=== PATIENT | female | born 1935 | race Caucasian/White ===

== ENCOUNTER 2018-12-26 23:33 | Emergency (ER) | payer OTHER, BC ==
[2018-12-27] MEDS ORDERED: HYDRALAZINE HCL 20 MG/ML VIAL ONE (00:16)
[2018-12-27] MEDS ORDERED: HYDROCODONE/APAP 10/325 TAB ONE (00:16)
[2018-12-27] MEDS ORDERED: HYDROCODONE/APAP 5/325 MG TAB ONE (00:19)
[2018-12-27 00:44] LABS: Absolute Lymphocytes (CBC) 2.4 K/uL (0.7-4.9); Absolute Monocytes 0.8 K/uL (0.1-1.3); Absolute Neutrophil 7.7 K/uL (1.8-8.0); Basophils % 0.6 % (0-1.3); Eosinophils % 0.1 % (0-4.4); Hematocrit 38.3 % (36.0-45.0); MPV 10.3 fL (7.6-11.3); Monocytes % 7.1 % (3.3-12.3); RBC Red Blood Cell Count 4.19 M/uL (3.86-4.86)
[2018-12-27 00:49] LABS: Potassium 4.2 mmol/L (3.5-5.1)
--- NOTE | 2018-12-27 00:52 | ER ---
Nurse's Notes [facility] Name: Julia Chappell Age: 83 yrs Sex: Female : 1935 Arrival Date: 12/26/2018 Time: 23:36 Bed 24 Private MD: Diagnosis: Hypertensive Urgency;Essential (primary) hypertension;Headache Presentation: 12/26 23:44 Presenting complaint: Patient states: neck pain and jaw pain x 6 weeks, BP was elevated tl2 tonight. Pt denies chest pain, dizziness or blurry vision. Transition of care: patient was not received from another setting of care. Onset of symptoms was December 26, 2018 at 22:00. Risk Assessment: Do you want to hurt yourself or someone else? Patient reports no desire to harm self or others. Initial Sepsis Screen: Does the patient meet any 2 criteria? No. Patient's initial sepsis screen is negative. Does the patient have a suspected source of infection? No. Patient's initial sepsis screen is negative. Care prior to arrival: None. 23:44 Method Of Arrival: Ambulatory tl2 23:44 Acuity: MAGI 3 tl2 Historical: - Allergies: 12/27 02:51 HYDRALAZINE; mg2 - Home Meds: 12/26 23:46 [place] Thyroid Oral [Active]; Zocor Oral [Active]; aspirin 81 mg Oral chew 1 tab once tl2 daily [Active]; timolol maleate 0.25 % Opht drop 1 drop once daily [Active]; - PMHx: 23:46 Hypertension; Hyperlipidemia; Hypothyroidism; tl2 - Immunization history:: Adult Immunizations up to date. - Social history:: Smoking status: Patient/guardian denies using tobacco. - Ebola Screening: : No symptoms or risks identified at this time. Screenin:47 Abuse screen: Denies threats or abuse. Nutritional screening: No deficits noted. tl2 Tuberculosis screening: No symptoms or risk factors identified. Fall Risk None identified. Assessment: 12/27 00:05 General: Appears in no apparent distress. comfortable, slender, well groomed, well tl3 developed, well nourished, Behavior is calm, cooperative, appropriate for age. Pain: Complains of pain in left temporal area. Neuro: Level of Consciousness is awake, alert, obeys commands, Oriented to person, place, time, situation, Appropriate for age. Cardiovascular: Patient's skin is warm and dry. Rhythm is sinus rhythm. Respiratory: Airway is patent Respiratory effort is even, unlabored, Respiratory pattern is regular, symmetrical. 01:03 Reassessment: patient for ct brain. pending discharge. mg2 02:18 Reassessment: ct brain done. waiting for official report. mg2 Vital Signs: 12/26 23:46 BP 200 / 99; Pulse 79; Resp 18; Pulse Ox 96% on R/A; Weight 66.22 kg; Height 5 ft. 3 tl2 in. (160.02 cm); Pain 4/10; 12/27 00:17 BP 186 / 68; Pulse 80; Resp 18; Pulse Ox 98% on R/A; tl3 00:51 BP 168 / 69; Pulse 77; Resp 17; Pulse Ox 100% on R/A; mg2 01:01 BP 112 / 91; Pulse 80; Resp 18; Pulse Ox 100% on R/A; mg2 02:16 BP 160 / 76; Pulse 80; Resp 18; Pulse Ox 100% on R/A; mg2 12/26 23:46 Body Mass Index 25.86 (66.22 kg, 160.02 cm) tl2 ED Course: 12/26 23:36 Patient arrived in ED. ds1 23:39 Osiris Ceron, ISABEL is Primary Nurse. tl3 23:45 Triage completed. tl2 23:46 Arm band placed on right wrist. tl2 23:49 Spenser Hurtado PA is PHCP. jr8 23:49 Ceasar Marques MD is Attending Physician. jr8 12/27 00:14 No provider procedures requiring assistance completed. Inserted saline lock: 20 gauge mg2 in right antecubital area, using aseptic technique. Blood collected. 00:17 Patient has correct armband on for positive identification. Bed in low position. Call tl3 light in reach. Side rails up X 1. Adult w/ patient. quality assurance monitor final on. Pulse ox on. NIBP on. 02:12 CT Head Brain wo Cont In Process Unspecified. EDMS 03:05 IV discontinued, intact, bleeding controlled, No redness/swelling at site. Pressure mg2 dressing applied. Administered Medications: 00:13 Drug: hydrALAZINE 10 mg Route: IV; Rate: calculated rate; Site: right antecubital; mg2 01:02 Follow up: Response: No adverse reaction; IV Status: Completed infusion mg2 00:13 Drug: [place] 5 mg-325 mg 1 tabs Route: PO; mg2 01:02 Follow up: Response: No adverse reaction; Marked relief of symptoms mg2 Outcome: 00:51 Discharge ordered by . jr8 02:07 Discharge ordered by . jr8 03:05 Discharged to home ambulatory, with family. mg2 03:05 Condition: stable 03:05 Discharge instructions given to patient, family, Instructed on discharge instructions, follow up and referral plans. Demonstrated understanding of instructions, follow-up care. 03:05 Patient left the ED. mg2 Signatures: Dispatcher [employer] EDRI Arcelia Quiñones ds1 Spenser Hurtado PA PA jr8 Dalila Anne RN RN tl2 Osiris Ceron RN RN tl3 Yash Peterson RN RN mg2 Corrections: (The following items were deleted from the chart) 00:17 00:05 Pain: Denies pain. tl3 tl3 02:18 01:03 Reassessment: patient for ct brain. pending discharge. mg2 mg2 02:51 02 23:46 Allergies: No Known Allergies; tl2 mg2
--- NOTE | 2018-12-27 00:52 | EDPHYS ---
Physician Documentation [facility] Name: Julia Chappell Age: 83 yrs Sex: Female : 1935 Arrival Date: 12/26/2018 Time: 23:36 Bed 24 Private MD: ED Physician Ceasar Marques HPI: 12/27 00:19 This 83 yrs old Female presents to ER via Ambulatory with complaints of Blood jr8 Pressure Problem. 00:19 Patient started to have temporal pain along with jaw pain approximately 6 weeks ago. jr8 Was worked up by PCP for temporal arteritis. Was negative for acute findings. Pain has been intermittent but became worse yesterday. Went to Urgent care and was given steroids yesterday. Today checked BP and noticed it to be abnormally high for her. Came to ED at that time for further evaluation . Severity of symptoms: At their worst the symptoms were mild in the emergency department the symptoms are unchanged. It is unknown whether or not the patient has had similar symptoms in the past. The patient has been recently seen by a physician:. Historical: - Allergies: 02:51 HYDRALAZINE; mg2 - Home Meds: 12/26 23:46 [place] Thyroid Oral [Active]; Zocor Oral [Active]; aspirin 81 mg Oral chew 1 tab once tl2 daily [Active]; timolol maleate 0.25 % Opht drop 1 drop once daily [Active]; - PMHx: 23:46 Hypertension; Hyperlipidemia; Hypothyroidism; tl2 - Immunization history:: Adult Immunizations up to date. - Social history:: Smoking status: Patient/guardian denies using tobacco. - Ebola Screening: : No symptoms or risks identified at this time. ROS: 12/27 00:19 Eyes: Negative for injury, pain, redness, and discharge, ENT: Negative for injury, jr8 pain, and discharge, Neck: Negative for injury, pain, and swelling, Cardiovascular: Negative for chest pain, palpitations, and edema, Respiratory: Negative for shortness of breath, cough, wheezing, and pleuritic chest pain, Abdomen/GI: Negative for abdominal pain, nausea, vomiting, diarrhea, and constipation, Back: Negative for injury and pain, MS/Extremity: Negative for injury and deformity, Skin: Negative for injury, rash, and discoloration. Neuro: Positive for headache, Negative for altered mental status, dizziness, gait disturbance, hearing loss, loss of consciousness, numbness, seizure activity, speech changes, syncope, near syncope, tingling, tinnitus, tremor, visual changes, weakness. Exam: 00:19 Eyes: Pupils equal round and reactive to light, extra-ocular motions intact. Lids and jr8 lashes normal. Conjunctiva and sclera are non-icteric and not injected. Cornea within normal limits. Periorbital areas with no swelling, redness, or edema. ENT: Nares patent. No nasal discharge, no septal abnormalities noted. Tympanic membranes are normal and external auditory canals are clear. Oropharynx with no redness, swelling, or masses, exudates, or evidence of obstruction, uvula midline. Mucous membranes moist. Neck: Trachea midline, no thyromegaly or masses palpated, and no cervical lymphadenopathy. Supple, full range of motion without nuchal rigidity, or vertebral point tenderness. No Meningismus. Cardiovascular: Regular rate and rhythm with a normal S1 and S2. No gallops, murmurs, or rubs. Normal PMI, no JVD. No pulse deficits. Respiratory: Lungs have equal breath sounds bilaterally, clear to auscultation and percussion. No rales, rhonchi or wheezes noted. No increased work of breathing, no retractions or nasal flaring. Abdomen/GI: Soft, non-tender, with normal bowel sounds. No distension or tympany. No guarding or rebound. No evidence of tenderness throughout. Back: No spinal tenderness. No costovertebral tenderness. Full range of motion. Skin: Warm, dry with normal turgor. Normal color with no rashes, no lesions, and no evidence of cellulitis. MS/ Extremity: Pulses equal, no cyanosis. Neurovascular intact. Full, normal range of motion. Neuro: Awake and alert, GCS 15, oriented to person, place, time, and situation. Cranial nerves II-XII grossly intact. Motor strength 5/5 in all extremities. Sensory grossly intact. Cerebellar exam normal. Normal gait. Vital Signs: 12/26 23:46 BP 200 / 99; Pulse 79; Resp 18; Pulse Ox 96% on R/A; Weight 66.22 kg; Height 5 ft. 3 tl2 in. (160.02 cm); Pain /10; 12/27 00:17 BP 186 / 68; Pulse 80; Resp 18; Pulse Ox 98% on R/A; tl3 00:51 BP 168 / 69; Pulse 77; Resp 17; Pulse Ox 100% on R/A; mg2 01:01 BP 112 / 91; Pulse 80; Resp 18; Pulse Ox 100% on R/A; mg2 02:16 BP 160 / 76; Pulse 80; Resp 18; Pulse Ox 100% on R/A; mg2 12/26 23:46 Body Mass Index 25.86 (66.22 kg, 160.02 cm) tl2 MDM: 12/26 23:49 Patient medically screened. jr8 12/27 00:50 Data reviewed: vital signs, nurses notes, lab test result(s), EKG, and as a result, I jr8 will discharge patient. Data interpreted: Pulse oximetry: on room air is 98 %. Interpretation: normal. Counseling: I had a detailed discussion with the patient and/or guardian regarding: the historical points, exam findings, and any diagnostic results supporting the discharge/admit diagnosis, lab results, the need for outpatient follow up, a family practitioner, to return to the emergency department if symptoms worsen or persist or if there are any questions or concerns that arise at home. ED course: Patients BP is coming down. Patient feeling better. No acute ECG or lab finding. Discussed with patient that she needs to f/u with PCP. Patient good with this plan . 12/26 23:53 Order name: CBC with Diff; Complete Time: 00:48 8 12/26 23:53 Order name: Basic Metabolic Panel; Complete Time: 00:50 8 12/26 23:53 Order name: EKG - Nurse/Tech; Complete Time: 00:14 8 12/27 01:02 Order name: CT Head Brain wo Cont mg2 12/26 23:53 Order name: IV; Complete Time: 00:14 8 Administered Medications: 00:13 Drug: hydrALAZINE 10 mg Route: IV; Rate: calculated rate; Site: right antecubital; mg2 01:02 Follow up: Response: No adverse reaction; IV Status: Completed infusion mg2 00:13 Drug: [place] 5 mg-325 mg 1 tabs Route: PO; mg2 01:02 Follow up: Response: No adverse reaction; Marked relief of symptoms mg2 Disposition: 03:29 Co-signature as Attending Physician, Ceasar Marques MD I agree with the assessment and kdr plan of care. Disposition: 12/27/18 02:07 Discharged to Home. Impression: Hypertensive Urgency, Essential (primary) hypertension, Headache. - Condition is Stable. - Discharge Instructions: Migraine Headache, Hypertension, Neuropathic Pain. - Medication Reconciliation Form, Thank You Letter, Antibiotic Education, Prescription Opioid Use form. - Follow up: Private Physician; When: 2 - 3 days; Reason: Recheck today's complaints, Continuance of care, Re-evaluation by your physician. - Problem is new. - Symptoms have improved. Signatures: Dispatcher [employer] EDMS Ceasar Marques MD MD kdr Roszak, Josh, PA PA jr8 Dalila Anne RN RN tl2 Yash Peterson RN RN mg2 Corrections: (The following items were deleted from the chart) 01:07 00:51 12/27/2018 00:51 Discharged to Home. Impression: Hypertensive Urgency; Essential jr8 (primary) hypertension. Condition is Stable. Forms are Medication Reconciliation Form, Thank You Letter, Antibiotic Education, Prescription Opioid Use. Follow up: Private Physician; When: 2 - 3 days; Reason: Recheck today's complaints, Continuance of care, Re-evaluation by your physician. Problem is new. Symptoms have improved. jr8 02:51 12/26 23:46 Allergies: No Known Allergies; tl2 mg2 12/27 03:05 02:07 12/27/2018 02:07 Discharged to Home. Impression: Hypertensive Urgency; Essential mg2 (primary) hypertension; Headache. Condition is Stable. Discharge Instructions: Migraine Headache, Hypertension, Neuropathic Pain. Forms are Medication Reconciliation Form, Thank You Letter, Antibiotic Education, Prescription Opioid Use. Follow up: Private Physician; When: 2 - 3 days; Reason: Recheck today's complaints, Continuance of care, Re-evaluation by your physician. Problem is new. Symptoms have improved. jr8
[2018-12-27 03:14] VITALS: O2SAT 100
[2018-12-27 03:16] VITALS: BP 160/76
--- NOTE | 2018-12-28 07:40 | EKG ---
Test Date: 2018-12-27 Test Time: 00:12:59 Reconstructive Dentist: TL MEASUREMENT RESULTS: Intervals: Rate: 72 WV: 166 QRSD: 96 QT: 388 QTc: 424 [place]: P: 56 WV: 166 QRS: -5 T: 50 INTERPRETIVE STATEMENTS: Normal sinus rhythm Left ventricular hypertrophy with repolarization abnormality Abnormal ECG Compared to ECG 08/26/2016 16:06:17 Left ventricular hypertrophy now present Early repolarization now present Electronically Signed On 12-28-18 07:37:49 CARDIAC REHABILITATION PROGRAM DIRECTOR by José Hazel
--- NOTE | 2018-12-28 20:34 | RAD REPORT ---
EXAM DESCRIPTION: CT - Head Brain Wo Cont - 12/27/2018 2:54 am CLINICAL HISTORY: The patient is 83 years old and is Female; HEADACHE TECHNIQUE: Axial computed tomography images of the head/brain without intravenous contrast. Sagittal and coronal reformatted images were created and reviewed. This CT exam was performed using one or more of the fo llowing dose reduction techniques: Automated exposure control, adjustment of the mA and/or kV accordi ng to patient size, and/or use of iterative reconstruction technique. COMPARISON: No relevant prior studies available. FINDINGS: Brain: Mild diffuse cerebral atrophy is present. The patricia-white matter differentiation is preserved. No hemorrhage. No significant white matter disease. No edema. No extra-axial fluid collect ions. Ventricles: Unremarkable. No ventriculomegaly. Bones/joints: No acute fracture. Sinuses: Unremarkable as visualized. No acute sinusitis. Mastoid air cells: Unremarkable as visualized. No mastoid effusion. IMPRESSION: No acute intracranial findings. Electronically signed by Negin Murray MD 12/27/2018 2:17 AM PLANT TECH Due to temporary technical issues with the PACS/Fluency reporting system, reports are being signed by the in house radiologist as a courtesy to ensure prompt reporting. The interpreting radiologist is f ully responsible for the content of the report.
== END 2018-12-27 03:05 | disposition home or self-care (01) ==
LOC: ER 23:33
DX: I16.0 Hypertensive urgency (principal); I10 Essential (primary) hypertension; E78.5 Hyperlipidemia, unspecified; E03.9 Hypothyroidism, unspecified; Z79.82 Long term (current) use of aspirin; Z88.8 Allergy status to other drugs, medicaments and biological substances
CPT/HCPCS: 36415; 70450; 80048; 85025; 93005; 96365; 99284; J0360

== ENCOUNTER 2023-06-07 14:07 | Emergency (ER) | payer OTHER, BC ==
--- OUTSIDE RECORDS SUMMARY | 2023-06-07 14:14 | XMS REPORT | Continuity of Care Document ---
:1935 Author Organization [facility] t Address [address] [place] [address] [address] [place] [address] Care Team Providers Name Role Phone Jaime Gerardo Attending Clinician Tobias Attending Clinician Unavailable Tim Gonsalez Attending Clinician Unavailable Phil Thompson Attending Clinician Tomas Bridges Attending Clinician Tobias Admitting Clinician Unavailable Tim Gonsalez Admitting Clinician Unavailable Tomas Bridges Admitting Clinician Payers Payer Name Policy Type Policy Number Effective Date Expiration Date Lana pike [place]: [id number] 2001 Sealed 00:00:00 [place] [id number] (MEDICARE 00:00:00 SUPPLEMENT) MEDICARE PART A \T\ [id number] 2001 B 00:00:00 BCBS TRADITIONAL [id number] 2001 00:00:00 Problems Condition Condition Condition Status Onset Resolution Last Treating Co mments Source Name Details Category Date Date Treatment Clinician Date Exostosis Exostosis Problem Active Aza nico of left of Left 9-27 Orthope foot Foot 00:00: dic 00 Sports Medicin e Metatarsal Metatarsal Problem Active A maria elena ye cassi 3-27 Orthope 00:00: dic 00 Sports Medicin e Acquired Acquired Problem Active Azale a deformity Deformity 3-27 Orth ope of toe of of Toe of 00:00: dic left foot Left Foot 00 Spor ts Medicin e Asthenia Asthenia Problem Active Azale a 1-03 Orthope 00:00: dic 00 Sports Medicin e Knee joint Knee Joint Problem Active 2015-11 A zalea effusion Effusion - Orthop e 00:00: dic 00 Sports Medicin e 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 1- Or thope knee joint Knee Joint 00:00: di c 00 Sports Medicin e Infected Infected Problem Active Azale a olecranon Olecranon 9- Orth ope bursa Bursa 00:00: dic 00 Sports Medicin e FALL FALL Diagnosis Active 2015-05-21 Mem oria Active 05-19 20:15:00 l 05/19/2015 16:30: Enrique warner [facility] [place] [facility] [employer] Problem Active Marli fracture Fracture 05-19 Orthop e 00:00: dic 00 Sports Medicin e Osteoarthr Osteoarthr Problem Active A zalea itis of itis of 05-11 Orthope knee Knee 00:00: dic 00 Sports Medicin e 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 05-11 Or thope t t 00:00: dic 00 Sports Medicin e Osteoarthr Osteoarthr Problem Active A zalea itis itis 2-05 Orthope 00:00: dic 00 Sports Medicin e OSTEOARTHR OSTEOARTH Diagnosis Active 2010-112011-10-16 Memoria ITIS RIGHT RITIS 0- 21:51:00 l KNEE CPT RIGHT KNEE 00:00: Yue ram [id number] CPT 03365 00 Active 09/04/2011 [facility] RIGHT KNEE RIGHT Diagnosis Active 2011-08-27 Memoria PAIN KNEE PAIN 11-10 14:29:00 l Active 00:00: Benedict 11/10/2000 00 [facility] 715.96 715.96 Diagnosis Active 2011-10-24 Me moria Active 11-10 13:39:00 l 11/10/2000 00:00: Enrique warner 00 [facility] RIGHT KNEE RIGHT Diagnosis Active 2000-2013-10-11 Memoria PAIN KNEE PAIN 11-10 10:16:00 l 715.96 715.96 00:00: [place] Active 00 11/10/2000 [facility] RIGHT KNEE RIGHT Diagnosis Active 2012-10-05 Memoria OSTEOARTHR KNEE 11-10 10:52:00 l ITIS OSTEOARTHR 00:00: Enrique n ITIS 00 Active 11/10/2000 [facility] RIGHT KNEE RIGHT Diagnosis Active 2014-10-10 Memoria 715.96 KNEE 11-10 10:51:00 l 715.96 00:00: [place] Active 00 11/10/2000 [facility] Gallstone Problem Active 2012-10-07 Me moria Gallstone 10:08:27 l Active [place] Problem 10/07/2012 [facility] Glaucoma Glaucoma Problem Active 2012-10-07 Memoria Active 10:08:27 l Problem [place] 10/07/2012 [facility] Hyperchole Hyperchol Problem Active 2012-10-07 Memoria sterolemia esterolemi 10:08:27 l a Active Benedict Problem 10/07/2012 [facility] Hypothyroi Hypothyro Problem Active 2012-10-07 Memoria dism idism 10:08:27 l Active Benedict Problem 10/07/2012 [facility] Gallbladde Gallbladd Problem Active 2015-05-22 Memoria r calculus er 03:56:57 l (disorder) calculus Herm leanna (disorder) Active Problem 05/22/2015 [facility] Glaucoma Glaucoma Problem Active 2015-05-22 Memoria (disorder) (disorder) 03:56:57 l Active Benedict Problem 05/22/2015 [facility] Hyperchole Problem Active 2015-05-22 M emoria sterolemia Hyperchole 03:56:57 l (disorder) sterolemia He rmann (disorder) Active Problem 05/22/2015 [facility] Arthralgia Arthralgi Problem Active 2015-05-22 Memoria of the a of the 03:56:57 l lower leg lower leg Herm leanna (finding) (finding) Active Problem 05/22/2015 [facility] ADMINISTRT ADMINISTR Diagnosis Active 2011-10-16 Memoria VE ENCOUNT TVE 21:51:00 l NOS ENCOUNT [place] NOS Active [facility] OSTEOARTHR OSTEOARTH Diagnosis Active 2014-10-10 Memoria OS ROS 10:51:00 l NOS-L/LEG NOS-L/LEG Herm leanna Active [facility] OSTEOARTHR Diagnosis Active 2012-10-05 Memoria O NOS-OTH OSTEOARTHR 10:52:00 l SITE O NOS-OTH Benedict SITE Active [facility] Carpal Carpal Problem Active 2023-03-02 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 Enrique n (disorder) (disorder) Active Problem 03/02/2023 [facility] Cough Cough Problem Active 2023-03-02 Memor ia (finding) (finding) 11:33:51 l Active [place] Problem 03/02/2023 [facility] Hand pain Hand pain Problem Active 2023-03-02 Memoria (finding) (finding) 11:33:51 l Active Benedict Problem 03/02/2023 [facility] Hyperlipid Hyperlipi Problem Active 2023-03-02 Memoria emia demia 11:33:51 l (disorder) (disorder) He rmann Active Problem 03/02/2023 [facility] Hypertensi Hypertens Problem Active 2023-03-02 Memoria ve alanis 11:33:51 l disorder, disorder, Herm leanna systemic systemic arterial arterial (disorder) (disorder) Active Problem 03/02/2023 [facility] Hypothyroi Hypothyro Problem Active 2023-03-02 Memoria dism idism 11:33:51 l (disorder) (disorder) He rmann Active Problem 03/02/2023 [facility], [facility] [place] Paresthesi Paresthes Problem Active 2023-03-02 Memoria a ia 11:33:51 l (finding) (finding) Herm leanna Active Problem 03/02/2023 [facility] Right knee Right Problem Active 2013-10-13 M emoria pain knee pain 22:22:26 l Active Benedict Problem 10/13/2013 [facility] History of Past Illness Condition Condition Condition Status Onset Resolution Last Treating Co mments Source Name Details Category Date Date Treatment Clinician Date Discharge Discharge Problem 2015-05-22 2015-05-22 Memoria Diagnosis: Diagnosis: 05-19 03:56:57 03:56:57 l Laceration Laceration 05:00: He rmann of nose of nose 00 05/19/2015 05/22/2015 [facility] Discharge Discharge Problem 2015-05-22 2015-05-22 Memoria Diagnosis: Diagnosis: 05-19 03:56:57 03:56:57 l Closed Closed 05:00: [place] fracture fracture 00 of left of left distal distal radius radius 05/19/2015 05/22/2015 [facility] Discharge Problem 2015-05-22 2015-05-22 Memoria Diagnosis: Discharge 05-19 03:56:57 03:56:57 l Laceration Diagnosis: 05:00: He rmann of lip Laceration 00 of lip 05/19/2015 05/22/2015 [facility] Discharge Discharge Problem 2015-05-22 2015-05-22 Memoria Diagnosis: Diagnosis: 05-19 03:56:57 03:56:57 l Blunt head Blunt head 05:00: He rmann trauma trauma 00 05/19/2015 05/22/2015 [facility] Allergies, Adverse Reactions, Alerts Allergy Allergy Status Severity Reaction(s) Onset Inactive Treating Comm ents Source Name Type Date Date Clinician No Known DA Active [facility] All[facility]ie 9- [place] s 00:00: [facility] 00 [facility] No Known DA Active [facility] Drug 3 [place] Allergie 00:00: Orthope s 00 dic Hospita l NKFA NKFA Active Memoria l Benedict NO KNOWN Drug Active [facility] ALLERGIE Class ity of [facility] Social History Social Habit Start Date Stop Date Quantity Comments Source Social History 2022-04-26 2022-04-26 Rand snow 19:24:57 19:24:57 Smoking Status Start Date Stop Date Source Tobacco smoking status [facility] Benedict Medications Ordered Filled Start Stop Current Ordering Indication Dosage Frequency Signature Comments Components Source Medication Medication Date Date Medication? Clinician (SIG) Name Name omeprazole No TAKE 1 Memor ia 20 mg oral 6-17 CAPSULE BY l delayed 19:54: MOUTH [place] release 00 EVERY DAY capsule omeprazole No TAKE 1 Memor ia 20 mg oral 6-17 CAPSULE BY l delayed 19:54: MOUTH Benedict release 00 EVERY DAY capsule levobunolol Yes INSTILL 1 M emoria ophthalmic 6-17 DROP IN l 0.5% 19:35: BOTH EYES [place] solution 00 EVERY 12 HOURS levobunolol Yes INSTILL 1 M emoria ophthalmic 6-17 DROP IN l 0.5% 19:35: BOTH EYES [place] solution 00 EVERY 12 HOURS latanoprost Yes 1 drp, Louis shannan ophthalmic 6-17 BOTH EYES, l 0.005% 19:33: QPM, 0 Benedict solution 00 Refill(s) latanoprost Yes 1 drp, Louis shannan ophthalmic 6-17 BOTH EYES, l 0.005% 19:33: QPM, 0 Benedict solution 00 Refill(s) Vitamin C Yes 250 mg = 1 Me moria 250 mg oral 6-17 tab, PO, l tablet 19:32: Daily, 0 [place] 00 Refill(s) Vitamin C Yes 250 mg = 1 Me moria 250 mg oral 6-17 tab, PO, l tablet 19:32: Daily, 0 Benedict 00 Refill(s) [place] Yes 60 mg = 1 Memori a Thyroid 60 6-17 tab, PO, l mg oral 19:31: Daily, 0 Enrique n tablet 00 Refill(s) [place] Yes 60 mg = 1 Memori a Thyroid 60 6-17 tab, PO, l mg oral 19:31: Daily, 0 Enrique n tablet 00 Refill(s) biotin Yes 2,000 mg, Memori a 6-17 PO, Daily, l 19:30: 0 [place] 00 Refill(s) biotin Yes 2,000 mg, Memori a 6-17 PO, Daily, l 19:30: 0 Benedict 00 Refill(s) Co Q-10 0 Yes 60 mg, PO, Louis shannan 6-17 Daily, 0 l 19:29: Refill(s) [place] 00 Co Q-10 0 Yes 60 mg, PO, Louis shannan 6-17 Daily, 0 l 19:29: Refill(s) [place] 00 Florajen Yes PO, Daily, Mem oria Women 6-17 0 l 19:28: Refill(s) Florajen Yes PO, Daily, Mem oria Women 6-17 0 l 19:28: Refill(s) rosuvastati Yes 0 Memori a n 20 mg 6-17 Refill(s) l oral tablet 19:27: Enrique rosuvastati Yes 0 Memori a n 20 mg 6-17 Refill(s) l oral tablet 19:27: Enrique amLODIPine Yes 0 Memoria 5 mg oral 6-17 Refill(s) l tablet 19:25: amLODIPine Yes 0 Memoria 5 mg oral 6-17 Refill(s) l tablet 19:25: amoxicillin Yes 875 mg = 1 Memoria 875 mg oral 7-11 tab, PO, l tablet 01:13: BID, X 14 Enrique n day, # 28 tab, 0 Refill(s) amoxicillin Yes 875 mg = 1 Memoria 875 mg oral 7-11 tab, PO, l tablet 01:13: BID, X 14 Enrique n 00 day, # 28 tab, 0 Refill(s) tramadol Yes 1 - 2 Memoria hydrochlori 7-11 tabs, PO, l de 50 MG 01:00: Q4-6H, PRN Her ingram Oral Tablet 00 Pain Score [Ultram] 4-6, X 4 day, # 30 tab, 0 Refill(s) tramadol Yes 1 - 2 Memoria hydrochlori 7-11 tabs, PO, l de 50 MG 01:00: Q4-6H, PRN Her ingram Oral Tablet 00 Pain Score [Ultram] 4-6, X 4 day, # 30 tab, 0 Refill(s) tramadol No 50 mg, Memoria hydrochlori 7-11 Route: PO, l de 50 MG 00:47: Drug form: Her ingram Oral Tablet 00 TAB, ONCE, [Ultram] Dosing Weight 65.455, kg, Priority: STAT, Start date: 05/19/15 19:47:00, Stop date: 05/19/15 19:47:00 tramadol 2014-0 No 50 mg, Memoria hydrochlori 7-11 Route: PO, l de 50 MG 00:47: Drug form: Her ingram Oral Tablet 00 TAB, ONCE, [Ultram] Dosing Weight 65.455, kg, Priority: STAT, Start date: 05/19/15 19:47:00, Stop date: 05/19/15 19:47:00 Fentanyl 2014-0 No 25 Memoria 7-11 microgram, l 00:02: Route: [place] 00 IVP, ONCE, Dosing Weight 65.455, kg, Priority: STAT, Start date: 05/19/15 19:02:00, Stop date: 05/19/15 19:02:00 Fentanyl 2014-0 No 25 Memoria 7-11 microgram, l 00:02: Route: Benedict 00 IVP, ONCE, Dosing Weight 65.455, kg, Priority: STAT, Start date: 05/19/15 19:02:00, Stop date: 05/19/15 19:02:00 Phenergan 2010-11 No Tomas L 25 mg, 1 M emoria 1-30 [place] mL, Route: l 22:38: IVPB, Q6H, Benedict 00 PRN Nausea & Vomiting, Start date: 10/09/11 16:38:00, Duration: 30 day, Stop date: 11/08/11 16:37:00 Phenergan 2010-11 No Tomas L 25 mg, 1 M emoria 1-30 [place] mL, Route: l 22:38: IVPB, Q6H, [place] 00 PRN Nausea & Vomiting, Start date: 10/09/11 16:38:00, Duration: 30 day, Stop date: 11/08/11 16:37:00 Reglan 2010-11 No Tomas L 10 mg, 2 Louis shannan 1-30 [place] mL, Route: l 22:36: IV, Drug Benedict 00 form: INJ, Q8H, PRN See Nurse's Notes, Start date: 10/09/11 16:36:00, Duration: 30 day, Stop date: 11/08/11 16:35:00 Reglan 2010-11 No Tomas L 10 mg, 2 Louis shannan 1-30 [place] mL, Route: l 22:36: IV, Drug [place] 00 form: INJ, Q8H, PRN See Nurse's Notes, Start date: 10/09/11 16:36:00, Duration: 30 day, Stop date: 11/08/11 16:35:00 Xalatan 2010-11 No Glenn Donald 1 drp, Me moria 12-09 [place] Route: l 03:00: BOTH EYES, [place] 00 Bedtime, Drug form: SOLN, Start date: 10/08/11 21:00:00, Duration: 30 day, Stop date: 11/06/11 21:00:00 Xalatan 2010-11 No Glenn Donald 1 drp, Me moria 12-09 [place] Route: l 03:00: BOTH EYES, [place] Bedtime, Drug form: SOLN, Start date: 10/08/11 21:00:00, Duration: 30 day, Stop date: 11/06/11 21:00:00 Protonix 2010-11 No Tomas L 40 mg, 1 Me moria 12-08 [place] tab, l 22:30: Route: PO, [place] 00 Drug form: ECTAB, Before Dinner, Start date: 10/08/11 16:30:00, Duration: 30 day, Stop date: 11/06/11 16:30:00 Protonix 2010-11 No Tomas L 40 mg, 1 Me moria 12-08 [place] tab, l 22:30: Route: PO, Benedict 00 Drug form: ECTAB, Before Dinner, Start date: 10/08/11 16:30:00, Duration: 30 day, Stop date: 11/06/11 16:30:00 Floranex 2010-11 No Tomas L 1 tab, Louis shannan 12-08 [place] Route: PO, l 16:15: Drug Form: [place] 00 TAB, BID, Start date: 10/08/11 10:15:00, Duration: 30 day, Stop date: 11/07/11 9:00:00 Floranex 2010-11 No Tomas L 1 tab, Louis shannan 12-08 [place] Route: PO, l 16:15: Drug Form: Benedict 00 TAB, BID, Start date: 10/08/11 10:15:00, Duration: 30 day, Stop date: 11/07/11 9:00:00 ferrous 2010-11 No Tomas L 325 mg, 1 Me moria sulfate 12-08 [place] tab, l 15:57: Route: PO, Benedict 00 Drug form: TAB, BID, Start date: 10/08/11 9:57:00, Duration: 30 day, Stop date: 11/07/11 9:00:00 ferrous 2010-11 No Tomas L 325 mg, 1 Me moria sulfate 12-08 [place] tab, l 15:57: Route: PO, Benedict 00 Drug form: TAB, BID, Start date: 10/08/11 9:57:00, Duration: 30 day, Stop date: 11/07/11 9:00:00 Senokot 2010-11 No Tomas L 8.6 mg, 1 Me moria 12-08 [place] tab, l 15:00: Route: PO, [place] 00 Drug form: TAB, Daily, Start date: 10/08/11 9:00:00, Duration: 30 day, Stop date: 11/06/11 9:00:00 Vitamin D3 2010-11 No Glenn Donald 2,000 Memoria - [place] IntlUnit, l 15:00: 2 tab, [place] 00 Route: PO, Drug form: TAB, BID, Start date: 10/08/11 9:00:00, Duration: 30 day, Stop date: 11/06/11 17:00:00 Estrace 2010-11 No Glenn Donald 0.5 mg, M emoria 12-08 [place] 0.5 tab, l 15:00: Route: PO, Benedict 00 Drug form: TAB, QAM, Start date: 10/08/11 9:00:00, Duration: 30 day, Stop date: 11/06/11 9:00:00 multivitami 2010-11 No Glenn Donald 1 tab, Memoria n 1-29 [place] Route: PO, l 15:00: Drug Form: [place] TAB, QAM, Start date: 10/08/11 9:00:00, Duration: 30 day, Stop date: 11/06/11 9:00:00 Senokot 2010-11 No Tomas L 8.6 mg, 1 Me moria 12-08 [place] tab, l 15:00: Route: PO, Benedict 00 Drug form: TAB, Daily, Start date: 10/08/11 9:00:00, Duration: 30 day, Stop date: 11/06/11 9:00:00 Vitamin D3 2010-11 No Glenn Donald 2,000 Memoria 1-29 [place] IntlUnit, l 15:00: 2 tab, Route: PO, Drug form: TAB, BID, Start date: 10/08/11 9:00:00, Duration: 30 day, Stop date: 11/06/11 17:00:00 Estrace 2010-11 No Glenn Donald 0.5 mg, M emoria 1- [place] 0.5 tab, l 15:00: Route: PO, Drug form: TAB, QAM, Start date: 10/08/11 9:00:00, Duration: 30 day, Stop date: 11/06/11 9:00:00 multivitami 2010-11 No Glenn Donald 1 tab, Memoria n 1-29 [place] Route: PO, l 15:00: Drug Form: TAB, QAM, Start date: 10/08/11 9:00:00, Duration: 30 day, Stop date: 11/06/11 9:00:00 Levothroid 2010-11 No Glenn Donald 0.05 mg, 1 Memoria 1-29 [place] tab, l 14:00: Route: PO, Drug form: TAB, [id number], Start date: 10/08/11 8:00:00, Duration: 30 day, Stop date: 11/07/11 6:30:00 Levothroid 2010-11 No Glenn Donald 0.05 mg, 1 Memoria 1-29 [place] tab, l 14:00: Route: PO, Drug form: TAB, [id number], Start date: 10/08/11 8:00:00, Duration: 30 day, Stop date: 11/07/11 6:30:00 Lovenox 2010-11 No Tomas L 30 mg, 0.3 M emoria - [place] mL, Route: l 13:00: SUB-Q, Drug form: INJ, [id number], Start date: 10/08/11 7:00:00, Duration: 30 day, Stop date: 11/06/11 19:00:00 Lovenox 2010-11 No Tomas L 30 mg, 0.3 M emoria 1-29 [place] mL, Route: l 13:00: SUB-Q, Drug form: INJ, [id number], Start date: 10/08/11 7:00:00, Duration: 30 day, Stop date: 11/06/11 19:00:00 cefazolin 2010-11 No Tomas L 2 gm, 100 Memoria 1-29 [place] mL, Route: l 03:30: IVPB, Drug form: INJ, [id number], Start date: 10/07/11 21:30:00, Stop date: 10/08/11 13:30:00 cefazolin 2010-11 No Tomas L 2 gm, 100 Memoria 1-29 [place] mL, Route: l 03:30: IVPB, Drug form: INJ, [id number], Start date: 10/07/11 21:30:00, Stop date: 10/08/11 13:30:00 Benadryl 2010-11 No Tomas L 25 mg, 1 Me moria 12-08 [place] cap, l 00:59: Route: PO, Drug form: CAP, Q6H, PRN Itching, Start date: 10/07/11 18:59:00, Duration: 30 day, Stop date: 11/06/11 18:58:00 Benadryl 2010-11 No Tomas L 25 mg, 1 Me moria 12-08 [place] cap, l 00:59: Route: PO, Drug form: CAP, Q6H, PRN Itching, Start date: 10/07/11 18:59:00, Duration: 30 day, Stop date: 11/06/11 18:58:00 Dulcolax 2010-11 No Tomas L 10 mg, 1 Me moria Laxative 12-08 [place] supp, l 00:58: Route: VT, Drug form: SUPP, Daily, PRN Constipati on, Start date: 10/07/11 18:58:00, Duration: 30 day, Stop date: 11/06/11 18:57:00 Dulcolax 2010-11 No Tomas L 10 mg, 1 Me moria Laxative 12-08 [place] supp, l 00:58: Route: VT, Benedict Drug form: SUPP, Daily, PRN Constipati on, Start date: 10/07/11 18:58:00, Duration: 30 day, Stop date: 11/06/11 18:57:00 Dulcolax 2010-11 No Tomas L 5 mg, 1 Mem oria Laxative 12-08 [place] tab, l 00:57: Route: PO, Benedict Drug form: ECTAB, Daily, PRN Constipati on, Start date: 10/07/11 18:57:00, Duration: 30 day, Stop date: 11/06/11 18:56:00 Dulcolax 2010-11 No Tomas L 5 mg, 1 Mem oria Laxative 12-08 [place] tab, l 00:57: Route: PO, Benedict Drug form: ECTAB, Daily, PRN Constipati on, Start date: 10/07/11 18:57:00, Duration: 30 day, Stop date: 11/06/11 18:56:00 Milk of 2010-11 No Tomas L 60 mL, Memor ia Magnesia 12-08 [place] Route: PO, l 00:56: Drug Form: Benedict 00 SUSP, Daily, PRN Constipati on, Start date: 10/07/11 18:56:00, Duration: 30 day, Stop date: 11/06/11 18:55:00 Milk of 2010-11 No Tomas L 60 mL, Memor ia Magnesia 12-08 [place] Route: PO, l 00:56: Drug Form: Benedict 00 SUSP, Daily, PRN Constipati on, Start date: 10/07/11 18:56:00, Duration: 30 day, Stop date: 11/06/11 18:55:00 docusate 2010-11 No Tomas L 100 mg, 1 M emoria sodium 100 12-08 [place] cap, l mg oral 00:54: Route: PO, Herm leanna capsule Drug form: CAP, BID, Start date: 10/07/11 18:54:00, Duration: 30 day, Stop date: 11/06/11 17:00:00 docusate 2010-11 No Tomas L 100 mg, 1 M emoria sodium 100 12-08 [place] cap, l mg oral 00:54: Route: PO, Herm leanna capsule Drug form: CAP, BID, Start date: 10/07/11 18:54:00, Duration: 30 day, Stop date: 11/06/11 17:00:00 Restoril 2010-11 No Tomas L 15 mg, 1 Me moria 12-08 [place] cap, l 00:53: Route: PO, Benedict Drug form: CAP, Bedtime, PRN Sleep, Start date: 10/07/11 18:53:00, Duration: 30 day, Stop date: 11/06/11 18:52:00 Tylenol 2010-11 No Tomas L 650 mg, 2 Me moria 12-08 [place] tab, l 00:53: Route: PO, [place] Drug form: TAB, Q4H, PRN Temperatur e >101.0, Start date: 10/07/11 18:53:00, Duration: 30 day, Stop date: 11/06/11 18:52:00 Restoril 2010-11 No Tomas L 15 mg, 1 Me moria 12-08 [place] cap, l 00:53: Route: PO, Benedict 00 Drug form: CAP, Bedtime, PRN Sleep, Start date: 10/07/11 18:53:00, Duration: 30 day, Stop date: 11/06/11 18:52:00 Tylenol 2010-11 No Tomas L 650 mg, 2 Me moria 12-08 [place] tab, l 00:53: Route: PO, [place] Drug form: TAB, Q4H, PRN Temperatur e >101.0, Start date: 10/07/11 18:53:00, Duration: 30 day, Stop date: 11/06/11 18:52:00 Phenergan 2010-11 No Tomas L 25 mg, 1 M emoria 12-08 [place] mL, Route: l 00:52: IM, Drug Benedict form: INJ, Q6H, PRN Nausea, Start date: 10/07/11 18:52:00, Duration: 30 day, Stop date: 11/06/11 18:51:00 Zofran 2010-11 No Tomas L 4 mg, 2 Memor ia 1-29 [place] mL, Route: l 00:52: IVP, Drug [place] 00 form: INJ, Q8H, PRN Nausea, Start date: 10/07/11 18:52:00, Duration: 30 day, Stop date: 11/06/11 18:51:00 Phenergan 2010-11 No Tomas L 25 mg, 1 M emoria 1-29 [place] mL, Route: l 00:52: IM, Drug [place] form: INJ, Q6H, PRN Nausea, Start date: 10/07/11 18:52:00, Duration: 30 day, Stop date: 11/06/11 18:51:00 Zofran 2010-11 No Tomas L 4 mg, 2 Memor ia 1-29 [place] mL, Route: l 00:52: IVP, Drug [place] form: INJ, Q8H, PRN Nausea, Start date: 10/07/11 18:52:00, Duration: 30 day, Stop date: 11/06/11 18:51:00 ketorolac 2010-11 No Tomas L 15 mg, 0.5 Memoria 30 mg/mL 1-29 [place] mL, Route: l injectable 00:50: IV, Drug Her ingram solution 00 form: INJ, Q6H, PRN Breakthrou gh Pain, Start date: 10/07/11 18:50:00, Duration: 4 doses or times, Stop date: Limited # of times ketorolac 2010-11 No Tomas L 15 mg, 0.5 Memoria 30 mg/mL 1-29 [place] mL, Route: l injectable 00:50: IV, Drug Her ingram solution 00 form: INJ, Q6H, PRN Breakthrou gh Pain, Start date: 10/07/11 18:50:00, Duration: 4 doses or times, Stop date: Limited # of times morphine 2010-11 No Tomas L 8 mg, 2 Mem oria Sulfate 1-29 [place] mL, Route: l 00:48: IM, Drug Benedict 00 form: INJ, Q4H, PRN Pain, Start date: 10/07/11 18:48:00, Duration: 30 day, Stop date: 11/06/11 18:47:00 morphine 2010-11 No Tomas L 8 mg, 2 Mem oria Sulfate 12-08 [place] mL, Route: l 00:48: IM, Drug [place] 00 form: INJ, Q4H, PRN Pain, Start date: 10/07/11 18:48:00, Duration: 30 day, Stop date: 11/06/11 18:47:00 acetaminoph 2010-11 No Tomas L 2 tab, M emoria en-hydrocod 12-08 [place] Route: PO, l one 325 00:46: Drug Form: Herm leanna mg-5 mg 00 TAB, Q4H, oral tablet PRN Pain, Start date: 10/07/11 18:46:00, Duration: 30 day, Stop date: 11/06/11 18:45:00 acetaminoph 2010-11 No Tomas L 2 tab, M emoria en-hydrocod 12-08 [place] Route: PO, l one 325 00:46: Drug Form: Herm leanna mg-5 mg 00 TAB, Q4H, oral tablet PRN Pain, Start date: 10/07/11 18:46:00, Duration: 30 day, Stop date: 11/06/11 18:45:00 acetaminoph 2010-11 No Tomas L 1 tab, M emoria en-hydrocod 12-08 [place] Route: PO, l one 325 00:45: Drug Form: Herm leanna mg-5 mg 00 TAB, Q4H, oral tablet PRN Pain, Start date: 10/07/11 18:45:00, Duration: 30 day, Stop date: 11/06/11 18:44:00 acetaminoph 2010-11 No Tomas L 1 tab, M emoria en-hydrocod 12-08 [place] Route: PO, l one 325 00:45: Drug Form: Herm leanna mg-5 mg 00 TAB, Q4H, oral tablet PRN Pain, Start date: 10/07/11 18:45:00, Duration: 30 day, Stop date: 11/06/11 18:44:00 Dextrose 5% 2010-11 No Tomas L 1,000 mL, Memoria with 0.9% 12-08 [place] Rate: 100 l NaCl IV 00:44: ml/hr, [place] 1,000 mL 00 Infuse over: 10 hr, Route: IV, Total Volume: 1,000, Start date: 10/07/11 18:44:00, Duration: 30 day, Stop date: 11/06/11 18:43:00 Dextrose 5% 2010-11 No Tomas L 1,000 mL, Memoria with 0.9% 12-08 [place] Rate: 100 l NaCl IV 00:44: ml/hr, [place] 1,000 mL 00 Infuse over: 10 hr, Route: IV, Total Volume: 1,000, Start date: 10/07/11 18:44:00, Duration: 30 day, Stop date: 11/06/11 18:43:00 Dilaudid 2010-11 No [place] I 0.5 mg, Me moria 12-07 Ankita Route: IV, l 22:05: ONCE, Benedict 00 Start date: 10/07/11 16:05:00, Stop date: 10/07/11 16:05:00 Dilaudid 2010-11 No [place] I 0.5 mg, Me moria 12-07 Ankita Route: IV, l 22:05: ONCE, Benedict 00 Start date: 10/07/11 16:05:00, Stop date: 10/07/11 16:05:00 ropivacaine 2010-11 No Tomas L 800 mg, Memoria 0.2% 800 mg 12-07 [place] 400 mL, 10 l 22:00: ml/hr, Benedict 00 Route: NERVE BLOCK, Drug Form: INJ, Start date: 10/07/11 16:00:00, Duration: 30 day, Stop date: 11/06/11 15:59:00 ropivacaine 2010-11 No Tomas L 800 mg, [facility] 0.2% 800 mg 12-07 [place] 400 mL, 10 l 22:00: ml/hr, [place] 00 Route: NERVE BLOCK, Drug Form: INJ, Start date: 10/07/11 16:00:00, Duration: 30 day, Stop date: 11/06/11 15:59:00 acetaminoph 2010-11 No Tomas L 2 tab, M emoria en-hydrocod 12-07 [place] Route: PO, l one 325 21:46: Drug Form: Herm leanna mg-10 mg 00 TAB, Q4H, oral tablet PRN Pain, Start date: 10/07/11 15:46:00, Duration: 30 day, Stop date: 11/06/11 15:45:00 acetaminoph 2010-11 No Tomas L 2 tab, M emoria en-hydrocod 12-07 [place] Route: PO, l one 325 21:46: Drug Form: Herm leanna mg-10 mg 00 TAB, Q4H, oral tablet PRN Pain, Start date: 10/07/11 15:46:00, Duration: 30 day, Stop date: 11/06/11 15:45:00 acetaminoph 2010-11 No Tomas L 1 tab, M emoria en-hydrocod 12-07 [place] Route: PO, l one 325 21:45: Drug Form: Herm leanna mg-10 mg 00 TAB, Q4H, oral tablet PRN Pain, Start date: 10/07/11 15:45:00, Duration: 30 day, Stop date: 11/06/11 15:44:00 acetaminoph 2010-11 No Tomas L 1 tab, M emoria en-hydrocod 12-07 [place] Route: PO, l one 325 21:45: Drug Form: Herm leanna mg-10 mg 00 TAB, Q4H, oral tablet PRN Pain, Start date: 10/07/11 15:45:00, Duration: 30 day, Stop date: 11/06/11 15:44:00 Dextrose 5% 2010-11 No Tomas L 1,000 mL, Memoria with 0.9% 1-28 [place] Rate: 100 l NaCl IV 21:44: ml/hr, [place] 1,000 mL 00 Infuse over: 10 hr, Route: IV, Total Volume: 1,000, Start date: 10/07/11 15:44:00, Duration: 30 day, Stop date: 11/06/11 15:43:00 Dextrose 5% 2010-11 No Tomas L 1,000 mL, [facility] with 0.9% 1-28 [place] Rate: 100 l NaCl IV 21:44: ml/hr, [facility] 1,000 mL 00 Infuse over: 10 hr, Route: IV, Total Volume: 1,000, Start date: 10/07/11 15:44:00, Duration: 30 day, Stop date: 11/06/11 15:43:00 cefazolin 2010-11 No Tomas L 2 gm, 100 Memoria 1-28 [place] mL, Route: l 12:00: IVPB, Drug [place] 00 form: INJSANTANA, Start date: 10/07/11 6:00:00, Duration: 1 doses or times, Stop date: 10/07/11 23:00:00 cefazolin 2010-11 No Tomas L 2 gm, 100 [facility] 1-28 [place] mL, Route: l 12:00: IVPB, Drug form: INJSANTANA, Start date: 10/07/11 6:00:00, Duration: 1 doses or times, Stop date: 10/07/11 23:00:00 albuterol albuterol No albuterol [facility]li sulfate HFA sulfate HFA sulfate [facility] 90 90 HFA 90 dic mcg/actuati mcg/actuati mcg/actuat Sports on aerosol on aerosol ion Med icin inhaler inhaler aerosol e inhaler amlodipine amlodipine No amlodipine Marli 5 mg tablet 5 mg tablet 5 mg [facility] TAKE 1 TAKE 1 tablet dic TABLET BY TABLET BY TAKE 1 Spo rts MOUTH EVERY MOUTH EVERY TABLET BY Medicin MORNING MORNING MOUTH e EVERY MORNING amoxicillin amoxicillin No amoxicilli Marli 500 mg 500 mg n 500 mg [facility] capsule capsule capsule dic TAKE 4 TAKE 4 TAKE 4 Sports CAPSULES BY CAPSULES BY CAPSULES Medicin MOUTH I MOUTH I BY MOUTH I e HOUR PRIOR HOUR PRIOR HOUR PRIOR TO DENTAL TO DENTAL TO DENTAL APPOINTMENT APPOINTMENT APPOINTMEN [facility] [place] [facility] Thyroid 60 Thyroid 60 Thyroid 60 [facility] mg tablet mg tablet mg tablet dic TAKE 1 TAKE 1 TAKE 1 Sports TABLET BY TABLET BY TABLET BY Medicin MOUTH DAILY MOUTH DAILY MOUTH e DAILY azithromyci azithromyci No azithromyc Marli n 250 mg n 250 mg in 250 mg Or thope tablet tablet tablet dic Sports Medicin e benzonatate benzonatate No benzonatat Marli 100 mg 100 mg e 100 mg [facility] capsule capsule capsule dic Sports Medicin e cefuroxime cefuroxime No cefuroxime Marli axetil 500 axetil 500 axetil 500 [facility] mg tablet mg tablet mg tablet dic Sports Medicin e ciclopirox ciclopirox No ciclopirox Marli 8 % topical 8 % topical 8 % [facility] solution solution topical dic solution Sports Medicin e Guaiatussin Guaiatussin No Guaiatussi Marli AC 10 AC 10 n AC 10 [facility] mg-100 mg/5 mg-100 mg/5 mg-100 dic mL oral mL oral mg/5 mL Sports liquid TAKE liquid TAKE oral M edicin 8 ML BY 8 ML BY liquid e MOUTH EVERY MOUTH EVERY TAKE 8 ML 6 HOURS 6 HOURS BY MOUTH NEEDED FOR NEEDED FOR EVERY 6 COUGH COUGH HOURS NEEDED FOR COUGH hydrocodone hydrocodone No hydrocodon Marli 5 5 e 5 [facility] mg-acetamin mg-acetamin mg-acetami dic ophen 325 ophen 325 nophen 325 [facility] mg tablet mg tablet mg tablet Medicin TAKE 1 TAKE 1 TAKE 1 e TABLET BY TABLET BY TABLET BY MOUTH EVERY MOUTH EVERY MOUTH 4 HOURS 4 HOURS EVERY 4 NEEDED FOR NEEDED FOR HOURS PAIN PAIN NEEDED FOR PAIN hydroxyzine hydroxyzine No hydroxyzin [facility]li HCl 25 mg HCl 25 mg e HCl 25 [facility] tablet TAKE tablet TAKE mg tablet dic 1 TABLET BY 1 TABLET BY TAKE 1 Sports MOUTH TWICE MOUTH TWICE TABLET BY Medicin DAILY DAILY MOUTH e NEEDED NEEDED TWICE DAILY NEEDED latanoprost latanoprost No latanopros Marli 0.005 % eye 0.005 % eye t 0.005 % [facility] drops drops eye drops dic INSTILL 1 INSTILL 1 INSTILL 1 Sports DROP INTO DROP INTO DROP INTO Medicin BOTH EYES BOTH EYES BOTH EYES e AT BEDTIME AT BEDTIME AT BEDTIME levobunolol levobunolol No levobunolo Marli 0.5 % eye 0.5 % eye l 0.5 % [facility] drops drops eye drops dic INSTILL 1 INSTILL 1 INSTILL 1 Sports DROP IN DROP IN DROP IN Medici n BOTH EYES BOTH EYES BOTH EYES e EVERY 12 EVERY 12 EVERY 12 HOURS HOURS HOURS levofloxaci levofloxaci No levofloxac Marli n 250 mg n 250 mg in 250 mg Or [facility] tablet TAKE tablet TAKE tablet dic 1 TABLET BY 1 TABLET BY TAKE 1 Sports MOUTH EVERY MOUTH EVERY TABLET BY Medicin DAY FOR 14 DAY FOR 14 MOUTH e DAYS DAYS EVERY DAY FOR 14 DAYS omeprazole omeprazole No omeprazole [facility] 20 mg 20 mg 20 mg [facility] capsule,del capsule,del capsule,de dic ayed ayed layed Sports release release release Medici n TAKE 1 TAKE 1 TAKE 1 e CAPSULE BY CAPSULE BY CAPSULE BY MOUTH EVERY MOUTH EVERY MOUTH DAY DAY EVERY DAY ondansetron ondansetron No ondansetro Marli 4 mg 4 mg n 4 mg [facility] disintegrat disintegrat disintegra dic ing tablet ing tablet ting Spo rts tablet Medicin e ondansetron ondansetron No ondansetro Marli HCl 8 mg HCl 8 mg n HCl 8 mg [facility] tablet TAKE tablet TAKE tablet dic 1 TABLET BY 1 TABLET BY TAKE 1 Sports MOUTH EVERY MOUTH EVERY TABLET BY Medicin 8 HOURS 8 HOURS MOUTH e NEEDED FOR NEEDED FOR EVERY 8 NAUSEA OR NAUSEA OR HOURS VOMITING VOMITING NEEDED FOR NAUSEA OR VOMITING pravastatin pravastatin No pravastati Marli 40 mg 40 mg n 40 mg [facility] tablet RX tablet RX tablet RX dic by other MD by other MD by other Sports MD Medicin e prednisone prednisone No prednisone Marli 10 mg 10 mg 10 mg [facility] tablet tablet tablet dic PLEASE SEE PLEASE SEE PLEASE SEE Sports ATTACHED ATTACHED ATTACHED Med icin FOR FOR FOR e DETAILED DETAILED DETAILED DIRECTIONS DIRECTIONS DIRECTIONS pregabalin pregabalin No pregabalin Marli 50 mg 50 mg 50 mg [facility] capsule capsule capsule dic TAKE ONE TAKE ONE TAKE ONE Spo rts CAPSULE BY CAPSULE BY CAPSULE BY Medicin MOUTH TWICE MOUTH TWICE MOUTH e DAILY DAILY TWICE DAILY promethazin promethazin No promethazi Marli e-DM 6.25 e-DM 6.25 ne-DM 6.25 [facility] mg-15 mg/5 mg-15 mg/5 mg-15 mg/5 dic mL oral mL oral mL oral Sports syrup syrup syrup Medicin e rosuvastati rosuvastati No rosuvastat Marli n 20 mg n 20 mg in 20 mg [facility] pe tablet TAKE tablet TAKE tablet dic 1 TABLET BY 1 TABLET BY TAKE 1 Sports MOUTH DAILY MOUTH DAILY TABLET BY Medicin MOUTH e DAILY tamsulosin tamsulosin No tamsulosin Marli 0.4 mg 0.4 mg 0.4 mg [facility] capsule capsule capsule dic Sports Medicin e tramadol 50 tramadol 50 No tramadol Marli mg tablet mg tablet 50 mg [facility] TAKE 1 TAKE 1 tablet dic TABLET BY TABLET BY TAKE 1 Spo rts MOUTH TWICE MOUTH TWICE TABLET BY Medicin DAILY DAILY MOUTH e NEEDED PAIN NEEDED PAIN TWICE DAILY NEEDED PAIN acetaminoph acetaminoph No acetaminop Marli en 300 en 300 hen 300 [facility] mg-codeine mg-codeine mg-codeine dic 30 mg 30 mg 30 mg Sports tablet tablet tablet Medicin e albuterol albuterol No albuterol [facility] sulfate HFA sulfate HFA sulfate [facility] 90 90 HFA 90 dic mcg/actuati mcg/actuati mcg/actuat Sports on aerosol on aerosol ion Med icin inhaler inhaler aerosol e inhaler amlodipine amlodipine No amlodipine Marli 5 mg tablet 5 mg tablet 5 mg [facility] TAKE 1 TAKE 1 tablet dic TABLET BY TABLET BY TAKE 1 Spo rts MOUTH EVERY MOUTH EVERY TABLET BY Medicin MORNING MORNING MOUTH e EVERY MORNING amoxicillin amoxicillin No amoxicilli Marli 500 mg 500 mg n 500 mg [facility] capsule capsule capsule dic TAKE 4 TAKE 4 TAKE 4 Sports CAPSULES BY CAPSULES BY CAPSULES Medicin MOUTH I MOUTH I BY MOUTH I e HOUR PRIOR HOUR PRIOR HOUR PRIOR TO DENTAL TO DENTAL TO DENTAL APPOINTMENT APPOINTMENT APPOINTMEN T [place] Thyroid 60 Thyroid 60 Thyroid 60 [facility] mg tablet mg tablet mg tablet dic TAKE 1 TAKE 1 TAKE 1 Sports TABLET BY TABLET BY TABLET BY Medicin MOUTH DAILY MOUTH DAILY MOUTH e DAILY azithromyci azithromyci No azithromyc Marli n 250 mg n 250 mg in 250 mg Or [facility] tablet tablet tablet dic Sports Medicin e benzonatate benzonatate No benzonatat Marli 100 mg 100 mg e 100 mg [facility] capsule capsule capsule dic Sports Medicin e cefuroxime cefuroxime No cefuroxime Marli axetil 500 axetil 500 axetil 500 [facility] mg tablet mg tablet mg tablet dic Sports Medicin e ciclopirox ciclopirox No ciclopirox Mar[facility] 8 % topical 8 % topical 8 % [facility] solution solution topical dic solution Sports Medicin e furosemide furosemide No furosemide [facility] 40 mg 40 mg 40 mg [facility] tablet TAKE tablet TAKE tablet dic 1 TABLET BY 1 TABLET BY TAKE 1 Sports MOUTH 2 MOUTH 2 TABLET BY Medi bob TIMES EVERY TIMES EVERY MOUTH 2 e WEEK WEEK TIMES EVERY WEEK Guaiatussin Guaiatussin No Guaiatussi [facility]li AC 10 AC 10 n AC 10 [facility] mg-100 mg/5 mg-100 mg/5 mg-100 dic mL oral mL oral mg/5 mL [facility] liquid TAKE liquid TAKE oral M edicin 8 ML BY 8 ML BY liquid e MOUTH EVERY MOUTH EVERY TAKE 8 ML 6 HOURS 6 HOURS BY MOUTH NEEDED FOR NEEDED FOR EVERY 6 COUGH COUGH HOURS NEEDED FOR COUGH hydrocodone hydrocodone No hydrocodon [facility] 5 5 e 5 [facility] mg-acetamin mg-acetamin mg-acetami dic ophen 325 ophen 325 nophen 325 [facility] mg tablet mg tablet mg tablet Medicin TAKE 1 TAKE 1 TAKE 1 e TABLET BY TABLET BY TABLET BY MOUTH EVERY MOUTH EVERY MOUTH 4 HOURS 4 HOURS EVERY 4 NEEDED FOR NEEDED FOR HOURS PAIN PAIN NEEDED FOR PAIN hydroxyzine hydroxyzine No hydroxyzin [facility] HCl 25 mg HCl 25 mg e HCl 25 [facility] tablet TAKE tablet TAKE mg tablet dic 1 TABLET BY 1 TABLET BY TAKE 1 Sports MOUTH TWICE MOUTH TWICE TABLET BY Medicin DAILY DAILY MOUTH e NEEDED NEEDED TWICE DAILY NEEDED latanoprost latanoprost No latanopros Marli 0.005 % eye 0.005 % eye t 0.005 % [facility] drops drops eye drops dic INSTILL 1 INSTILL 1 INSTILL 1 Sports DROP INTO DROP INTO DROP INTO Medicin BOTH EYES BOTH EYES BOTH EYES e AT BEDTIME AT BEDTIME AT BEDTIME levobunolol levobunolol No levobunolo Marli 0.5 % eye 0.5 % eye l 0.5 % [facility] drops drops eye drops dic INSTILL 1 INSTILL 1 INSTILL 1 Sports DROP IN DROP IN DROP IN Medici n BOTH EYES BOTH EYES BOTH EYES e EVERY 12 EVERY 12 EVERY 12 HOURS HOURS HOURS levofloxaci levofloxaci No levofloxac Marli n 250 mg n 250 mg in 250 mg [facility] tablet TAKE tablet TAKE tablet dic 1 TABLET BY 1 TABLET BY TAKE 1 Sports MOUTH EVERY MOUTH EVERY TABLET BY Medicin DAY FOR 14 DAY FOR 14 MOUTH e DAYS DAYS EVERY DAY FOR 14 DAYS metoprolol metoprolol No metoprolol Marli succinate succinate succinate [facility] ER 25 mg ER 25 mg ER 25 mg dic tablet,exte tablet,exte tablet,ext Sports nded nded ended Medicin release 24 release 24 release 24 e hr TAKE 1 hr TAKE 1 hr TAKE 1 TABLET BY TABLET BY TABLET BY MOUTH EVERY MOUTH EVERY MOUTH DAY DAY EVERY DAY omeprazole omeprazole No omeprazole [facility]li 20 mg 20 mg 20 mg [facility] capsule,del capsule,del capsule,de dic ayed ayed layed Sports release release release Medici n TAKE 1 TAKE 1 TAKE 1 e CAPSULE BY CAPSULE BY CAPSULE BY MOUTH EVERY MOUTH EVERY MOUTH DAY DAY EVERY DAY ondansetron ondansetron No ondansetro Marli 4 mg 4 mg n 4 mg [facility] disintegrat disintegrat disintegra dic ing tablet ing tablet ting Spo rts tablet Medicin e ondansetron ondansetron No ondansetro Marli HCl 8 mg HCl 8 mg n HCl 8 mg [facility] tablet TAKE tablet TAKE tablet dic 1 TABLET BY 1 TABLET BY TAKE 1 Sports MOUTH EVERY MOUTH EVERY TABLET BY Medicin 8 HOURS 8 HOURS MOUTH e NEEDED FOR NEEDED FOR EVERY 8 NAUSEA OR NAUSEA OR HOURS VOMITING VOMITING NEEDED FOR NAUSEA OR VOMITING pravastatin pravastatin No pravastati Marli 40 mg 40 mg n 40 mg [facility] tablet RX tablet RX tablet RX dic by other MD by other MD by other Sports MD Medicin e prednisone prednisone No prednisone Maril 10 mg 10 mg 10 mg [facility] tablet tablet tablet dic PLEASE SEE PLEASE SEE PLEASE SEE Sports ATTACHED ATTACHED ATTACHED Med icin FOR FOR FOR e DETAILED DETAILED DETAILED DIRECTIONS DIRECTIONS DIRECTIONS pregabalin pregabalin No pregabalin Marli 50 mg 50 mg 50 mg [facility] capsule capsule capsule dic TAKE ONE TAKE ONE TAKE ONE Spo rts CAPSULE BY CAPSULE BY CAPSULE BY Medicin MOUTH TWICE MOUTH TWICE MOUTH e DAILY DAILY TWICE DAILY promethazin promethazin No promethazi Marli e-DM 6.25 e-DM 6.25 ne-DM 6.25 [facility] mg-15 mg/5 mg-15 mg/5 mg-15 mg/5 dic mL oral mL oral mL oral Sports syrup syrup syrup Medicin e rosuvastati rosuvastati No rosuvastat Marli n 20 mg n 20 mg in 20 mg [facility] pe tablet TAKE tablet TAKE tablet dic 1 TABLET BY 1 TABLET BY TAKE 1 Sports MOUTH DAILY MOUTH DAILY TABLET BY Medicin MOUTH e DAILY tamsulosin tamsulosin No tamsulosin Marli 0.4 mg 0.4 mg 0.4 mg [facility] capsule capsule capsule dic Sports Medicin e tramadol 50 tramadol 50 No tramadol [facility]li mg tablet mg tablet 50 mg [facility] TAKE 1 TAKE 1 tablet dic TABLET BY TABLET BY TAKE 1 Spo rts MOUTH TWICE MOUTH TWICE TABLET BY Medicin DAILY DAILY MOUTH e NEEDED PAIN NEEDED PAIN TWICE DAILY NEEDED PAIN acetaminoph acetaminoph No acetaminop Marli en 300 en 300 hen 300 [facility] mg-codeine mg-codeine mg-codeine dic 30 mg 30 mg 30 mg Sports tablet tablet tablet Medicin e albuterol albuterol No albuterol [facility] sulfate HFA sulfate HFA sulfate [facility] 90 90 HFA 90 dic mcg/actuati mcg/actuati mcg/actuat Sports on aerosol on aerosol ion Med icin inhaler inhaler aerosol e inhaler amlodipine amlodipine No amlodipine Marli 5 mg tablet 5 mg tablet 5 mg [facility] tablet dic Sports Medicin e amoxicillin amoxicillin No amoxicilli Marli 500 mg 500 mg n 500 mg [facility] capsule capsule capsule dic TAKE 4 TAKE 4 TAKE 4 Sports CAPSULES BY CAPSULES BY CAPSULES Medicin MOUTH I MOUTH I BY MOUTH I e HOUR PRIOR HOUR PRIOR HOUR PRIOR TO DENTAL TO DENTAL TO DENTAL APPOINTMENT APPOINTMENT APPOINTMEN T [place] Thyroid 60 Thyroid 60 Thyroid 60 [facility] mg tablet mg tablet mg tablet dic RX by other RX by other RX by Sports MD [facility] other Medicin e azithromyci azithromyci No azithromyc Marli n 250 mg n 250 mg in 250 mg Or [facility]ope tablet tablet tablet dic Sports Medicin e benzonatate benzonatate No benzonatat Marli 100 mg 100 mg e 100 mg [facility] capsule capsule capsule dic Sports Medicin e cefuroxime cefuroxime No cefuroxime Marli axetil 500 axetil 500 axetil 500 [facility] mg tablet mg tablet mg tablet dic Sports Medicin e Guaiatussin Guaiatussin No Guaiatussi Marli AC 10 AC 10 n AC 10 [facility] mg-100 mg/5 mg-100 mg/5 mg-100 dic mL oral mL oral mg/5 mL [facility] liquid TAKE liquid TAKE oral M edicin 8 ML BY 8 ML BY liquid e MOUTH EVERY MOUTH EVERY TAKE 8 ML 6 HOURS 6 HOURS BY MOUTH NEEDED FOR NEEDED FOR EVERY 6 COUGH COUGH HOURS NEEDED FOR COUGH hydroxyzine hydroxyzine No hydroxyzin Marli HCl 25 mg HCl 25 mg e HCl 25 [facility] tablet TAKE tablet TAKE mg tablet dic 1 TABLET BY 1 TABLET BY TAKE 1 Sports MOUTH TWICE MOUTH TWICE TABLET BY Medicin DAILY DAILY MOUTH e NEEDED NEEDED TWICE DAILY NEEDED latanoprost latanoprost No latanopros Marli 0.005 % eye 0.005 % eye t 0.005 % [facility] drops drops eye drops dic INSTILL 1 INSTILL 1 INSTILL 1 Sports DROP INTO DROP INTO DROP INTO Medicin BOTH EYES BOTH EYES BOTH EYES e AT BEDTIME AT BEDTIME AT BEDTIME levobunolol levobunolol No levobunolo Marli 0.5 % eye 0.5 % eye l 0.5 % [facility] drops drops eye drops dic INSTILL 1 INSTILL 1 INSTILL 1 Sports DROP IN DROP IN DROP IN Medici n BOTH EYES BOTH EYES BOTH EYES e EVERY 12 EVERY 12 EVERY 12 HOURS HOURS HOURS levofloxaci levofloxaci No levofloxac Malri n 250 mg n 250 mg in 250 mg Or [facility] tablet TAKE tablet TAKE tablet dic 1 TABLET BY 1 TABLET BY TAKE 1 Sports MOUTH EVERY MOUTH EVERY TABLET BY Medicin DAY FOR 14 DAY FOR 14 MOUTH e DAYS DAYS EVERY DAY FOR 14 DAYS omeprazole omeprazole No omeprazole [facility]li 20 mg 20 mg 20 mg [facility] capsule,del capsule,del capsule,de dic ayed ayed layed Sports release release release Medici n TAKE 1 TAKE 1 TAKE 1 e CAPSULE BY CAPSULE BY CAPSULE BY MOUTH EVERY MOUTH EVERY MOUTH DAY DAY EVERY DAY ondansetron ondansetron No ondansetro Marli 4 mg 4 mg n 4 mg [facility] disintegrat disintegrat disintegra dic ing tablet ing tablet ting Spo rts tablet Medicin e pravastatin pravastatin No pravastati Marli 40 mg 40 mg n 40 mg [facility] tablet RX tablet RX tablet RX dic by other MD by other MD by other Sports MD Medicin e prednisone prednisone No prednisone Marli 10 mg 10 mg 10 mg [facility] tablet tablet tablet dic PLEASE SEE PLEASE SEE PLEASE SEE Sports ATTACHED ATTACHED ATTACHED Med icin FOR FOR FOR e DETAILED DETAILED DETAILED DIRECTIONS DIRECTIONS DIRECTIONS pregabalin pregabalin No pregabalin Marli 50 mg 50 mg 50 mg [facility] capsule capsule capsule dic TAKE ONE TAKE ONE TAKE ONE Spo rts CAPSULE BY CAPSULE BY CAPSULE BY Medicin MOUTH TWICE MOUTH TWICE MOUTH e DAILY DAILY TWICE DAILY promethazin promethazin No promethazi Marli e-DM 6.25 e-DM 6.25 ne-DM 6.25 [facility] mg-15 mg/5 mg-15 mg/5 mg-15 mg/5 dic mL oral mL oral mL oral [facility] syrup syrup syrup Medicin e rosuvastati rosuvastati No rosuvastat Marli n 20 mg n 20 mg in 20 mg [facility] pe tablet TAKE tablet TAKE tablet dic 1 TABLET BY 1 TABLET BY TAKE 1 Sports MOUTH DAILY MOUTH DAILY TABLET BY Medicin MOUTH e DAILY tamsulosin tamsulosin No tamsulosin Marli 0.4 mg 0.4 mg 0.4 mg [facility] capsule capsule capsule dic Sports Medicin e tramadol 50 tramadol 50 No tramadol Marli mg tablet mg tablet 50 mg [facility] TAKE 1 TAKE 1 tablet dic TABLET BY TABLET BY TAKE 1 Spo rts MOUTH TWICE MOUTH TWICE TABLET BY Medicin DAILY DAILY MOUTH e NEEDED PAIN NEEDED PAIN TWICE DAILY NEEDED PAIN acetaminoph acetaminoph No acetaminop Marli en 300 en 300 hen 300 [facility] mg-codeine mg-codeine mg-codeine dic 30 mg 30 mg 30 mg Sports tablet tablet tablet Medicin e albuterol albuterol No albuterol Marli sulfate HFA sulfate HFA sulfate [facility] 90 90 HFA 90 dic mcg/actuati mcg/actuati mcg/actuat Sports on aerosol on aerosol ion Med icin inhaler inhaler aerosol e inhaler amlodipine amlodipine No amlodipine Marli 5 mg tablet 5 mg tablet 5 mg [facility] TAKE 1 TAKE 1 tablet dic TABLET BY TABLET BY TAKE 1 Spo rts MOUTH EVERY MOUTH EVERY TABLET BY Medicin MORNING MORNING MOUTH e EVERY MORNING amoxicillin amoxicillin No amoxicilli Marli 500 mg 500 mg n 500 mg [facility] capsule capsule capsule dic TAKE 4 TAKE 4 TAKE 4 Sports CAPSULES BY CAPSULES BY CAPSULES Medicin MOUTH I MOUTH I BY MOUTH I e HOUR PRIOR HOUR PRIOR HOUR PRIOR TO DENTAL TO DENTAL TO DENTAL APPOINTMENT APPOINTMENT APPOINTMEN T [place] Thyroid 60 Thyroid 60 Thyroid 60 [facility] mg tablet mg tablet mg tablet dic TAKE 1 TAKE 1 TAKE 1 Sports TABLET BY TABLET BY TABLET BY Medicin MOUTH DAILY MOUTH DAILY MOUTH e DAILY azithromyci azithromyci No azithromyc Marli n 250 mg n 250 mg in 250 mg Or [facility] tablet tablet tablet dic Sports Medicin e benzonatate benzonatate No benzonatat Marli 100 mg 100 mg e 100 mg [facility] capsule capsule capsule dic Sports Medicin e cefuroxime cefuroxime No cefuroxime Marli axetil 500 axetil 500 axetil 500 [facility] mg tablet mg tablet mg tablet dic Sports Medicin e Guaiatussin Guaiatussin No Guaiatussi Marli AC 10 AC 10 n AC 10 [facility] mg-100 mg/5 mg-100 mg/5 mg-100 dic mL oral mL oral mg/5 mL [facility] liquid TAKE liquid TAKE oral M edicin 8 ML BY 8 ML BY liquid e MOUTH EVERY MOUTH EVERY TAKE 8 ML 6 HOURS 6 HOURS BY MOUTH NEEDED FOR NEEDED FOR EVERY 6 COUGH COUGH HOURS NEEDED FOR COUGH hydroxyzine hydroxyzine No hydroxyzin Marli HCl 25 mg HCl 25 mg e HCl 25 [facility] tablet TAKE tablet TAKE mg tablet dic 1 TABLET BY 1 TABLET BY TAKE 1 Sports MOUTH TWICE MOUTH TWICE TABLET BY Medicin DAILY DAILY MOUTH e NEEDED NEEDED TWICE DAILY NEEDED latanoprost latanoprost No latanopros Marli 0.005 % eye 0.005 % eye t 0.005 % [facility] drops drops eye drops dic INSTILL 1 INSTILL 1 INSTILL 1 Sports DROP INTO DROP INTO DROP INTO Medicin BOTH EYES BOTH EYES BOTH EYES e AT BEDTIME AT BEDTIME AT BEDTIME levobunolol levobunolol No levobunolo Marli 0.5 % eye 0.5 % eye l 0.5 % [facility] drops drops eye drops dic INSTILL 1 INSTILL 1 INSTILL 1 Sports DROP IN DROP IN DROP IN Medici n BOTH EYES BOTH EYES BOTH EYES e EVERY 12 EVERY 12 EVERY 12 HOURS HOURS HOURS levofloxaci levofloxaci No levofloxac Marli n 250 mg n 250 mg in 250 mg Or [facility] tablet TAKE tablet TAKE tablet dic 1 TABLET BY 1 TABLET BY TAKE 1 Sports MOUTH EVERY MOUTH EVERY TABLET BY Medicin DAY FOR 14 DAY FOR 14 MOUTH e DAYS DAYS EVERY DAY FOR 14 DAYS omeprazole omeprazole No omeprazole Marli 20 mg 20 mg 20 mg [facility] capsule,del capsule,del capsule,de dic ayed ayed layed Sports release release release Medici n TAKE 1 TAKE 1 TAKE 1 e CAPSULE BY CAPSULE BY CAPSULE BY MOUTH EVERY MOUTH EVERY MOUTH DAY DAY EVERY DAY ondansetron ondansetron No ondansetro Marli 4 mg 4 mg n 4 mg [facility] disintegrat disintegrat disintegra dic ing tablet ing tablet ting Spo rts tablet Medicin e pravastatin pravastatin No pravastati Marli 40 mg 40 mg n 40 mg [facility] tablet RX tablet RX tablet RX dic by other MD by other MD by other Sports MD Medicin e prednisone prednisone No prednisone Marli 10 mg 10 mg 10 mg [facility] tablet tablet tablet dic PLEASE SEE PLEASE SEE PLEASE SEE Sports ATTACHED ATTACHED ATTACHED Med icin FOR FOR FOR e DETAILED DETAILED DETAILED DIRECTIONS DIRECTIONS DIRECTIONS pregabalin pregabalin No pregabalin Marli 50 mg 50 mg 50 mg [facility] capsule capsule capsule dic TAKE ONE TAKE ONE TAKE ONE Spo rts CAPSULE BY CAPSULE BY CAPSULE BY Medicin MOUTH TWICE MOUTH TWICE MOUTH e DAILY DAILY TWICE DAILY promethazin promethazin No promethazi Marli e-DM 6.25 e-DM 6.25 ne-DM 6.25 [facility] mg-15 mg/5 mg-15 mg/5 mg-15 mg/5 dic mL oral mL oral mL oral [facility] syrup syrup syrup Medicin e rosuvastati rosuvastati No rosuvastat Marli n 20 mg n 20 mg in 20 mg [facility] pe tablet TAKE tablet TAKE tablet dic 1 TABLET BY 1 TABLET BY TAKE 1 Sports MOUTH DAILY MOUTH DAILY TABLET BY Medicin MOUTH e DAILY tamsulosin tamsulosin No tamsulosin Marli 0.4 mg 0.4 mg 0.4 mg [facility] capsule capsule capsule dic Sports Medicin e tramadol 50 tramadol 50 No tramadol Marli mg tablet mg tablet 50 mg [facility] TAKE 1 TAKE 1 tablet dic TABLET BY TABLET BY TAKE 1 Spo rts MOUTH TWICE MOUTH TWICE TABLET BY Medicin DAILY DAILY MOUTH e NEEDED PAIN NEEDED PAIN TWICE DAILY NEEDED PAIN acetaminoph acetaminoph No acetaminop Marli en 300 en 300 hen 300 [facility] mg-codeine mg-codeine mg-codeine dic 30 mg 30 mg 30 mg Sports tablet tablet tablet Medicin e Vital Signs Vital Name Observation Time Observation Value Comments Source Systolic (mm Hg) 2023-02-27 15:22:00 [facility] Diastolic (mm Hg) 2023-02-27 15:22:00 [facility] cira Mcmullen Heart Rate 2023-02-27 15:22:00 [facility] 2023-02-27 15:22:00 5 [ft_i] [facility] Weight 2023-02-27 15:22:00 [facility] BMI Calculated 2023-02-27 15:22:00 [facility] Systolic (mm Hg) 2022-08-29 14:57:00 [facility] [place] Diastolic (mm Hg) 2022-08-29 14:57:00 [facility] Heart Rate 2022-08-29 14:57:00 [facility] Height 2022-08-29 14:57:00 5 [ft_i] [facility] Weight 2022-08-29 14:57:00 [facility] BMI Calculated 2022-08-29 14:57:00 [facility] Systolic (mm Hg) 2022-05-31 13:31:00 [facility] Diastolic (mm Hg) 2022-05-31 13:31:00 [facility] Heart Rate 2022-05-31 13:31:00 [facility] Respitory Rate 2022-05-31 13:31:00 [facility] [place] Height 2022-05-31 13:31:00 154.94 cm [facility] Weight 2022-05-31 13:31:00 [facility] BMI Calculated 2022-05-31 13:31:00 [facility] Systolic (mm Hg) 2022-04-26 19:18:00 [facility] [place] Diastolic (mm Hg) 2022-04-26 19:18:00 [facility] Heart Rate 2022-04-26 19:18:00 [facility] Respitory Rate 2022-04-26 19:18:00 [facility] Height 2022-04-26 19:18:00 154.94 cm [facility] Weight 2022-04-26 19:18:00 [facility] BMI Calculated 2022-04-26 19:18:00 [facility] Respitory Rate 2015-05-20 01:03:00 [facility] Systolic (mm Hg) 2015-05-20 01:03:00 Louis rial [facility] Diastolic (mm Hg) 2015-05-20 01:03:00 [facility] BMI Calculated 2015-05-19 22:42:00 [facility] Weight 2015-05-19 22:42:00 [facility] Height 2015-05-19 22:42:00 162.56 cm [facility] Systolic (mm Hg) 2015-05-19 22:42:00 Louis [facility] [place] Diastolic (mm Hg) 2015-05-19 22:42:00 [facility] [place] Respitory Rate 2015-05-19 22:42:00 [facility] Heart Rate 2015-05-19 22:42:00 [facility] Heart Rate 2011-10-10 14:00:00 [facility] Temperature Oral (F) 2011-10-10 14:00:00 97.7 F [facility] Diastolic (mm Hg) 2011-10-10 14:00:00 [facility] Systolic (mm Hg) 2011-10-10 14:00:00 Louis [facility] [place] Respitory Rate 2011-10-10 14:00:00 [facility] Diastolic (mm Hg) 2011-10-10 09:16:00 [facility] [place] Systolic (mm Hg) 2011-10-10 09:16:00 [facility] [place] Temperature Oral (F) 2011-10-10 09:16:00 97.7 F [facility] Heart Rate 2011-10-10 09:16:00 [facility] Respitory Rate 2011-10-10 09:16:00 [facility] Systolic (mm Hg) 2011-10-10 06:26:00 Louis rial [facility] Diastolic (mm Hg) 2011-10-10 06:26:00 [facility] [place] Temperature Oral (F) 2011-10-10 06:26:00 98.3 F [facility] Respitory Rate 2011-10-10 06:26:00 [facility] Heart Rate 2011-10-10 06:26:00 [facility] Weight 2011-10-07 23:04:00 [facility] Height 2011-10-07 23:04:00 160.02 cm [facility] Weight 2011-10-03 00:12:00 [facility] Height 2011-10-03 00:12:00 161.29 cm [facility] Procedures Procedure Date / Time Performing Clinician Source Performed XR, foot, 2 view 2022-09-11 [facility] 2 view 2022-08-06 00:00:00 [facility] Caes[facility] Eye Surgery [facility] Foot Surgery [facility] Hysterectomy [facility] Knee Replacement [facility] Shoulder Surgery [facility] Tonsillectomy [facility] Neurectomy of intrinsic [facility] muscle of foot Hammer toe operation [facility] Arthroscopy of [facility] knee<sup>1</sup> Tonsillectomy [facility] Shoulder [facility] repair<sup>3</sup> Hysterectomy<sup>2</sup> [facility]oria armin [place] section [facility] Plan of Care Planned Activity Planned Date Details Comments Source Instructions [facility] Encounters Start End Encounter Admission Attending Care Care Encounter Source Date/Time Date/Time Type Type Clinicians Facility Department ID 2023-02-27 2023-02-28 Outpatient MHIE MNA [id number] [facility] 15:15:00 04:59:59 Neurology 03 armin [facility] 2023-02-27 2023-02-27 Outpatient SOLO GerardoMISCHER MISCHER [id number] 10:15:00 23:59:59 Jaime Jamilah Castaneda 2023-02-27 2023-02-27 Outpatient MHIE MHIE [id number] [facility] 10:15:00 10:15:00 03 armin Mcmullen 2022-12-17 2022-12-17 Tim Vera [facility] [place] - [place] [id number] Marli 00:00:00 00:00:00 Ruthie Gonsalez MD: [id number] FOG_Ofc dic [facility] [place] [place] [address] , Ph. [phone] 2022-09-11 2022-09-11 Outpatient FOG_Sunshine_ AOSM AOSM [id number] Marli 00:00:00 00:00:00 Harlan [id number] [facility] pe [facility] 2022-09-11 2022-09-11 Outpatient FOG_Susanae_ AOSM AOSM [id number] Marli 00:00:00 00:00:00 Harlan [id number] [facility] 2022-09-11 2022-09-11 Outpatient FOG_Bloome_ AOSM AOSM [id number] Marli 00:00:00 00:00:00 Harlan [id number] [facility] 2022-09-11 2022-09-11 Outpatient FOG_Bloome_ AOSM AOSM [id number] Marli 00:00:00 00:00:00 Harlan [id number] Orth[facility] pe [facility] 2022-09-11 2022-09-11 Tim Vera [place] [place] - [place] [id number] Marli 00:00:00 00:00:00 Ruthie Gonsalez MD: [id number] FOG_Ofc dic [facility] [place], [place] [address] , Ph. [phone] 2022-09-10 2022-09-10 Outpatient FOG_Bloome_ AOSM AOSM [id number] Marli 00:00:00 00:00:00 Harlan [id number] [facility] pe [facility] 2022-08-29 2022-08-30 Outpatient nullFlavo MNA [id number] Memoria 14:30:00 04:59:59 r Neurology 02 armin Mcmullen 2022-08-29 2022-08-29 Outpatient JALYN GerardoMISCHBREANNA [id number] 09:30:00 23:59:59 Jaime 02 Leonel 2022-08-29 2022-08-29 Outpatient MHIE MHIE [id number] [facility] 09:30:00 09:30:00 02 armin Mcmullen 2022-08-29 2022-08-29 Outpatient MHIE MHIE [id number] [facility] 09:30:00 09:30:00 02 armin Mcmullen 2022-08-26 2022-08-26 Outpatient SYDNEY [place] [id number] [facility] 06:57:00 06:57:00 [facility] 2022-08-26 2022-08-26 Outpatient FOG_Bloome_ AOSM AOSM [id number] Marli 00:00:00 00:00:00 Harlan [id number] [facility] pe [facility] 2022-08-26 2022-08-26 Tim Vera [place] - [place] [id number] Marli 00:00:00 00:00:00 Ruthie Gonsalez MD: [id number] [facility] [place] [facility] [place] [address] , Ph. [phone] 2022-08-20 2022-08-20 Outpatient FOG_Bloome_ AOSM AOSM [id number] Marli 00:00:00 00:00:00 Harlan [id number] [facility] pe [facility] 2022-08-13 2022-08-13 Outpatient FOG_Bloome_ AOSM AOSM [id number] Marli 00:00:00 00:00:00 Harlan [id number] Orth[facility] pe dic [facility] 2022-08-06 2022-08-06 Outpatient FOG_Bloome_ AOSM AOSM [id number] Marli 00:00:00 00:00:00 Harlan [id number] Orth[facility] pe [facility] 2022-08-06 2022-08-06 Tim Vera [place] - [place] [id number] Marli 00:00:00 00:00:00 Ruthie Gonsalez MD: [id number] FOG_Ofc dic [facility] [place] [address] , Ph. [phone] 2022-08-02 2022-08-02 Outpatient FOG_Bloome_ AOSM AOSM [id number] Marli 00:00:00 00:00:00 Harlan [id number] Ortho pe dic [facility] 2022-07-22 2022-07-22 Outpatient FOG_Bloome_ AOSM AOSM [id number] Marli 00:00:00 00:00:00 Harlan [id number] Ortho pe dic [facility] Medicin e 2022-05-31 2022-06-01 Outpatient nullFlavo MNA [id number] Memoria 13:15:00 04:59:59 r Neurology 01 l Bellcarlita Mcmullen 2022-05-31 2022-06-01 Outpatient nullFlavo MNA [id number] [facility] 13:15:00 04:59:59 r Neurology 01 l Luz Marina [place] 2022-05-31 2022-05-31 [id number] 08:15:00 23:59:59 Jaime 01 Leonel 2022-05-31 2022-05-31 Outpatient MHIE MHIE [id number] Memoria 08:15:00 08:15:00 01 armin [place] 2022-04-26 2022-04-27 Outpatient nullFlavo MNA [id number] Memoria 19:15:00 04:59:59 r Neurology 00 l Luz Marina [place] 2022-04-26 2022-04-27 Outpatient nullFlavo MNA [id number] Mem[facility] 19:15:00 04:59:59 r Neurology 00 l Luz Marina [place] 2022-04-26 2022-04-26 Outpatient JALYN Gerardo [facility] [id number] 14:15:00 23:59:59 Jaime 00 Leonel 2022-04-26 2022-04-26 Outpatient MHIE MHIE [id number] [facility] 14:15:00 14:15:00 00 armin [place] 2021-01-13 2021-01-13 Outpatient [facility] [id number] [facility] 09:15:00 09:15:00 [facility] 2020-12-16 2020-12-16 Outpatient [facility] [id number] [facility] 08:40:00 08:40:00 [facility] 2015-05-19 2015-05-20 EC nullFlavo [facility] [id number] [facility]oria 22:30:00 01:41:00 Emergency r [place] [facility] 2015-05-19 2015-05-20 EC nullFlavo [facility] [id number] [facility] 22:30:00 01:41:00 Emergency r Benedict [facility] l [facility] 2015-05-19 2015-05-19 Outpatient Edishadivina, 2.16.840. 2.16.840.1 . [id number] 17:30:00 20:41:00 Phil [id number] 01 Bogumil 3.615.0.1 5.0.039 78 5442-12-01 2014-10-11 Outpatient nullFlavo [facility] [id number] [facility] 16:51:00 05:59:00 r Benedict 35 l [facility] 2014-10-10 2014-10-11 Outpatient nullFlavo [facility] [id number] [facility] 16:51:00 05:59:00 r Benedict 35 l [facility] 2014-10-10 2014-10-10 Outpatient Likover, 2.16.840. 2.16.840.1. [id number] 10:51:00 23:59:00 Tomas L [id number] 3.615.0.1 5.0.725 68 0136-12-02 2013-10-11 Outpatient 2.16.840. 2.16.840.1. 3 [id number] Memoria 10:15:00 23:59:00 [id number] l 3.615.0.1 5.0.100 Enrique n 00 Mem[facility] 2013-10-11 2013-10-11 Outpatient nullFlavo [facility] 3 [id number] Memoria 10:15:00 10:15:00 r [facility] 36 [facility] 2013-10-11 2013-10-11 Outpatient nullFlavo [facility] 3 [id number] Memoria 10:15:00 10:15:00 r [facility] 36 [facility] 2012-10-05 2012-10-05 Outpatient nullFlavo [facility] 3 [id number] Memoria 10:50:00 10:50:00 r [facility] 31 [facility] 2012-10-05 2012-10-05 Outpatient nullFlavo [facility] 3 [id number] Memoria 10:50:00 10:50:00 r [facility] 31 [facility] 2011-10-24 2011-10-24 Outpatient nullFlavo MH [facility] 3 [id number] Memoria 13:38:00 13:38:00 r [facility] 49 [facility] 2011-10-24 2011-10-24 Outpatient nullFlavo [facility] 3 [id number] Memoria 13:38:00 13:38:00 r [facility] 49 [facility] 2011-10-07 2011-10-10 Inpatient nullFlavo [facility] 39 [id number] Memoria 11:03:00 12:15:00 [place] 2011-10-07 2011-10-10 Inpatient nullFlavo [facility] 39 [id number] Memoria 11:03:00 12:15:00 [place] 2011-08-27 2011-08-27 Outpatient nullFlavo [facility] 3 [id number] Memoria 14:20:00 14:21:00 r [facility] 91 [facility] 2011-08-27 2011-08-27 Outpatient nullFlavo [facility] 3 [id number] Memoria 14:20:00 14:21:00 r [facility] 91 [facility] Results Test Description Test Time Test Comments Results Result Comments Source HEMATOLOGY 2015-05-19 23:27:00 Test Item Value Reference Range Interpretation Comme nts RBC (test code = RBC) 3.89 4.20-5.40 [facility]24[facility]58[facility]79 23:27:00 Test Item Value Reference Range Interpretation Comments WBC (test code = WBC) 12.6 3.7-10.4 [facility]odpyxuCJDDXEIIHJ8975-39-71 23:27:00 Test Item Value Reference Range Interpretation Comments RDW (test code = RDW) 14.0 11.5-14.5 [facility]OfdwfkkWRSCRXFSVH8922-95-14 23:27:00 Test Item Value Reference Range Interpretation Comments MCHC (test code = MCHC) 32.7 32.0-36.0 [facility]jzklklROEACUTIVT7175-45-12 23:27:00 Test Item Value Reference Range Interpretation Comments MCH (test code = MCH) 31.0 pg 27.0-31.0 [facility]ZcligujGTQOICVTAE3898-98-90 23:27:00 Test Item Value Reference Range Interpretation Comments Hct (test code = Hct) 37.0 36.0-48.0 [facility]BvfsftfIPRWRHVSLI6036-32-27 23:27:00 Test Item Value Reference Range Interpretation Comments MCV (test code = MCV) 94.9 80.0-98.0 [facility] NortheastLpanzzaDSRUEFPKXQ9370-95-53 23:27:00 Test Item Value Reference Range Interpretation Comments Hgb (test code = Hgb) 12.1 12.0-16.0 [facility]GwnulbaSNRDPMQDZM3452-33-09 23:27:00 Test Item Value Reference Range Interpretation Comments Platelet (test code = Platelet) 177 133-450 [facility]IbxjgigWJPBHWJDUY0316-03-68 23:27:00 Test Item Value Reference Range Interpretation Comments MPV (test code = MPV) 9.5 7.4-10.4 [facility]IxseythYDBVBUOQSN3838-02-52 23:27:00 Test Item Value Reference Range Interpretation Comments Lymphocytes # (test code = Lymphocytes 2.3 1.0-5.5 #) [facility]XlliohoTPVAOVLIIG2800-94-17 23:27:00 Test Item Value Reference Range Interpretation Comments Segs-Bands # (test code = Segs-Bands #) 9.3 1.5-8.1 [facility]McgfspyJOOMZYKLKC8641-26-72 23:27:00 Test Item Value Reference Range Interpretation Comments Basophils # (test code 0.0 See_Comment [Aut omated message] The = Basophils #) system which generated this result tra nsmitted reference range : <=0.2. The reference r bianka was not used to int erpret this result as normal/abnormal . [facility] NortheastFgkztevEOQIYHQRAV5067-07-68 23:27:00 Test Item Value Reference Range Interpretation Comments Eosinophils (test code = 0.6 See_Comment [A utomated message] The Eosinophils) system which ge nerated this result tra nsmitted reference range : <=4.0. The reference r bianka was not used to int erpret this result as normal/abnormal . [facility] NortheastZnvfhtqBGPZLKZBDX0002-28-37 23:27:00 Test Item Value Reference Range Interpretation Comments Basophils (test code = 0.3 See_Comment [Aut omated message] The Basophils) system which ge nerated this result tra nsmitted reference range : <=1.0. The reference r bianka was not used to int erpret this result as normal/abnormal . [facility] NortheastBatedvxYTCJDOZVUN2320-67-74 23:27:00 Test Item Value Reference Range Interpretation Comments Monocytes (test code = Monocytes) 6.6 2.0-12.0 [facility]QonguvvLMEZRMRCGL0674-74-41 23:27:00 Test Item Value Reference Range Interpretation Comments Eosinophils # (test code 0.1 See_Comment [A utomated message] The = Eosinophils #) system [facility] h generated this result tra nsmitted reference range : <=0.5. The reference r bianka was not used to int erpret this result as normal/abnormal . [facility] NortheastScjdqmaYYKCGVMJEP8296-05-69 23:27:00 Test Item Value Reference Range Interpretation Comments Monocytes # (test code 0.8 See_Comment [Aut omated message] The = Monocytes #) system which generated this result tra nsmitted reference range : <=0.8. The reference r bianka was not used to int erpret this result as normal/abnormal . [facility] NortheastFqaitanBQCYYUKAZX2497-50-53 23:27:00 Test Item Value Reference Range Interpretation Comments Lymphocytes (test code = Lymphocytes) 18.5 20.0-40.0 [facility] NortheastWahvlnvZUZEIBEAHN8081-38-03 23:27:00 Test Item Value Reference Range Interpretation Comments Segs (test code = Segs) 74.0 45.0-75.0 [facility] NortheastEflgmplELVDVJKXCG0012-65-47 23:27:00 Test Item Value Reference Range Interpretation Comments PT (test code = PT) 13.0 s 12.0-14.7 [facility] NortheastVuuoshjXGEWPJAGRY7296-78-99 23:27:00 Test Item Value Reference Range Interpretation Comments INR (test code = INR) 0.98 0.85-1.17 [facility]QtsglrzIUNOAVSUVD7105-32-17 23:27:00 Test Item Value Reference Range Interpretation Comments Hgb (test code = Hgb) 12.1 12.0-16.0 [facility] NortheastCyvbmhtXIBSXWZTZQ6302-85-71 23:27:00 Test Item Value Reference Range Interpretation Comments Platelet (test code = Platelet) 177 133-450 [facility] NortheastPlwcrtoZFKPRXREAY0719-37-11 23:27:00 Test Item Value Reference Range Interpretation Comments MPV (test code = MPV) 9.5 7.4-10.4 [facility] NortheastVpuhuunBAURZWSIMC1827-45-89 23:27:00 Test Item Value Reference Range Interpretation Comments Lymphocytes # (test code = Lymphocytes 2.3 1.0-5.5 #) [facility] NortheastEgjmuuuGUXMAKYPBU4876-64-33 23:27:00 Test Item Value Reference Range Interpretation Comments Segs-Bands # (test code = Segs-Bands #) 9.3 1.5-8.1 [facility] NortheastSiryetqCUPBUEVZGY3382-79-62 23:27:00 Test Item Value Reference Range Interpretation Comments Basophils # (test code 0.0 See_Comment [Aut omated message] The = Basophils #) system which generated this result tra nsmitted reference range : <=0.2. The reference r bianka was not used to int erpret this result as normal/abnormal . [facility] NortheastGnszdznNEQOWGJCJD3466-49-72 23:27:00 Test Item Value Reference Range Interpretation Comments Eosinophils (test code = 0.6 See_Comment [A utomated message] The Eosinophils) system which ge nerated this result tra nsmitted reference range : <=4.0. The reference r bianka was not used to int erpret this result as normal/abnormal . [facility] NortheastUldgkqeWIORYRWLTI1022-22-26 23:27:00 Test Item Value Reference Range Interpretation Comments Basophils (test code = 0.3 See_Comment [Aut omated message] The Basophils) system which ge nerated this result tra nsmitted reference range : <=1.0. The reference r bianka was not used to int erpret this result as normal/abnormal . [facility] NortheastYqdqtfaBWAWVFGGYP9147-09-46 23:27:00 Test Item Value Reference Range Interpretation Comments Monocytes (test code = Monocytes) 6.6 2.0-12.0 [facility] NortheastCplpzusUVPVFYFDWN6758-39-76 23:27:00 Test Item Value Reference Range Interpretation Comments Eosinophils # (test code 0.1 See_Comment [A utomated message] The = Eosinophils #) system wh h generated this result tra nsmitted reference range : <=0.5. The reference r bianka was not used to int erpret this result as normal/abnormal . [facility] NortheastBkgzyluNVKSXJRVFI9786-39-25 23:27:00 Test Item Value Reference Range Interpretation Comments Monocytes # (test code 0.8 See_Comment [Aut omated message] The = Monocytes #) system which generated this result tra nsmitted reference range : <=0.8. The reference r bianka was not used to int erpret this result as normal/abnormal . [facility] NortheastXxramdfKBXNUSBWBF9753-41-89 23:27:00 Test Item Value Reference Range Interpretation Comments Lymphocytes (test code = Lymphocytes) 18.5 20.0-40.0 [facility] NortheastCwpluviBCVVJBJSNL4189-57-21 23:27:00 Test Item Value Reference Range Interpretation Comments Segs (test code = Segs) 74.0 45.0-75.0 [facility] NortheastPvzrtjmPGRGSPIKMZ5232-53-28 23:27:00 Test Item Value Reference Range Interpretation Comments PT (test code = PT) 13.0 s 12.0-14.7 [facility] NortheastPrsqyclHNDNRNFANB0975-61-97 23:27:00 Test Item Value Reference Range Interpretation Comments INR (test code = INR) 0.98 0.85-1.17 [facility] NortheastUfuhjpaPYEXPGTYGS8366-41-53 23:27:00 Test Item Value Reference Range Interpretation Comments RBC (test code = RBC) 3.89 4.20-5.40 [facility] NortheastWoogeueLFTJKXUMDJ3848-15-18 23:27:00 Test Item Value Reference Range Interpretation Comments WBC (test code = WBC) 12.6 3.7-10.4 [facility] NortheastAbfzjogWWFDUISDVM1920-76-67 23:27:00 Test Item Value Reference Range Interpretation Comments RDW (test code = RDW) 14.0 11.5-14.5 [facility] NortheastPclbswrEMYBDCWPHK7413-31-94 23:27:00 Test Item Value Reference Range Interpretation Comments MCHC (test code = MCHC) 32.7 32.0-36.0 [facility] NortheastXrzrxhmLPZRUFVJKM6676-54-26 23:27:00 Test Item Value Reference Range Interpretation Comments MCH (test code = MCH) 31.0 pg 27.0-31.0 [facility] NortheastIlhrlkvWHPBMSAXUJ9826-50-65 23:27:00 Test Item Value Reference Range Interpretation Comments Hct (test code = Hct) 37.0 36.0-48.0 [facility] NortheastXmpupksYLYHESVWBS8021-03-28 23:27:00 Test Item Value Reference Range Interpretation Comments MCV (test code = MCV) 94.9 80.0-98.0 [facility]QsroirqTEWSTWYOB0231-66-38 08:44:00 Test Item Value Reference Range Interpretation Comments Chloride Lvl (test code = Chloride Lvl) 106.0 95-109 N [facility] SoutheastWduvbzwYAOXINGLS2012-10-90 08:44:00 Test Item Value Reference Range Interpretation Comments CO2 (test code = CO2) 29.0 24-32 N [facility] SoutheastOfltdnhSLNKGPBYU5552-16-86 08:44:00 Test Item Value Reference Range Interpretation Comments Calcium Lvl (test code = Calcium Lvl) 7.7 8.5-10.5 L [facility] SoutheastJfstvzsGUTXUPHCJ3356-58-22 08:44:00 Test Item Value Reference Range Interpretation Comments AGAP (test code = AGAP) 9.5 10.0-20.0 L [facility] SoutheastEclyiriFUSKVMWKA3173-84-32 08:44:00 Test Item Value Reference Range Interpretation Comments Sodium Lvl (test code = Sodium Lvl) 141.0 135-145 N [facility] SoutheastDmhffruQHRVNQXYL6328-49-76 08:44:00 Test Item Value Reference Range Interpretation Comments Potassium Lvl (test code = Potassium 3.5 3.5-5.1 N Lvl) [facility] SoutheastEyihmkdVCLAFCDWP2939-35-02 08:44:00 Test Item Value Reference Range Interpretation Comments BUN (test code = BUN) 7.0 7-22 N [facility] SoutheastQsgxemsEKRTZNXEV1696-12-96 08:44:00 Test Item Value Reference Range Interpretation Comments Creatinine Lvl (test code = Creatinine 0.9 0.5-1.4 N Lvl) [facility] SoutheastChgqnitTKUIJNAPP2408-99-88 08:44:00 Test Item Value Reference Range Interpretation Comments Glucose Lvl (test code = Glucose Lvl) 108.0 [facility] SoutheastJshwfvoPPXYEUKPG6533-08-52 08:44:00 Test Item Value Reference Range Interpretation Comments Chloride Lvl (test code = Chloride Lvl) 106.0 95-109 N [facility] SoutheastObfshiwNHLOAGDJE4136-33-47 08:44:00 Test Item Value Reference Range Interpretation Comments CO2 (test code = CO2) 29.0 24-32 N [facility] SoutheastOqjvxxpZJEKZKARH9115-48-82 08:44:00 Test Item Value Reference Range Interpretation Comments Calcium Lvl (test code = Calcium Lvl) 7.7 8.5-10.5 L [facility] SoutheastYdnizuoANQJKNFDO1095-54-60 08:44:00 Test Item Value Reference Range Interpretation Comments AGAP (test code = AGAP) 9.5 10.0-20.0 L [facility] SoutheastYzszastVBAFNMZIJ4691-18-68 08:44:00 Test Item Value Reference Range Interpretation Comments Sodium Lvl (test code = Sodium Lvl) 141.0 135-145 N [facility] SoutheastNxoggpeNMHYBSJKJ1955-08-09 08:44:00 Test Item Value Reference Range Interpretation Comments Potassium Lvl (test code = Potassium 3.5 3.5-5.1 N Lvl) [facility] SoutheastFewjtmnPLFTYFSOA7166-07-14 08:44:00 Test Item Value Reference Range Interpretation Comments BUN (test code = BUN) 7.0 7-22 N [facility] SoutheastRakjhapHLWGPUIGT7055-67-88 08:44:00 Test Item Value Reference Range Interpretation Comments Creatinine Lvl (test code = Creatinine 0.9 0.5-1.4 N Lvl) [facility] SoutheastSjhexahKSWEBDJXZ5091-42-16 08:44:00 Test Item Value Reference Range Interpretation Comments Glucose Lvl (test code = Glucose Lvl) 108.0 [facility] SoutheastCmklyuwOEDRBTRGU7034-30-19 10:10:00 Test Item Value Reference Range Interpretation Comments AGAP (test code = AGAP) 15.5 10.0-20.0 N [facility] SoutheastFwfprnsMQERLNJJF2211-50-83 10:10:00 Test Item Value Reference Range Interpretation Comments Calcium Lvl (test code = Calcium Lvl) 7.8 8.5-10.5 L [facility] SoutheastRqcfljsVJMITWWPZ3007-56-47 10:10:00 Test Item Value Reference Range Interpretation Comments Glucose Lvl (test code = Glucose Lvl) 101.0 [facility] SoutheastBkayqnwIEINOXUUQ7142-82-46 10:10:00 Test Item Value Reference Range Interpretation Comments Chloride Lvl (test code = Chloride Lvl) 106.0 95-109 N [facility] SoutheastMoewxiyYGMHUNYIA2429-24-12 10:10:00 Test Item Value Reference Range Interpretation Comments CO2 (test code = CO2) 26.0 24-32 N [facility] SoutheastEfggkhgUWTDPTNNQ9637-35-40 10:10:00 Test Item Value Reference Range Interpretation Comments Potassium Lvl (test code = Potassium 3.5 3.5-5.1 N Lvl) [facility] SoutheastUiwnpgfPEBIMDOPS1365-73-37 10:10:00 Test Item Value Reference Range Interpretation Comments Creatinine Lvl (test code = Creatinine 0.8 0.5-1.4 N Lvl) [facility] SoutheastJzauxasPAPHRRURA3389-86-84 10:10:00 Test Item Value Reference Range Interpretation Comments Sodium Lvl (test code = Sodium Lvl) 144.0 135-145 N [facility] SoutheastCmawzdcBPMJRIASI2714-21-28 10:10:00 Test Item Value Reference Range Interpretation Comments BUN (test code = BUN) 7.0 7-22 N [facility] NortheastLnbaywgLGDZQHAXHJ5765-28-05 10:10:00 Test Item Value Reference Range Interpretation Comments Hgb (test code = Hgb) 9.0 12.0-16.0 [facility]magzsuEDCAOFBZUK1881-86-34 10:10:00 Test Item Value Reference Range Interpretation Comments Hct (test code = Hct) 26.3 36.0-48.0 L [facility]KnmgvulKIFCXHHCI5682-00-37 10:10:00 Test Item Value Reference Range Interpretation Comments AGAP (test code = AGAP) 15.5 10.0-20.0 N [facility] SoutheastQpmjlstQRNINABWO4961-50-40 10:10:00 Test Item Value Reference Range Interpretation Comments Calcium Lvl (test code = Calcium Lvl) 7.8 8.5-10.5 L [facility] SoutheastPiryfxoZDKUOYYEI1399-47-40 10:10:00 Test Item Value Reference Range Interpretation Comments Glucose Lvl (test code = Glucose Lvl) 101.0 [facility] SoutheastBpmyrimHWKJRULYE3834-86-62 10:10:00 Test Item Value Reference Range Interpretation Comments Chloride Lvl (test code = Chloride Lvl) 106.0 95-109 N [facility] SoutheastWgtzzrcFJOOIAXSB5364-39-60 10:10:00 Test Item Value Reference Range Interpretation Comments CO2 (test code = CO2) 26.0 24-32 N [facility] SoutheastCubmkwdRPITGCQMD8698-58-77 10:10:00 Test Item Value Reference Range Interpretation Comments Potassium Lvl (test code = Potassium 3.5 3.5-5.1 N Lvl) [facility]AgykdokPWUKVNDAB5179-27-58 10:10:00 Test Item Value Reference Range Interpretation Comments Creatinine Lvl (test code = Creatinine 0.8 0.5-1.4 N Lvl) [facility] SoutheastDcqpfhyZIXWNCXKL7237-30-26 10:10:00 Test Item Value Reference Range Interpretation Comments Sodium Lvl (test code = Sodium Lvl) 144.0 135-145 N [facility] SoutheastNamntruOUOSZLTIV1454-18-25 10:10:00 Test Item Value Reference Range Interpretation Comments BUN (test code = BUN) 7.0 7-22 N [facility]ThystoeUDVLEDLPAE4617-28-67 10:10:00 Test Item Value Reference Range Interpretation Comments Hgb (test code = Hgb) 9.0 12.0-16.0 L [facility]YimqepeIYDIERKGBF5613-09-21 10:10:00 Test Item Value Reference Range Interpretation Comments Hct (test code = Hct) 26.3 36.0-48.0 L [facility] SoutheastIndytpcQLWCTHBLN1545-86-07 12:48:00 Test Item Value Reference Range Interpretation Comments Potassium Lvl (test code = Potassium 3.6 3.5-5.1 N Lvl) [facility] SoutheastOyxtvvaCHEUKNSTE7253-65-84 12:48:00 Test Item Value Reference Range Interpretation Comments Chloride Lvl (test code = Chloride Lvl) 107.0 95-109 N [facility] SoutheastNrxhabzOMLLVVNSY9870-14-32 12:48:00 Test Item Value Reference Range Interpretation Comments CO2 (test code = CO2) 28.0 24-32 N [facility] SoutheastQtorqvlJCSPJDSPV6505-99-42 12:48:00 Test Item Value Reference Range Interpretation Comments BUN (test code = BUN) 6.0 7-22 L [facility] SoutheastZgepjjmOVHFWQGWN1383-67-43 12:48:00 Test Item Value Reference Range Interpretation Comments Creatinine Lvl (test code = Creatinine 0.7 0.5-1.4 N Lvl) [facility] SoutheastMusshgmNICPPWRKQ3222-75-49 12:48:00 Test Item Value Reference Range Interpretation Comments Sodium Lvl (test code = Sodium Lvl) 142.0 135-145 N [facility] SoutheastJgmxxflYYQDOJZZY6443-92-20 12:48:00 Test Item Value Reference Range Interpretation Comments AGAP (test code = AGAP) 10.6 10.0-20.0 N [facility] NortheastRwunqsmLGOHVOOMMI3653-17-89 12:48:00 Test Item Value Reference Range Interpretation Comments MPV (test code = MPV) 9.0 7.4-10.4 N [facility]NdhflsgKXUNGAKXHS7376-80-81 12:48:00 Test Item Value Reference Range Interpretation Comments Hct (test code = Hct) 28.9 36.0-48.0 L [facility]SuxfnwjKHWVTXEKDR1264-23-33 12:48:00 Test Item Value Reference Range Interpretation Comments MCH (test code = MCH) 33.4 pg 27.0-31.0 H [facility]MrmnkxbUOEDETONIA2498-47-14 12:48:00 Test Item Value Reference Range Interpretation Comments MCHC (test code = MCHC) 35.0 32.0-36.0 N [facility]UwvdqhcIMALLFVKUT7357-33-03 12:48:00 Test Item Value Reference Range Interpretation Comments RDW (test code = RDW) 13.9 11.5-14.5 N [facility] NortheastZbmlqeiPHZSMDXHKL9350-83-85 12:48:00 Test Item Value Reference Range Interpretation Comments MCV (test code = MCV) 95.2 81.0-99.0 N [facility] NortheastCanjeumKULCJTTFUU4390-85-81 12:48:00 Test Item Value Reference Range Interpretation Comments Platelet (test code = Platelet) 125.0 133-450 L [facility] NortheastWpgmtlkBSMPVBAFTI4680-95-20 12:48:00 Test Item Value Reference Range Interpretation Comments WBC (test code = WBC) 6.1 3.7-10.4 N [facility] NortheastYhmpazbODKYEQFHWM8778-68-02 12:48:00 Test Item Value Reference Range Interpretation Comments Hgb (test code = Hgb) 10.1 12.0-16.0 L [facility] NortheastUpclplpGUZNXOHFZF6413-44-82 12:48:00 Test Item Value Reference Range Interpretation Comments RBC (test code = RBC) 3.03 4.20-5.40 L [facility] NortheastDgcegbcNVSDYWCVOG2660-63-93 12:48:00 Test Item Value Reference Range Interpretation Comments Segs (test code = Segs) 63.1 45.0-75.0 N [facility] NortheastZfzspusHBCOJPLCBL1348-78-91 12:48:00 Test Item Value Reference Range Interpretation Comments Lymphocytes (test code = Lymphocytes) 21.9 20.0-40.0 N [facility]MxqlqdpJVJOIQTTDC6444-10-72 12:48:00 Test Item Value Reference Range Interpretation Comments Monocytes (test code = Monocytes) 14.0 2.0-12.0 H [facility] NortheastKodjckvSIAZUMPYVD3797-03-20 12:48:00 Test Item Value Reference Range Interpretation Comments Eosinophils (test code = 0.6 See_Comment N [A utomated message] The Eosinophils) system which ge nerated this result tra nsmitted reference range : <=4.0. The reference r bianka was not used to int erpret this result as normal/abnormal . [facility]PqymeznRHAGJWNLKM3658-36-91 12:48:00 Test Item Value Reference Range Interpretation Comments Basophils (test code = 0.4 See_Comment N [Aut omated message] The Basophils) system which ge nerated this result tra nsmitted reference range : <=1.0. The reference r bianka was not used to int erpret this result as normal/abnormal . [facility] NortheastHckcvkjWTQAPNNOYD3167-86-80 12:48:00 Test Item Value Reference Range Interpretation Comments Segs-Bands # (test code = Segs-Bands #) 3.8 1.5-8.1 N [facility]PdnowkzTIGXSMQDPG6765-07-71 12:48:00 Test Item Value Reference Range Interpretation Comments Monocytes # (test code 0.9 See_Comment H [Aut omated message] The = Monocytes #) system which generated this result tra nsmitted reference range : <=0.8. The reference r bianka was not used to int erpret this result as normal/abnormal . [facility] NortheastKfqkfbmFVADRKAOZP1340-76-93 12:48:00 Test Item Value Reference Range Interpretation Comments Lymphocytes # (test code = Lymphocytes 1.3 1.0-5.5 N #) [facility]EkqcmkaEDJKUZUCWY1208-20-72 12:48:00 Test Item Value Reference Range Interpretation Comments Eosinophils # (test code 0.0 See_Comment N [A utomated message] The = Eosinophils #) system whic h generated this result tra nsmitted reference range : <=0.5. The reference r bianka was not used to int erpret this result as normal/abnormal . [facility] NortheastTdtzxbfFFQKHLOLTE0289-44-10 12:48:00 Test Item Value Reference Range Interpretation Comments Macrocyte (test code = 1+ *ABN*(10/08/2011 A Macrocyte) 06:48:00) ?? [facility] SoutheastSezwiwkISPICVTFO8930-61-90 12:48:00 Test Item Value Reference Range Interpretation Comments Calcium Lvl (test code = Calcium Lvl) 7.6 8.5-10.5 L [facility] SoutheastHupnalmTAYJXTNXO1555-48-68 12:48:00 Test Item Value Reference Range Interpretation Comments Glucose Lvl (test code = Glucose Lvl) 115.0 [facility] SoutheastBezgmexRQUEDBWSI8098-78-72 12:48:00 Test Item Value Reference Range Interpretation Comments Potassium Lvl (test code = Potassium 3.6 3.5-5.1 N Lvl) [facility] SoutheastTzrrbdcRDBAEALMI3284-66-04 12:48:00 Test Item Value Reference Range Interpretation Comments Chloride Lvl (test code = Chloride Lvl) 107.0 95-109 N [facility] SoutheastJjoutwtEEKKJFTWM1337-37-61 12:48:00 Test Item Value Reference Range Interpretation Comments CO2 (test code = CO2) 28.0 24-32 N [facility] SoutheastCtoxrmvUNXSFMRKG7455-90-53 12:48:00 Test Item Value Reference Range Interpretation Comments BUN (test code = BUN) 6.0 7-22 L [facility] SoutheastFwumgktDRCYBYGLH6886-15-25 12:48:00 Test Item Value Reference Range Interpretation Comments Creatinine Lvl (test code = Creatinine 0.7 0.5-1.4 N Lvl) [facility] SoutheastDokcthsKQHLGJLDC7358-94-07 12:48:00 Test Item Value Reference Range Interpretation Comments Sodium Lvl (test code = Sodium Lvl) 142.0 135-145 N [facility] SoutheastKwalflxIXNDONLIG1605-60-14 12:48:00 Test Item Value Reference Range Interpretation Comments AGAP (test code = AGAP) 10.6 10.0-20.0 N [facility] NortheastLeovxkuRBFYKGLYTK6425-00-50 12:48:00 Test Item Value Reference Range Interpretation Comments MPV (test code = MPV) 9.0 7.4-10.4 N [facility]QsvrbqiBPBXYTWYTT5563-76-41 12:48:00 Test Item Value Reference Range Interpretation Comments Hct (test code = Hct) 28.9 36.0-48.0 L [facility] NortheastOuqvlazYJIJFMSTUE3491-95-66 12:48:00 Test Item Value Reference Range Interpretation Comments MCH (test code = MCH) 33.4 pg 27.0-31.0 H [facility]KjlnndtQBTJJUOVSF9548-91-27 12:48:00 Test Item Value Reference Range Interpretation Comments MCHC (test code = MCHC) 35.0 32.0-36.0 N [facility] NortheastXbszzlzFGUBRXPHJY4150-49-49 12:48:00 Test Item Value Reference Range Interpretation Comments RDW (test code = RDW) 13.9 11.5-14.5 N [facility] NortheastLmfvwcwLFMHRONTEP5908-72-46 12:48:00 Test Item Value Reference Range Interpretation Comments MCV (test code = MCV) 95.2 81.0-99.0 N [facility] NortheastAqmbpwaJMQPZNUBBH3966-59-88 12:48:00 Test Item Value Reference Range Interpretation Comments Platelet (test code = Platelet) 125.0 133-450 L [facility] NortheastZqgetfgDOWYZBERLX8912-62-44 12:48:00 Test Item Value Reference Range Interpretation Comments WBC (test code = WBC) 6.1 3.7-10.4 N [facility] NortheastCdadrfeNGUNZJOFVW4613-17-63 12:48:00 Test Item Value Reference Range Interpretation Comments Hgb (test code = Hgb) 10.1 12.0-16.0 L [facility] NortheastBqzvomxLYHOFZERVA8686-71-19 12:48:00 Test Item Value Reference Range Interpretation Comments RBC (test code = RBC) 3.03 4.20-5.40 L [facility]XderwcfXSMXPULIMJ9808-68-79 12:48:00 Test Item Value Reference Range Interpretation Comments Segs (test code = Segs) 63.1 45.0-75.0 N [facility] NortheastAzmaaepVGLQVLTGNL6855-32-47 12:48:00 Test Item Value Reference Range Interpretation Comments Lymphocytes (test code = Lymphocytes) 21.9 20.0-40.0 N [facility] NortheastYsbuuwgBKSDPZGQPJ3043-97-94 12:48:00 Test Item Value Reference Range Interpretation Comments Monocytes (test code = Monocytes) 14.0 2.0-12.0 H [facility]QnnjxolRCBBCMNMZH6135-42-31 12:48:00 Test Item Value Reference Range Interpretation Comments Eosinophils (test code = 0.6 See_Comment N [A utomated message] The Eosinophils) system which ge nerated this result tra nsmitted reference range : <=4.0. The reference r bianka was not used to int erpret this result as normal/abnormal . [facility]KfqxdgjIDHEZFKMEX6694-00-64 12:48:00 Test Item Value Reference Range Interpretation Comments Basophils (test code = 0.4 See_Comment N [Aut omated message] The Basophils) system which ge nerated this result tra nsmitted reference range : <=1.0. The reference r bianka was not used to int erpret this result as normal/abnormal . [facility]MfujdrjGJITKPFWJL7777-58-14 12:48:00 Test Item Value Reference Range Interpretation Comments Segs-Bands # (test code = Segs-Bands #) 3.8 1.5-8.1 N [facility] NortheastUkhvrmjYZUZFUEHEB9738-90-16 12:48:00 Test Item Value Reference Range Interpretation Comments Monocytes # (test code 0.9 See_Comment H [Aut omated message] The = Monocytes #) system which generated this result tra nsmitted reference range : <=0.8. The reference r bianka was not used to int erpret this result as normal/abnormal . [facility] NortheastJqgtvllSEKOYTKPIK5701-87-63 12:48:00 Test Item Value Reference Range Interpretation Comments Lymphocytes # (test code = Lymphocytes 1.3 1.0-5.5 N #) [facility]QocgtjxPOOCYLZYMN1518-92-86 12:48:00 Test Item Value Reference Range Interpretation Comments Eosinophils # (test code 0.0 See_Comment N [A utomated message] The = Eosinophils #) system whic h generated this result tra nsmitted reference range : <=0.5. The reference r bianka was not used to int erpret this result as normal/abnormal . [facility] NortheastLfibbhlZOUCWGMVLZ4551-07-09 12:48:00 Test Item Value Reference Range Interpretation Comments Macrocyte (test code = 1+ *ABN*(10/08/2011 A Macrocyte) 06:48:00) ?? [facility]QzyztcyMYARKFENX3367-91-94 12:48:00 Test Item Value Reference Range Interpretation Comments Calcium Lvl (test code = Calcium Lvl) 7.6 8.5-10.5 L [facility] SoutheastSmzlaczOZJLPMHZI6498-72-28 12:48:00 Test Item Value Reference Range Interpretation Comments Glucose Lvl (test code = Glucose Lvl) 115.0 [facility] Notes Date/Time Note Provider Source 2022-08-26 10:10:00-00:00 [id number] [place] [address] PATIENT NAME: BLAZE SAMUEL ADMIT DATE: 08/26/22 ACCOUNT NO: [id number] ROOM NO: AGE: 86 REPORT TYPE: OPERATIVE REPORT SEX: F ADMITTING PHYSICIAN: ATTENDING PHYSICIAN:Tim Gonsalez MD OPERATION DATE: 08/26/2022 PREOPERATIVE DIAGNOSES: 1. Left second, third, and fourth metatarsal exo stoses. 2. Left fourth toe deformity. POSTOPERATIVE DIAGNOSES: 1. Left second, third, and fourth metatarsal exo stoses. 2. Left fourth toe deformity. PROCEDURES: 1. Left second, third, and fourth metatarsal exo stectomies. 2. Left toe deformity correction with MTP capsul otomy and tenorrhaphy. SURGEON: Tim Gonsalez M.D. GREENS PICKER: Owen Arciniega M.D. ANESTHESIA: General plus local. BLOOD LOSS: Minimal. SPECIMENS: None. COMPLICATIONS: None. DISPOSITION: The patient was taken to recovery r oom in stable condition, then discharged home with followup. INDICATIONS FOR OPERATION: The patient is an 86- year-old female who has had multiple surgeries to her left foot. She now com plains of pain at the plantar aspect of the central forefoot region as well as a fourth toe deformity. She presents today for the aforementioned procedures that she has become unresponsive to nonoperative management. DESCRIPTION OF PROCEDURE: After obtaining the pr oper informed consent and discussing risks and benefits of surgery, the pa tient was given preoperative antibiotics in the holding area. The correct fo ot was identified and signed. She was taken to the operating room and was plac ed on the operating table in supine position. She was placed under general an esthesia by the anesthesiologist without any complications. A to urniquet was placed onto her left thigh and her left lower extremity was then prepped and draped in sterile PATIENT NAME: BLAZE SAMUEL fashion. Leg was elevated and exsanguina jed with an Esmarch and tourniquet was inflated to 300 mmHg. We utilized a previous josé antonio alex incision in the second intermetatarsal space region. Full thickness fla ps were created. We were able to then perform second, thir d, and fourth metatarsal exostectomies through this incision maintaining the normal cascade and jeremy ving any bony prominences. We then released the fourth MTP capsule as well as the extensor digitorum longus and brevis tendons to the fo urth toe. The fourth toe now appeared to be in good position both clinically and radiographically. The wound was then irrigated and closed in the usual fashion and then an ankle block was performed with 30 mL of 0.5% ropivacaine plain. The wound was sterilely dressed with a bulky soft dressing. The tourniquet was let down and the to es were well perfused at that time. The patient tolerated the procedure well. She awoke from general anesthesia without any complications. She was pl aced on her hospital bed and taken to recovery room in stable condition where she will be discharged home with followup. Dictated By: Tim Gonsalez MD Date Dictated: 08/26/2022 10:10:14 Date Transcribed: 08/26/2022 10:26:30 DB/NAF Receipt ID: [id number] Authenticated by Tim Gonsalez MD On 07:17:00 AM Electronically Signed by Tim Gonsalez MD on 1 at 0717 PATIENT NAME: BLAZE SAMUEL 2022-08-26 08:16:00-00:00 [facility] Brief Op Note REPORT#:[id number] REPORT STATUS: Signed DATE:08/26/22 TIME: 08 PATIENT: BLAZE SAMUEL UNIT #: [id number] ROOM/BED: : 36 AGE: 86 SEX: F ATTEND: Jn Gonsalez MD ADM AUTHOR: Tim Gonsalez MD * ALL edits or amendments must be made on the [employer]/computer document * Op/Inv Proc Note - Brief Pre-procedure diagnosis: left metatarsalgia left 2/3/4 MT exostoses left 4th toe deformity Post-procedure diagnosis: same as pre procedure dx Procedures performed: left 2/3/4 MT exostectomies left 4th toe deformity correction Primary Surgeon: Sunshine Pickle Processor(s): Suze Findings: left 2/3/4 exostoses left 4th toe deformity Complications: none Estimated blood loss in ml's: 10 Specimens removed/altered: left 2/3/4 exostoses Electronically Signed by Tim Gonsalez MD on at 1004 RPT #:[id number] END OF REPORT 2022-08-06 11:56:00-00:00 [id number] [place] [address] PATIENT NAME: BLAZE SAMUEL ADMIT DATE: ACCOUNT NO: [id number] ROOM NO: AGE: 86 REPORT TYPE: ELECTROCARDIOGRAM SEX: F ADMITTING PHYSICIAN: ATTENDING PHYSICIAN:Tim Gonsalez MD Order: [id number] Test Reason : PRE-OP CLEARANCE HTN Test Date/Time Stamp: FriAug 06 2022 11:56:45 Blood Pressure : / mmHG Vent. Rate : 056 BPM Atrial Rate : 056 BPM P-R Int : 164 ms QRS Dur : 102 ms QT Int : 418 ms P-R-T Axes : 053 -13 058 degree s QTc Int : 403 ms Sinus bradycardia Minimal voltage criteria for LVH, may be normal variant ( R in aVL ) Borderline ECG When compared with ECG of 03-FEB-2018 10:52, No significant change was found Confirmed by SHONA EDEN MD ([id number]) on 08/07/2022 8:49:32 PM Referred By: Tim Gonsalez Confirmed by:SHONA EDEN MD PATIENT NAME: BLAZE SAMUEL 2015-05-19 18:18:34-00:00 Name: BLAZE SAMUEL [facility] : 1935 Ordering Physician: Phil Thompson Pelvis AP : May 19, 2015 06:18:00 PM. CLINICAL INDICATION: Joint deformities Comparison Examination: None. FINDINGS: There is no radiographic mian dence of displaced fractures or dislocations of the pelvis. The pelvic and obturator rings appear intact. The pubic rami appear intact . The symphysis pubis and sacroiliac joints are unremarkable. The visualized sacral foramina are unremarkable. There are degenerative changes in both hip joints with joint sp maurice narrowing and periarticu lar osteophytes. The proximal femoral regions and acetabular regions are otherwise unremarkable. There are degenerative changes in the lower lumbar spine. If there is further concern, recommend follow-up radiographs, CT scan, or MRI for complete assessment. IMPRESSION: 1. No radiographic evidence of displaced pelvic fracture. 2. Degenerative changes in both hip joints as de scribed. SL: 24 2015-05-19 18:18:34-00:00 Name: BLAZE SAMUEL [facility] : 1935 Ordering Physician: Phil Thompson Wrist complete ( min.3 views) : May 19, 2015 06: 18:00 PM. CLINICAL INDICATION: Pain from a fall Comparison Examination: None. FINDINGS: Four views of the left wrist are submi tted for interpretation. There is a slightly comminut ed impacted intra-articular fracture distal radius the proximal 2 mm ulnar displacement the distal fracture fragment and mild angulation, apex volar. There is an associated f racture of the ulnar styloid, minimally displace d. There is normal alignment of the carpal bones, with normal scapholunate, lunotriquetral and capitate-lunate alignment. There are degenerative changes with joint space narrowing and periarticular osteoph ytes involving the triscaphe the joint the first carpometacarpal joint. The radiocarpal joint and distal radial ulnar joints are otherwise unremarkable. The carpometacarpal joints are unremarkable. There is soft tissue swellin g at the fracture site.. There are no visible radiopaque foreign bodies. If there is further concern, followup radiographs or MRI of the wrist should be performed for complete assessment. IMPRESSION: 1. Slightly impacted intra-a rticular fracture of the distal left radius with associated ulnar styloid fracture as described. SL: 2015-05-19 18:18:34-00:00 Name: BLAZE SAMUEL [facility] : 1935 Ordering Physician: Phil Thompson Forearm AP lateral : May 19, 2015 06:18:00 PM. CLINICAL INDICATION: Pain from a fall Comparison Examination: None. FINDINGS: AP and lateral vie ws of the left forearm are submitted for interpretation. There is a slightly impacted intra-articular fracture of the distal radius with associated minimally displaced ulnar styloid fracture. And there is mild ulnar displacement of the distal radial fracture fragment of 1.5 mm with mild angulation. There is otherwise normal al ignment without radiographic evidence of additional displaced fractures or dislocation. The visualized wrist and elbow joints are unremarkable. There is soft tissue swellin g around the left wrist. There are no visible radiopaque foreign bodies. If there is further concern, recommend follow-up radiographs or bone scan for complete assessment. IMPRESSION: 1. Slightly impacted intra-a rticular fracture of the distal left radius with associated minimally displaced ulnar styloid fracture. SL: 2015-05-19 17:48:56-00:00 Name: BLAZE SAMUEL [facility] : 1935 Ordering Physician: Phil Thompson Facial bone wo contrast CT : May 19, 2015 05:49: 00 PM. CLINICAL INDICATION: Pain Post Trauma Comparison Examination: None. TECHNIQUE: CT of the facial bones is performed with a multi-detector CT. Coronal and sagittal reconstructions were obtained and viewed on the [employer] workstation. Total DLP = 223.98 mGy/cm FINDINGS: There is focal soft tissue s welling along the left maxillary region. There are no facial bone fractures noted. The nasal bones are intact. The pterygoid plates are intact. The orbital roof, floor, super ior, inferior, medial and lateral hernandez are inta ct. The mandible is intact with intact mandibular condyles and coronoid processes. The maxilla is intact. The nasal turbinates are unremarkable. The paranasal sinuses are cl ear. There is mild left to right deviation of the septum of 3 mm. The cribriform plate and mounika kevyn regions are unremarkable. IMPRESSION: 1. No CT evidence of acute displaced facial bone fracture. SL: 2015-05-19 17:48:51-00:00 Name: BLAZE SAMUEL [facility] : 1935 SEX: F Ordering Physician: Phil Thompson Spine cervical wo contrast CT : May 19, 2015 05: 48:00 PM. CLINICAL INDICATION: Pain Post Trauma Comparison Examination: None Technique: Multi-detector CT imaging of the cervical spine is performed. Coronal and sagittal reconstructions were obtained and viewed on the workstation. Dose: The total exam DLP is 334 mGy-cm. FINDINGS: There is normal cervical lordosis. The prevertebral soft tissue s, atlanto-dental interspace and craniocervical junction are normal. The foramina transversarium and disc spaces are unremarkable. The posterior elements and spinous processes are normal. The facet joint, spinolaminar and spinous process alignment are normal. No cervical spine fracture or spondylolisthesis is present. Lung apices are clear. CT myelogram or MRI of the c ervical spine may be performed, if there is further concern. IMPRESSION: 1. No acute cervical spine osseous or prevertebr al soft tissue abnormality. TW -24 2015-05-19 17:48:38-00:00 Name: [facility] [facility] : 1935 Ordering Physician: Phil Thompson Brain wo contrast CT : May 19, 2015 05:48:00 PM. CLINICAL INDICATION: Head trauma Comparison Examination: None. TECHNIQUE: Axial CT images w ere obtained from the foramen magnum to the vertex without administration of intravenous contrast. Coronal and sagittal reconstructions were obtained. Total DLP = 935.2 mGy/cm FINDINGS: There is generalized brain p arenchymal atrophy related to the patient's age. Moderate nonspecific periventricular white matter disease changes are noted. There is no mass effect, mid line shift or edema. There are no intra-axial or extra-axial fluid collections, intraventricular or intraparenchymal hemorrhage. The ventricles and cisterns are otherwise unremarkable. There is no CT evidence of s troke. If there is continued concern, MRI should be performed for further assessment. There are no skull fractures noted. The visualized orbits and paranasal sinuses are unremarkable. IMPRESSION: 1. Generalized brain parench ymal atrophy related to the patient's age. Nonspecific white matter disease changes, as noted above. 2. No CT evidence of acute intracranial abnormal ity. SL: 24 2014-10-10 11:00:43-00:00 STUDY: Knee AP and lateral [facility] [place] COMPARISON: Knee x-rays dated October 11, 2013. FINDINGS: Two views of the r ight knee were obtained. Examination demonstrates postoperative changes of right total knee arthroplasty with patellar resurfacing, in anatomic alignment. Small suprapatellar joint effusion is identified. Lorri-articular os teopenia is noted. IMPRESSION: Postoperative ch anges of right knee arthroplasty in anatomic alignment. Unchanged exam. 2013-10-11 11:19:20-00:00 Exam: Right knee x-ray, 3 views [facility] [place] Reason for Exam: Right knee pain. Arthroplasty. Comparison Exam: Right knee x-ray 10/05/2012 Discussion: The patient is status post r ecent Right knee arthroplasty. The metallic hardware appears unremarkable. No acute fracture lines are seen within the bones. No suspicious osteoblastic or osteolytic lesions. Impression: 1. Unremarkable appearance of the Right knee sta tus post arthroplasty.
[2023-06-07 15:54] LABS: Absolute Lymphocytes (CBC) 3.5 K/uL (0.7-4.9); Hematocrit 39.8 % (36.0-45.0); Lymphocytes % 45.4 % (15.3-44.8); MCV 93.6 fL (80-100); MPV 9.4 fL (7.6-11.3); RBC Red Blood Cell Count 4.25 M/uL (3.86-4.86)
[2023-06-07 16:09] LABS: Potassium 4.1 mEq/L (3.5-5.1)
--- NOTE | 2023-06-07 16:56 | RAD REPORT ---
EXAM DESCRIPTION: CT - Int Auditory Canals W/Contr - 06/07/2023 4:47 pm CLINICAL HISTORY: EAR PAIN/ NUMB LIPS COMPARISON: No comparisons TECHNIQUE: The temporal bones were scanned in the direct axial plane using high resolution thin slic es without contrast. Coronal and sagittal reformatted images were obtained and reviewed. All CT scans are performed using dose optimization technique as appropriate and may include automated exposure control or mA/KV adjustment according to patient size. FINDINGS: On the right, the external auditory canal, mastoid complexes, and middle ear, including the ossicles and pneumatization are normal. The tegmen tympani and scutum are normal. The oval and round windows are normal. The inner ear, including the cochlea, vestibule, semicircular canals and internal combustion engine inspector y canal are normal. The vestibular aqueduct is not enlarged. The course and caliber of the facial n erve, including the mastoid portion, is normal. The course of the internal carotid artery and jugula r vein are normal. On the left, the external auditory canal, mastoid complexes, and middle ear, including the ossicles a nd pneumatization are normal. The tegmen tympani and scutum are normal. The oval and round windows a re normal. The inner ear, including the cochlea, vestibule, semicircular canals and internal combustion engine inspector y canal are normal. The vestibular aqueduct is not enlarged. The course and caliber of the facial n erve, including the mastoid portion, is normal. The course of the internal carotid artery and jugula r vein are normal. No pathologic post-contrast enhancement seen. IMPRESSION: Normal temporal bones. No pathologic post-contrast enhancement seen.
--- NOTE | 2023-06-07 17:33 | ER ---
Nurse's Notes [facility] Name: Julia Chappell Age: 87 yrs Sex: Female : 1935 Arrival Date: 06/07/2023 Time: 14:07 Bed 6 Private MD: Diagnosis: Palumbo's palsy;Otalgia, left ear Presentation: 06/07 14:31 Chief complaint: Patient states: L ear pain, L facial pain with numbness started this ll1 morning. Believes she might have bells palsy again. Coronavirus screen: Vaccine status: Patient reports receiving the 2nd dose of the covid vaccine. Client denies travel out of the [place] in the last 14 days. At this time, the client does not indicate any symptoms associated with coronavirus-19. Ebola Screen: Patient denies travel to an Ebola-affected area in the 21 days before illness onset. Initial Sepsis Screen: Does the patient meet any 2 criteria? No. Patient's initial sepsis screen is negative. Does the patient have a suspected source of infection? No. Patient's initial sepsis screen is negative. Risk Assessment: Do you want to hurt yourself or someone else? Patient reports no desire to harm self or others. Onset of symptoms was June 07, 2023. 14:31 Method Of Arrival: Ambulatory ll1 14:31 Acuity: MAGI 3 ll1 Triage Assessment: 14:35 General: Appears uncomfortable, Behavior is calm, cooperative, appropriate for age. ll1 Pain: Complains of pain in left ear Pain currently is 3 out of 10 on a pain scale. Quality of pain is described as aching. EENT: Reports pain in left ear. Neuro: Reports numbness in L side of face. Cardiovascular: No deficits noted. Respiratory: No deficits noted. Historical: - Allergies: 14:33 HYDRALAZINE; ll1 - PMHx: 14:33 Hyperlipidemia; Hypertension; Hypothyroidism; ll1 - PSHx: 14:33 section; ll1 - Immunization history:: Client reports receiving the 2nd dose of the Covid vaccine. - Social history:: Smoking status: Patient denies any tobacco usage or history of. Screenin:08 [facility] ED Fall Risk Assessment (Adult) Score/Fall Risk Level 0 - 2 = Low Risk. Abuse me1 screen: Denies threats or abuse. Nutritional screening: No deficits noted. Tuberculosis screening: No symptoms or risk factors identified. Assessment: 15:04 Reassessment: No changes from previously documented assessment. Patient and/or family ss updated on plan of care and expected duration. Pain level reassessed. Patient is alert, oriented x 3, equal unlabored respirations, skin warm/dry/pink. 15:08 General: Appears uncomfortable, Behavior is calm, cooperative, appropriate for age. me1 Pain: Complains of pain in left face Pain does not radiate. Pain currently is 4 out of 10 on a pain scale. Quality of pain is described as burning, tingling, numb. 15:08 Neuro: Level of Consciousness is awake, alert, obeys commands, Oriented to person, me1 place, time, situation. Cardiovascular: Capillary refill < 3 seconds is brisk in bilateral fingers Patient's skin is warm and dry. Respiratory: Respiratory effort is even, unlabored, Respiratory pattern is regular, symmetrical. Vital Signs: 14:30 BP 199 / 75; Pulse 57; Resp 16; Pulse Ox 98% on R/A; me1 14:31 BP 178 / 70; Pulse 60; Resp 16; Temp 97.5; Pulse Ox 99% ; Weight 68.04 kg; Height 5 ft. ll1 3 in. ; Pain 3/10; 14:33 BP 196 / 64; Pulse 59; Resp 16; Pulse Ox 99% on R/A; me1 18:16 BP 189 / 78; Pulse 58; Resp 18; Temp 97; Pulse Ox 99% ; ph 14:31 Body Mass Index 26.57 (68.04 kg, 160.02 cm) ll1 14:31 Pain Scale: Adult ll1 ED Course: 14:10 Patient arrived in ED. ts1 14:15 Shanelle Wesley NP is PHCP. aj3 14:15 Terence Cabral DO is Attending Physician. aj3 14:32 Triage completed. ll1 14:33 Arm band placed on. ll1 15:04 Patient placed in an exam room, on a stretcher. ss 15:08 Madelyn Hall, RN is Primary Nurse. me1 15:08 Patient has correct armband on for positive identification. Bed in low position. Call me1 light in reach. Provided Education on: POC. Verbalized understanding. . 15:08 No provider procedures requiring assistance completed. me1 15:49 BMP Sent. me1 15:49 CBC with Diff Sent. me1 15:49 Inserted saline lock: 20 gauge in right antecubital area, using aseptic technique. me1 16:49 Int Auditory Canals W/Contr In Process Unspecified. EDMS 18:16 IV discontinued, intact, bleeding controlled, No redness/swelling at site. Pressure ph dressing applied. Administered Medications: 17:47 Drug: predniSONE PO 60 mg Route: PO; me1 18:16 Follow up: Response: No adverse reaction ph Medication: 15:08 VIS not applicable for this client. me1 Outcome: 17:32 Discharge ordered by . aj3 18:15 Discharged to home ambulatory. ph 18:15 Condition: good 18:15 Discharge instructions given to patient, Instructed on discharge instructions, follow up and referral plans. medication usage, Demonstrated understanding of instructions, follow-up care, medications, Prescriptions given X 3. 18:17 Patient left the ED. ph Signatures: Dispatcher [employer] EDFartun Haskins RN RN Gita Gary RN RN Ross Lopez RN RN ll1 Shanelle Weslye, CHUCKING MACHINE OPERATOR CHUCKING MACHINE OPERATOR [email or web address] Holli Carlson, PAS PAS ts1 Madelyn Hall, RN RN me1
--- NOTE | 2023-06-07 17:33 | EDPHYS ---
Physician Documentation [facility] Name: Julia Chappell Age: 87 yrs Sex: Female : 1935 Arrival Date: 06/07/2023 Time: 14:07 Bed 6 Private MD: ED Physician Terence Cabral HPI: 06/07 14:40 This 87 yrs old Female presents to ER via Ambulatory with complaints of Ear Pain, aj3 Numbness Of Lips. 14:40 She reports waking up with pain behind the left ear and down the side of her neck, aj3 slight numbness and drooping of the left lip associated with her eye feeling heavy. 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 She denies any dizziness, numbness, weakness, chest pain, shortness of breath, slurred speech.. Historical: - Allergies: 14:33 HYDRALAZINE; ll1 - PMHx: 14:33 Hyperlipidemia; Hypertension; Hypothyroidism; ll1 - PSHx: 14:33 section; ll1 - Immunization history:: Client reports receiving the 2nd dose of the Covid vaccine. - Social history:: Smoking status: Patient denies any tobacco usage or history of. ROS: 14:40 Constitutional: Negative for fever, chills, and weight loss, Cardiovascular: Negative aj3 for chest pain, palpitations, and edema, Respiratory: Negative for shortness of breath, cough, wheezing, and pleuritic chest pain, MS/Extremity: Negative for injury and deformity, Skin: Negative for injury, rash, and discoloration. 14:40 ENT: Positive for ear pain. 14:40 Neuro: Positive for tingling, Mouth. Exam: 14:40 Constitutional: This is a well developed, well nourished patient who is awake, alert, aj3 and in no acute distress. Cardiovascular: Regular rate and rhythm with a normal S1 and S2. No gallops, murmurs, or rubs. Normal PMI, no JVD. No pulse deficits. Respiratory: Lungs have equal breath sounds bilaterally, clear to auscultation and percussion. No rales, rhonchi or wheezes noted. No increased work of breathing, no retractions or nasal flaring. Abdomen/GI: Soft, non-tender, with normal bowel sounds. No distension or tympany. No guarding or rebound. No evidence of tenderness throughout. Skin: Warm, dry with normal turgor. Normal color with no rashes, no lesions, and no evidence of cellulitis. MS/ Extremity: Pulses equal, no cyanosis. Neurovascular intact. Full, normal range of motion. Neuro: Awake and alert, GCS 15, oriented to person, place, time, and situation. Motor strength 5/5 in all extremities. Sensory grossly intact. Normal gait. 14:40 ENT: External ear(s): are unremarkable, Ear canal(s): are normal, TM's: are normal, aj3 Left mastoid tenderness. Vital Signs: 14:30 BP 199 / 75; Pulse 57; Resp 16; Pulse Ox 98% on R/A; me1 14:31 BP 178 / 70; Pulse 60; Resp 16; Temp 97.5; Pulse Ox 99% ; Weight 68.04 kg; Height 5 ft. ll1 3 in. ; Pain 3/10; 14:33 BP 196 / 64; Pulse 59; Resp 16; Pulse Ox 99% on R/A; me1 18:16 BP 189 / 78; Pulse 58; Resp 18; Temp 97; Pulse Ox 99% ; ph 14:31 Body Mass Index 26.57 (68.04 kg, 160.02 cm) ll1 14:31 Pain Scale: Adult ll1 MDM: 15:01 Patient medically screened. aj3 16:00 Differential diagnosis: otitis media, otitis externa, Mastoiditis, Palumbo's palsy. Data aj3 reviewed: vital signs, nurses notes, radiologic studies, CT scan. Independent interpretation of the following test(s) in the Emergency Department CT Scan: My interpretation is No obvious abnormality noted.. Counseling: I had a detailed discussion with the patient and/or guardian regarding: the historical points, exam findings, and any diagnostic results supporting the discharge/admit diagnosis, lab results, radiology results, to return to the emergency department if symptoms worsen or persist or if there are any questions or concerns that arise at home. 06/07 15:12 Order name: CBC with Diff; Complete Time: 16:10 3 06/07 15:12 Order name: BMP; Complete Time: 16:10 [facility] 06/07 15:22 Order name: Int Auditory Canals W/Contr; Complete Time: 17:30 EDMS Administered Medications: 17:47 Drug: predniSONE PO 60 mg Route: PO; me1 18:16 Follow up: Response: No adverse reaction ph Disposition: 06/08 13:37 Co-signature as Attending Physician, Terence Cabral DO I was immediately available on-site ms3 in the Emergency Department for consultation in the care of the patient. Disposition Summary: 06/07/23 17:32 Discharge Ordered Location: Home aj3 Problem: new aj3 Condition: Stable aj3 Diagnosis - Palumbo's palsy aj3 - Otalgia, left ear aj3 Followup: aj3 - With: Private Physician - When: - Reason: Recheck today's complaints, Re-evaluation by your physician Followup: aj3 - With: Emergency Department - When: - Reason: Worsening of condition Discharge Instructions: - Discharge Summary Sheet aj3 - Palumbo's Palsy, Adult aj3 Forms: - Medication Reconciliation Form aj3 - Thank You Letter aj3 - Antibiotic Education aj3 - Prescription Opioid Use aj3 - Patient Portal Instructions aj3 Prescriptions: - Artificial Tears (PF) Ophthalmic Dropperette - instill 1 drop by OPHTHALMIC route every 6 to 8 hours as needed for dry eye(s); aj3 1 Each; Refills: 0, Product Selection Permitted - valacyclovir 1 gram Oral tablet - take 1 tablet by ORAL route every 8 hours for 7 days; 21 tablet; Refills: 0, aj3 Product Selection Permitted - Prednisone 20 mg Oral Tablet - take 3 tablets by ORAL route once daily for 7 days; 21 tablet; Refills: 0, aj3 Product Selection Permitted Signatures: Dispatcher [employer] EDAZ Ross Lopez RN RN 1 Terence Cabral DO DO ms3 Shanelle Wesley, BARNEY LEAD SOFTWARE ENGINEER aj3 Madelyn Hall RN RN me1 Gita Gary RN ph Corrections: (The following items were deleted from the chart) 06/07 15:26 15:19 Maxillofacial W/Cont+CT.RAD.BRZ ordered. EDAZ EDMS 20:05 20:04 ENT: External ear(s): are unremarkable, Ear canal(s): are normal, TM's: are aj3 normal, Left mastoid tenderness. aj3
[2023-06-07] MEDS ORDERED: predniSONE 20 MG TAB ONE (17:54)
[2023-06-07 18:44] VITALS: O2SAT 99
[2023-06-07 18:51] VITALS: BP 189/78; TEMP 97
== END 2023-06-07 18:17 | disposition home or self-care (01) ==
LOC: ER 14:07
DX: G51.0 Bell's palsy (principal); H92.02 Otalgia, left ear; R20.2 Paresthesia of skin; I10 Essential (primary) hypertension; Z88.8 Allergy status to other drugs, medicaments and biological substances
CPT/HCPCS: 85025; 80048; 36415; 70481; 99284; Q9967; J7512

== ENCOUNTER 2023-07-14 10:05 | Emergency (ER) | payer OTHER, BC ==
--- OUTSIDE RECORDS SUMMARY | 2023-07-14 10:12 | XMS REPORT | Continuity of Care Document ---
:1935 Author Organization [facility] t Address [address] [place] [address] [address] [place] [address] Care Team Providers Name Role Phone Jaime Gerardo Attending Clinician Tobias Attending Clinician Unavailable Tim Gonsalez Attending Clinician Unavailable Phil Thompson Attending Clinician Tomas Bridges Attending Clinician Tobias Admitting Clinician Unavailable Tim Gonsalez Admitting Clinician Unavailable Tomas Bridges Admitting Clinician Payers Payer Name Policy Type Policy Number Effective Date Expiration Date Lana pike [place]: [id number] 2001 [id number] 00:00:00 [place] [id number] 2001 (MEDICARE 00:00:00 SUPPLEMENT) MEDICARE PART A \T\ [id number] 2001 B 00:00:00 BCBS TRADITIONAL [id number] 2001 00:00:00 Problems Condition Condition Condition Status [...] 20:15:00 l 05/19/2015 16:30: Enrique warner [facility] Problem Active Marli fracture Fracture [...] KNEE CPT RIGHT KNEE 00:00: Yue ram [id number] CPT 52252 00 Active 09/04/2011 [facility] RIGHT KNEE RIGHT Diagnosis Active 2011-08-27 Memoria PAIN KNEE PAIN 11-10 14:29:00 l Active 00:00: Benedict 11/10/2000 00 [facility] 715.96 715.96 Diagnosis Active 2011-10-24 Me moria Active 11-10 13:39:00 l 11/10/2000 00:00: Enrique warner 00 [facility] RIGHT KNEE RIGHT Diagnosis Active 2000-2013-10-11 Memoria PAIN KNEE PAIN - 10:16:00 l 715.96 715.96 00:00: Zearing Active 00 11/10/2000 [facility] RIGHT KNEE RIGHT Diagnosis Active 2000-2012-10-05 Memoria OSTEOARTHR KNEE - 10:52:00 l ITIS OSTEOARTHR 00:00: Enrique n ITIS 00 Active 11/10/2000 [facility] RIGHT KNEE RIGHT Diagnosis Active 2014-10-10 Memoria 715.96 KNEE 11-10 10:51:00 l 715.96 00:00: Zearing Active 00 11/10/2000 [facility] Cough Cough Problem Active 2023-03-02 Louis shannan (finding) (finding) 11:33:51 l Active Zearing Problem 03/02/2023 [facility] [place] [facility] [place] Hand pain Hand pain Problem Active 2023-03-02 Memoria (finding) (finding) 11:33:51 l Active Benedict Problem 03/02/2023 [facility] [place] [facility] [place] Hyperlipid Hyperlipi Problem Active 2023-03-02 Memoria emia demia 11:33:51 l (disorder) (disorder) He rmann Active Problem 03/02/2023 [facility] [place] [facility] [place] Hypertensi Hypertens Problem Active 2023-03-02 Memoria ve alanis 11:33:51 l disorder, disorder, Herm leanna systemic systemic arterial arterial (disorder) (disorder) Active Problem 03/02/2023 [facility] [place] [facility] [place] Hypothyroi Hypothyro Problem Active 2023-03-02 Memoria dism idism 11:33:51 l (disorder) (disorder) He rmann Active Problem 03/02/2023 [facility] [place] 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 Enrique n (disorder) (disorder) Active Problem 03/02/2023 [facility] [place] Gallstone Problem Active 2012-10-07 Nd moriyasemin Gallstone 10:08:27 l Active Zearing Problem 10/07/2012 [facility] Glaucoma Glaucoma Problem Active 2012-10-07 Memoria Active 10:08:27 l Problem Zearing 10/07/2012 [facility] Hyperchole Hyperchol Problem Active 2012-10-07 Memoria sterolemia esterolemi 10:08:27 l a Active Zearing Problem 10/07/2012 [facility] Hypothyroi Hypothyro Problem Active 2012-10-07 Memoria dism idism 10:08:27 l Active Benedict Problem 10/07/2012 [facility] Gallbladde Gallbladd Problem Active 2015-05-22 Memoria r calculus er 03:56:57 l (disorder) calculus Herm leanna (disorder) Active Problem 05/22/2015 [facility] Glaucoma Glaucoma Problem Active 2015-05-22 Memoria (disorder) (disorder) 03:56:57 l Active Zearing Problem 05/22/2015 [facility] Hyperchole Problem Active 2015-05-22 M emoria sterolemia Hyperchole 03:56:57 l (disorder) sterolemia He rmann (disorder) Active Problem 05/22/2015 [facility] Arthralgia Arthralgi Problem Active 2015-05-22 Memoria of the a of the 03:56:57 l lower leg lower leg Herm leanna (finding) (finding) Active Problem 05/22/2015 [facility] ADMINISTRT ADMINISTR Diagnosis Active 2011-10-16 Memoria VE ENCOUNT TVE 21:51:00 l NOS ENCOUNT Benedict NOS Active [facility] OSTEOARTHR OSTEOARTH Diagnosis Active 2014-10-10 Memoria OS ROS 10:51:00 l NOS-L/LEG NOS-L/LEG Herm leanna Active [facility] OSTEOARTHR OSTEOARTH Diagnosis Active 2012-10-05 Memoria O NOS-OTH RO NOS-OTH 10:52:00 l SITE SITE Zearing Active [facility] Right knee Right Problem Active 2013-10-13 M emoria pain knee pain 22:22:26 l Active Zearing Problem 10/13/2013 [facility] History of Past Illness Condition Condition Condition Status Onset Resolution Last Treating Co mments Source Name Details Category Date Date Treatment Clinician Date Discharge Discharge Problem 2015-05-22 2015-05-22 Memoria Diagnosis: Diagnosis: 05-19 03:56:57 03:56:57 l Laceration Laceration 05:00: He rmann of nose of nose 00 05/19/2015 05/22/2015 [facility] Discharge Discharge Problem 2015-05-22 2015-05-22 Memoria Diagnosis: Diagnosis: 05-19 03:56:57 03:56:57 l Closed Closed 05:00: Benedict fracture fracture 00 of left of left distal distal radius radius 05/19/2015 05/22/2015 [facility] Discharge Problem 2015-05-22 2015-05-[facility] Diagnosis: Discharge 05-19 03:56:57 03:56:57 l Laceration Diagnosis: 05:00: He rmann of lip Laceration 00 of lip 05/19/2015 05/22/2015 [facility] Discharge Discharge Problem 2015-05-22 2015-05-22 Memoria Diagnosis: Diagnosis: 05-19 03:56:57 03:56:57 l Blunt head Blunt head 05:00: He rmann trauma trauma 00 05/19/2015 05/22/2015 [facility] Allergies, Adverse Reactions, Alerts Allergy Allergy Status Severity Reaction(s) Onset Inactive Treating Comm ents Source Name Type Date Date Clinician No Known DA Active [facility]ie 9 [place] [facility] 00[facility] No Known DA Active [facility] Drug 3 [place] Allergie 00:00: Orthope s 00 [facility] NO KNOWN Drug Active [facility] ALLERGIE Class ity of S [facility] NKFA NKFA Active Memoria l [place] Social History Smoking Status Start Date Stop Date Source Tobacco smoking status [facility] Medications Ordered Filled Start Stop Current Ordering Indication Dosage Frequency Signature Comments Components Source Medication Medication Date Date Medication? Clinician (SIG) Name Name omeprazole No TAKE 1 Memor ia 20 mg oral 6-17 CAPSULE BY l delayed 19:54: MOUTH Benedict release 00 EVERY DAY capsule omeprazole No TAKE 1 Memor ia 20 mg oral 6-17 CAPSULE BY l delayed 19:54: MOUTH Benedict release 00 EVERY DAY capsule omeprazole No TAKE 1 Memor ia 20 mg oral 6-17 CAPSULE BY l delayed 19:54: MOUTH Zearing release 00 EVERY DAY capsule levobunolol Yes INSTILL 1 M emoria ophthalmic 6-17 DROP IN l 0.5% 19:35: BOTH EYES Benedict solution 00 EVERY 12 HOURS levobunolol 0 Yes INSTILL 1 M emoria ophthalmic 6-17 DROP IN l 0.5% 19:35: BOTH EYES Benedict solution 00 EVERY 12 HOURS levobunolol 0 Yes INSTILL 1 M emoria ophthalmic 6-17 DROP IN l 0.5% 19:35: BOTH EYES Zearing solution 00 EVERY 12 HOURS latanoprost Yes 1 drp, Louis shannan ophthalmic 6-17 BOTH EYES, l 0.005% 19:33: QPM, 0 Benedict solution 00 Refill(s) latanoprost Yes 1 drp, Louis shannan ophthalmic 6-17 BOTH EYES, l 0.005% 19:33: QPM, 0 Zearing solution 00 Refill(s) latanoprost Yes 1 drp, Louis shannan ophthalmic 6-17 BOTH EYES, l 0.005% 19:33: QPM, 0 Zearing solution 00 Refill(s) Vitamin C Yes 250 mg = 1 Me moria 250 mg oral 6-17 tab, PO, l tablet 19:32: Daily, 0 Benedict 00 Refill(s) Vitamin C Yes 250 mg = 1 Me moria 250 mg oral 6-17 tab, PO, l tablet 19:32: Daily, 0 Zearing 00 Refill(s) Vitamin C Yes 250 mg = 1 Me moria 250 mg oral 6-17 tab, PO, l tablet 19:32: Daily, 0 Zearing 00 Refill(s) Wingina Yes 60 mg = 1 Memori a Thyroid 60 6-17 tab, PO, l mg oral 19:31: Daily, 0 Enrique n tablet 00 Refill(s) Wingina 0 Yes 60 mg = 1 Memori a Thyroid 60 6-17 tab, PO, l mg oral 19:31: Daily, 0 Enrique n tablet 00 Refill(s) Wingina Yes 60 mg = 1 Memori a Thyroid 60 6-17 tab, PO, l mg oral 19:31: Daily, 0 Enrique n 00 Refill(s) biotin Yes 2,000 mg, Memori a 6-17 PO, Daily, l 19:30: 0 Refill(s) biotin Yes 2,000 mg, Memori a 6-17 PO, Daily, l 19:30: 0 Refill(s) biotin Yes 2,000 mg, Memori a 6-17 PO, Daily, l 19:30: 0 Refill(s) Co Q-10 Yes 60 mg, PO, Louis shannan 6-17 Daily, 0 l 19:29: Refill(s) Co Q-10 Yes 60 mg, PO, Louis shannan 6-17 Daily, 0 l 19:29: Refill(s) Co Q-10 Yes 60 mg, PO, Louis shannan 6-17 Daily, 0 l 19:29: Refill(s) Florajen Yes PO, Daily, Mem oria Women 6-17 0 l 19:28: Refill(s) Florajen Yes PO, Daily, Mem oria Women 6-17 0 l 19:28: Refill(s) Florajen Yes PO, Daily, Mem oria Women 6-17 0 l 19:28: Refill(s) rosuvastati Yes 0 Memori a n 20 mg 6-17 Refill(s) l oral tablet 19:27: Enrique n rosuvastati Yes 0 Memori a n 20 mg 6-17 Refill(s) l oral tablet 19:27: Enrique n rosuvastati Yes 0 Memori a n 20 mg 6-17 Refill(s) l oral tablet 19:27: Enrique n amLODIPine Yes 0 Memoria 5 mg oral 6-17 Refill(s) l tablet 19:25: amLODIPine Yes 0 Memoria 5 mg oral 6-17 Refill(s) l tablet 19:25: amLODIPine 0 Yes 0 Memoria 5 mg oral 6-17 [...] n day, # 28 tab, 0 Refill(s) tramadol [...] day, # 30 tab, 0 Refill(s) tramadol 0 No 50 mg, Memoria hydrochlori 7-11 Route: [...] 05/19/15 19:47:00, Stop date: 05/19/15 19:47:00 tramadol 2015-0 No 50 mg, Memoria hydrochlori 7-11 Route: PO, l de 50 MG 00:47: Drug form: Her ingram Oral Tablet 00 TAB, ONCE, [Ultram] Dosing Weight 65.455, kg, Priority: STAT, Start date: 05/19/15 19:47:00, Stop date: 05/19/15 19:47:00 Fentanyl 2014-0 No 25 Memoria 7-11 microgram, l 00:02: Route: Zearing 00 IVP, ONCE, Dosing Weight 65.455, kg, Priority: STAT, Start date: 05/19/15 19:02:00, Stop date: 05/19/15 19:02:00 Fentanyl 2015-0 No 25 Memoria 7-11 microgram, l 00:02: Route: Benedict 00 IVP, ONCE, Dosing Weight 65.455, kg, Priority: STAT, Start date: 05/19/15 19:02:00, Stop date: 05/19/15 19:02:00 Fentanyl 2015-0 No 25 Memoria 7-11 microgram, l 00:02: Route: Benedict 00 IVP, ONCE, Dosing Weight 65.455, kg, Priority: STAT, Start date: 05/19/15 19:02:00, Stop date: 05/19/15 19:02:00 Phenergan 2010-11 No Tomas L 25 mg, 1 M emoria 1-30 [place] mL, Route: l 22:38: IVPB, Q6H, Zearing 00 PRN Nausea & Vomiting, Start date: 10/09/11 16:38:00, Duration: 30 day, Stop date: 11/08/11 16:37:00 Phenergan 2010-11 No Tomas L 25 mg, 1 M emoria 1-30 [place] mL, Route: l 22:38: IVPB, Q6H, Zearing 00 PRN Nausea & Vomiting, Start date: [...] [place] mL, Route: l 22:36: IV, Drug Zearing 00 form: INJ, Q8H, PRN See Nurse's [...] [place] mL, Route: l 22:36: IV, Drug Zearing 00 form: INJ, Q8H, PRN See Nurse's Notes, Start date: 10/09/11 16:36:00, Duration: 30 day, Stop date: 11/08/11 16:35:00 Xalatan 2010-11 No Glenn Donald 1 drp, Me moria 1-30 [place] Route: l 03:00: BOTH EYES, Zearing 00 Bedtime, Drug form: SOLN, Start date: 10/08/11 21:00:00, Duration: 30 day, Stop date: 11/06/11 21:00:00 Xalatan 2010-11 No Glenn Donald 1 drp, Me moria 1-30 [place] Route: l 03:00: BOTH EYES, Benedict 00 Bedtime, Drug form: SOLN, Start date: 10/08/11 21:00:00, Duration: 30 day, Stop date: 11/06/11 21:00:00 Xalatan 2010-11 No Glenn Donald 1 drp, Me moria 1-30 [place] Route: l 03:00: BOTH EYES, Benedict 00 Bedtime, Drug form: SOLN, Start date: 10/08/11 21:00:00, Duration: 30 day, Stop date: 11/06/11 21:00:00 Protonix 2010-11 No Tomas L 40 mg, 1 Me moria 12-08 [place] tab, l 22:30: Route: PO, Zearing Drug form: ECTAB, Before Dinner, Start date: [...] No Tomas L 1 tab, Louis shannan - [place] Route: PO, l 16:15: Drug Form: Benedict 00 TAB, BID, Start date: 10/08/11 10:15:00, Duration: 30 day, Stop date: 11/07/11 9:00:00 Floranex 2010-11 No Tomas L 1 tab, Louis shannan 1- [place] Route: PO, l 16:15: Drug Form: Benedict 00 TAB, BID, Start date: 10/08/11 10:15:00, Duration: 30 day, Stop date: 11/07/11 9:00:00 Floranex 2010-11 No Tomas L 1 tab, Louis shannan 1-29 [place] Route: PO, l 16:15: Drug Form: Zearing 00 TAB, BID, Start date: 10/08/11 10:15:00, Duration: 30 day, Stop date: 11/07/11 9:00:00 ferrous 2010-11 No Tomas L 325 mg, 1 Me moria sulfate 12-08 [place] tab, l 15:57: Route: PO, Drug form: TAB, BID, Start [...] 12-08 [place] tab, l 15:57: Route: PO, Drug form: TAB, BID, Start date: 10/08/11 9:57:00, Duration: 30 day, Stop date: 11/07/11 9:00:00 Senokot 2010-11 No Tomas L 8.6 mg, 1 Me moria 12-08 [place] tab, l 15:00: Route: PO, Drug form: TAB, Daily, Start date: 10/08/11 9:00:00, Duration: 30 day, Stop date: 11/06/11 9:00:00 Vitamin D3 2010-11 No Glenn Donald 2,000 Memoria - [place] IntlUnit, l 15:00: 2 tab, Route: PO, Drug form: TAB, BID, Start date: 10/08/11 9:00:00, Duration: 30 day, Stop date: 11/06/11 17:00:00 Estrace 2010-11 No Glenn Donald 0.5 mg, M emoria - [place] 0.5 tab, l 15:00: Route: PO, Drug form: TAB, QAM, Start date: 10/08/11 9:00:00, Duration: 30 day, Stop date: 11/06/11 9:00:00 multivitami 2010-11 No Glenn Donald 1 tab, Memoria n 1-29 [place] Route: PO, l 15:00: Drug Form: Benedict 00 TAB, QAM, Start date: 10/08/11 9:00:00, Duration: 30 day, Stop date: 11/06/11 9:00:00 Senokot 2010-11 No Tomas L 8.6 mg, 1 Me moria -29 [place] tab, l 15:00: Route: PO, Benedict 00 Drug form: TAB, Daily, Start date: 10/08/11 9:00:00, Duration: 30 day, Stop date: 11/06/11 9:00:00 Vitamin D3 2010-11 No Glenn Donald 2,000 Memoria 1-29 [place] IntlUnit, l 15:00: 2 tab, Zearing 00 Route: PO, Drug form: TAB, BID, Start date: 10/08/11 9:00:00, Duration: 30 day, Stop date: 11/06/11 17:00:00 Estrace 2010-11 No Glenn Donald 0.5 mg, M emoria - [place] 0.5 tab, l 15:00: Route: PO, Zearing 00 Drug form: TAB, QAM, Start date: 10/08/11 9:00:00, Duration: 30 day, Stop date: 11/06/11 9:00:00 multivitami 2010-11 No Glenn Donald 1 tab, Memoria n 1- [place] Route: PO, l 15:00: Drug Form: Benedict 00 TAB, QAM, Start date: 10/08/11 9:00:00, Duration: 30 day, Stop date: 11/06/11 9:00:00 Senokot 2010-11 No Tomas L 8.6 mg, 1 Me moria 12-08 [place] tab, l 15:00: Route: PO, Zearing 00 Drug form: TAB, Daily, Start date: 10/08/11 9:00:00, Duration: 30 day, Stop date: 11/06/11 9:00:00 Vitamin D3 2010-11 No Glenn Donald 2,000 Memoria 1-29 [place] IntlUnit, l 15:00: 2 tab, Zearing 00 Route: PO, Drug form: TAB, BID, Start date: 10/08/11 9:00:00, Duration: 30 day, Stop date: 11/06/11 17:00:00 Estrace 2010-11 No Glenn Donald 0.5 mg, M emoria 1-29 [place] 0.5 tab, l 15:00: Route: PO, [...] No Glenn Donald 0.05 mg, 1 Memoria -29 [place] tab, l 14:00: Route: PO, Drug form: TAB, [id number], Start date: 10/08/11 8:00:00, Duration: 30 day, Stop date: 11/07/11 6:30:00 Levothroid 2010-11 No Glenn Donald 0.05 mg, 1 Memoria -29 [place] tab, l 14:00: Route: PO, Drug form: TAB, [id number], Start date: 10/08/11 8:00:00, Duration: 30 day, Stop date: 11/07/11 6:30:00 Lovenox 2010-11 No Tomas L 30 mg, 0.3 M emoria - [place] mL, Route: l 13:00: SUB-Q, Drug form: INJ, [id number], Start date: 10/08/11 7:00:00, Duration: 30 day, Stop date: 11/06/11 19:00:00 Lovenox 2010-11 No Tomas L 30 mg, 0.3 M emoria 1-29 [place] mL, Route: l 13:00: SUB-Q, Benedict 00 Drug form: INJ, [id number], Start date: 10/08/11 7:00:00, Duration: 30 day, Stop date: 11/06/11 19:00:00 Lovenox 2010-11 No Tomas L 30 mg, 0.3 M emoria 1-29 [place] mL, Route: l 13:00: SUB-Q, Zearing 00 Drug form: INJ, [id number], Start date: 10/08/11 7:00:00, Duration: 30 day, [...] Tomas L 25 mg, 1 Me moria 1-29 [place] cap, l 00:59: Route: PO, Drug form: CAP, Q6H, PRN Itching, Start date: 10/07/11 18:59:00, Duration: 30 day, Stop date: 11/06/11 18:58:00 Benadryl 2010-11 No Tomas L 25 mg, 1 Me moria 1-29 [place] cap, l 00:59: Route: PO, Benedict 00 Drug form: CAP, Q6H, PRN Itching, Start date: 10/07/11 18:59:00, Duration: 30 day, Stop date: 11/06/11 18:58:00 Benadryl 2010-11 No Tomas L 25 mg, 1 Me moria 1-29 [place] cap, l 00:59: Route: PO, Drug form: CAP, Q6H, PRN Itching, Start date: 10/07/11 18:59:00, Duration: 30 day, Stop date: 11/06/11 18:58:00 Dulcolax 2010-11 No Tomas L 10 mg, 1 Me moria Laxative 12-08 [place] supp, l 00:58: Route: CT, Drug form: SUPP, Daily, PRN Constipati on, Start date: 10/07/11 18:58:00, Duration: 30 day, Stop date: 11/06/11 18:57:00 Dulcolax 2010-11 No Tomas L 10 mg, 1 Me moria Laxative 12-08 [place] supp, l 00:58: Route: CT Drug form: SUPP, Daily, PRN Constipati on, Start date: 10/07/11 18:58:00, Duration: 30 day, Stop date: 11/06/11 18:57:00 Dulcolax 2010-11 No Tomas L 10 mg, 1 Me moria Laxative 12-08 [place] supp, l 00:58: Route: CT Drug form: SUPP, Daily, PRN Constipati on, Start date: 10/07/11 18:58:00, Duration: 30 day, Stop date: 11/06/11 18:57:00 Dulcolax 2010-11 No Tomas L 5 mg, 1 Mem oria Laxative 29 [place] tab, l 00:57: Route: PO Drug form: ECTAB, Daily, PRN Constipati on, Start date: 10/07/11 18:57:00, Duration: 30 day, Stop date: 11/06/11 18:56:00 Dulcolax 2010-11 No Tomas L 5 mg, 1 Mem oria Laxative 29 [place] tab, l 00:57: Route: PO, Benedict 00 Drug form: ECTAB, Daily, PRN Constipati on, Start date: 10/07/11 18:57:00, Duration: 30 day, Stop date: 11/06/11 18:56:00 Dulcolax 2010-11 No Tomas L 5 mg, 1 Mem oria Laxative 12-08 [place] tab, l 00:57: Route: PO, Zearing 00 Drug form: ECTAB, Daily, PRN Constipati on, [...] [place] Route: PO, l 00:56: Drug Form: Zearing 00 SUSP, Daily, PRN Constipati on, Start [...] 100 mg, 1 M emoria sodium 100 1-29 [place] cap, l mg oral 00:54: Route: PO, Herm leanna capsule 00 Drug form: CAP, BID, Start date: 10/07/11 18:54:00, Duration: 30 day, Stop date: 11/06/11 17:00:00 docusate 2010-11 No Tomas L 100 mg, 1 M emoria sodium 100 1-29 [place] cap, l mg oral 00:54: Route: PO, Herm leanna capsule Drug form: CAP, BID, Start date: 10/07/11 18:54:00, Duration: 30 day, Stop date: 11/06/11 17:00:00 docusate 2010-11 No Tomas L 100 mg, 1 M emoria sodium 100 - [place] cap, l mg oral 00:54: Route: PO, Herm leanna capsule 00 Drug form: CAP, BID, Start date: 10/07/11 18:54:00, Duration: 30 day, Stop date: 11/06/11 17:00:00 Restoril 2010-11 No Tomas L 15 mg, 1 Me moria -29 [place] cap, l 00:53: Route: PO, Benedict 00 Drug form: CAP, Bedtime, PRN Sleep, Start date: 10/07/11 18:53:00, Duration: 30 day, Stop date: 11/06/11 18:52:00 Tylenol 2010-11 No Tomas L 650 mg, 2 Me moria -29 [place] tab, l 00:53: Route: PO, Benedict 00 Drug form: TAB, Q4H, PRN Temperatur e >101.0, Start date: 10/07/11 18:53:00, Duration: 30 day, Stop date: 11/06/11 18:52:00 Restoril 2010-11 No Tomas L 15 mg, 1 Me moria 1-29 [place] cap, l 00:53: Route: PO, Benedict 00 Drug form: CAP, Bedtime, PRN Sleep, Start date: 10/07/11 18:53:00, Duration: 30 day, Stop date: 11/06/11 18:52:00 Tylenol 2010-11 No Tomas L 650 mg, 2 Me moria 1-29 [place] tab, l 00:53: Route: PO, Benedict 00 Drug form: TAB, Q4H, PRN Temperatur e >101.0, Start date: 10/07/11 18:53:00, Duration: 30 day, Stop date: 11/06/11 18:52:00 Restoril 2010-11 No Tomas L 15 mg, 1 Me moria 1-29 [place] cap, l 00:53: Route: PO, Zearing 00 Drug form: CAP, Bedtime, PRN Sleep, Start date: 10/07/11 18:53:00, Duration: 30 day, Stop date: 11/06/11 18:52:00 Tylenol 2010-11 No Tomas L 650 mg, 2 Me moria 1-29 [place] tab, l 00:53: Route: PO, Zearing 00 Drug form: TAB, Q4H, PRN Temperatur e >101.0, Start date: 10/07/11 18:53:00, Duration: 30 day, Stop date: 11/06/11 18:52:00 Phenergan 2010-11 No Tomas L 25 mg, 1 M emoria 1-29 [place] mL, Route: l 00:52: IM, Drug Zearing 00 form: INJ, Q6H, PRN Nausea, Start date: 10/07/11 18:52:00, Duration: 30 day, Stop date: 11/06/11 18:51:00 Zofran 2010-11 No Tomas L 4 mg, 2 Memor ia 1-29 [place] mL, Route: l 00:52: IVP, Drug Benedict 00 form: INJ, Q8H, PRN Nausea, Start date: 10/07/11 18:52:00, Duration: 30 day, Stop date: 11/06/11 18:51:00 Phenergan 2010-11 No Tomas L 25 mg, 1 M emoria 1-29 [place] mL, Route: l 00:52: IM, Drug Benedict 00 form: INJ, Q6H, PRN Nausea, Start date: 10/07/11 18:52:00, Duration: 30 day, Stop date: 11/06/11 18:51:00 Zofran 2010-11 No Tomas L 4 mg, 2 Memor ia 1-29 [place] mL, Route: l 00:52: IVP, Drug Zearing 00 form: INJ, Q8H, PRN Nausea, Start date: 10/07/11 18:52:00, Duration: 30 day, Stop date: 11/06/11 18:51:00 Phenergan 2010-11 No Tomas L 25 mg, 1 M emoria 1-29 [place] mL, Route: l 00:52: IM, Drug Benedict 00 form: INJ, Q6H, PRN Nausea, Start date: 10/07/11 18:52:00, Duration: 30 day, Stop date: 11/06/11 18:51:00 Zofran 2010-11 No Tomas L 4 mg, 2 Memor ia 1-29 [place] mL, Route: l 00:52: IVP, Drug Benedict 00 form: INJ, Q8H, PRN Nausea, Start [...] Limited # of times morphine 2010-11 No Tomsa L 8 mg, 2 Mem oria Sulfate 1-29 [place] mL, Route: l 00:48: IM, Drug Zearing form: INJ, Q4H, PRN Pain, Start date: 10/07/11 18:48:00, Duration: 30 day, Stop date: 11/06/11 18:47:00 morphine 2010-11 No Tomas L 8 mg, 2 Mem oria Sulfate 1-29 [place] mL, Route: l 00:48: IM, Drug Zearing form: INJ, Q4H, PRN Pain, Start date: 10/07/11 18:48:00, Duration: 30 day, Stop date: 11/06/11 18:47:00 morphine 2010-11 No Tomas L 8 mg, 2 Mem oria Sulfate 1- [place] mL, Route: l 00:48: IM, Drug Zearing 00 form: INJ, Q4H, PRN Pain, Start date: 10/07/11 18:48:00, Duration: 30 day, Stop date: 11/06/11 18:47:00 acetaminoph 2010-11 No Tomas L 2 tab, M emoria en-hydrocod 1-29 [place] Route: PO, l one 325 00:46: Drug Form: Herm leanna mg-5 mg 00 TAB, Q4H, oral tablet PRN Pain, Start date: 10/07/11 18:46:00, Duration: 30 day, Stop date: 11/06/11 18:45:00 acetaminoph 2010-11 No Tomas L 2 tab, M emoria en-hydrocod 1-29 [place] Route: PO, l one 325 00:46: Drug Form: Herm leanna mg-5 mg 00 TAB, Q4H, oral tablet PRN Pain, Start date: 10/07/11 18:46:00, Duration: 30 day, Stop date: 11/06/11 18:45:00 acetaminoph 2010-11 No Tomas L 2 tab, M emoria en-hydrocod - [place] Route: PO, l one 325 00:46: Drug Form: Herm leanna mg-5 mg 00 TAB, Q4H, oral tablet PRN Pain, Start date: 10/07/11 18:46:00, Duration: 30 day, Stop date: 11/06/11 18:45:00 acetaminoph 2010-11 No Tomas L 1 tab, M emoria en-hydrocod 1-29 [place] Route: PO, l one 325 00:45: Drug Form: Herm leanna mg-5 mg 00 TAB, Q4H, oral tablet PRN Pain, Start date: 10/07/11 18:45:00, Duration: 30 day, Stop date: 11/06/11 18:44:00 acetaminoph 2010-11 No Tomas L 1 tab, M emoria en-hydrocod 1-29 [place] Route: PO, l one 325 00:45: Drug Form: Herm leanna mg-5 mg 00 TAB, Q4H, oral tablet PRN Pain, Start date: 10/07/11 18:45:00, Duration: 30 day, Stop date: 11/06/11 18:44:00 acetaminoph 2010-11 No Tomas L 1 tab, M emoria en-hydrocod 1-29 [place] Route: PO, l one 325 00:45: Drug Form: Herm leanna mg-5 mg 00 TAB, Q4H, oral tablet PRN Pain, Start date: 10/07/11 18:45:00, Duration: 30 day, Stop date: 11/06/11 18:44:00 Dextrose 5% 2010-11 No Tomas L 1,000 mL, Memoria with 0.9% 1-29 [place] Rate: 100 l NaCl IV 00:44: ml/hr, Zearing 1,000 mL 00 Infuse over: 10 hr, Route: IV, Total Volume: 1,000, Start date: 10/07/11 18:44:00, Duration: 30 day, Stop date: 11/06/11 18:43:00 Dextrose 5% 2010-11 No Tomas L 1,000 mL, Memoria with 0.9% 1-29 [place] Rate: 100 l NaCl IV 00:44: ml/hr, Zearing 1,000 mL 00 Infuse over: 10 hr, Route: IV, Total Volume: 1,000, Start date: 10/07/11 18:44:00, Duration: 30 day, Stop date: 11/06/11 18:43:00 Dextrose 5% 2010-11 No Tomas L 1,000 mL, Memoria with 0.9% 1-29 [place] Rate: 100 l NaCl IV 00:44: ml/hr, Zearing 1,000 mL 00 Infuse over: 10 hr, Route: IV, Total Volume: 1,000, Start date: 10/07/11 18:44:00, Duration: 30 day, Stop date: 11/06/11 18:43:00 Dilaudid 2010-11 No [place] I 0.5 mg, Me moria 12-07 Ankita Route: IV, l 22:05: ONCE, Zearing 00 Start date: 10/07/11 16:05:00, Stop date: 10/07/11 16:05:00 Dilaudid 2010-11 No [place] I 0.5 mg, Me moria 12-07 Ankita Route: IV, l 22:05: ONCE, Start date: 10/07/11 16:05:00, Stop date: 10/07/11 16:05:00 Dilaudid 2010-11 No [place] I 0.5 mg, Me moria 12-07 Ankita Route: IV, l 22:05: ONCE, Benedict 00 Start date: 10/07/11 16:05:00, Stop date: 10/07/11 16:05:00 ropivacaine 2010-11 No Tomas L 800 mg, Memoria 0.2% 800 mg 12-07 Likover 400 mL, 10 l 22:00: ml/hr, Zearing 00 Route: NERVE BLOCK, Drug Form: INJ, Start date: 10/07/11 16:00:00, Duration: 30 day, Stop date: 11/06/11 15:59:00 ropivacaine 2010-11 No Tomas L 800 mg, Memoria 0.2% 800 mg 12-07 Likover 400 mL, 10 l 22:00: ml/hr, Route: NERVE BLOCK, Drug Form: INJ, Start date: 10/07/11 16:00:00, Duration: 30 day, Stop date: 11/06/11 15:59:00 ropivacaine 2010-11 No Tomas L 800 mg, Memoria 0.2% 800 mg 12-07 Likover 400 mL, 10 l 22:00: ml/hr, Route: NERVE BLOCK, Drug Form: INJ, Start [...] Tomas L 1,000 mL, Memoria with 0.9% 12-07 Likover Rate: 100 l NaCl IV 21:44: ml/hr, Zearing 1,000 mL 00 Infuse over: 10 hr, Route: IV, Total Volume: 1,000, Start date: 10/07/11 15:44:00, Duration: 30 day, Stop date: 11/06/11 15:43:00 Dextrose 5% 2010-11 No Tomas L 1,000 mL, Memoria with 0.9% 1-28 Likover Rate: 100 l NaCl IV 21:44: ml/hr, Zearing 1,000 mL 00 Infuse over: 10 hr, [...] Likover mL, Route: l 12:00: IVPB, Drug Benedict 00 form: INJ, ONCALL, Start date: 10/07/11 6:00:00, Duration: 1 doses or times, Stop date: 10/07/11 23:00:00 cefazolin 2010-11 No Tomas L 2 gm, 100 Memoria 1-28 Likover mL, Route: l 12:00: IVPB, Drug Benedict 00 form: INJ, ONCALL, Start date: 10/07/11 6:00:00, Duration: 1 doses or times, Stop date: 10/07/11 23:00:00 cefazolin 2010-11 No Tomas L 2 gm, 100 Memoria 1-28 Likover mL, Route: l 12:00: IVPB, Drug Zearing 00 form: INJ, ONCALL, Start date: 10/07/11 6:00:00, Duration: 1 doses [...] DENTAL TO DENTAL APPOINTMENT APPOINTMENT APPOINTMEN T Wingina Wingina No Wingina Marli Thyroid 60 Thyroid 60 Thyroid 60 [...] MD by other MD by other Sports Medicin e prednisone prednisone No prednisone Marli [...] DENTAL TO DENTAL APPOINTMENT APPOINTMENT APPOINTMEN T Wingina Wingina No Wingina Marli Thyroid 60 Thyroid 60 Thyroid 60 [...] DENTAL TO DENTAL APPOINTMENT APPOINTMENT APPOINTMEN T Wingina Wingina No Wingina Marli Thyroid 60 Thyroid 60 Thyroid 60 [...] DENTAL TO DENTAL APPOINTMENT APPOINTMENT APPOINTMEN T Wingina Wingina No Wingina Marli Thyroid 60 Thyroid 60 Thyroid 60 [...] Source Systolic (mm Hg) 2023-02-27 15:22:00 Louis rial Zearing Diastolic (mm Hg) 2023-02-27 15:22:00 Mem orial Benedict Heart Rate 2023-02-27 15:22:00 [facility] Height 2023-02-27 15:22:00 5 [ft_i] [facility] Weight 2023-02-27 15:22:00 [facility] BMI Calculated 2023-02-27 15:22:00 Memori al Zearing Systolic (mm Hg) 2022-08-29 14:57:00 Louis rial Zearing Diastolic (mm Hg) 2022-08-29 14:57:00 Mem orial Zearing Heart Rate 2022-08-29 14:57:00 [facility] Height 2022-08-29 14:57:00 5 [ft_i] [facility] Weight 2022-08-29 14:57:00 [facility] BMI Calculated 2022-08-29 14:57:00 Memori al Benedict Systolic (mm Hg) 2022-05-31 13:31:00 Louis rial Benedict Diastolic (mm Hg) 2022-05-31 13:31:00 Mem orial Zearing Heart Rate 2022-05-31 13:31:00 [facility] Z[place] Respitory Rate 2022-05-31 13:31:00 Memori al [place] Height 2022-05-31 13:31:00 154.94 cm [facility] Benedict Weight 2022-05-31 13:31:00 [facility] Benedict BMI Calculated 2022-05-31 13:31:00 Memori al Benedict Systolic (mm Hg) 2022-04-26 19:18:00 Louis rial Benedict Diastolic (mm Hg) 2022-04-26 19:18:00 Mem orial Benedict Heart Rate 2022-04-26 19:18:00 Memorial Z[place] Respitory Rate 2022-04-26 19:18:00 Memori al [place] Height 2022-04-26 19:18:00 154.94 cm [facility] Benedict Weight 2022-04-26 19:18:00 [facility] [place] BMI Calculated 2022-04-26 19:18:00 Memori al Benedict Respitory Rate 2015-05-20 01:03:00 Memori al [place] Systolic (mm Hg) 2015-05-20 01:03:00 Louis rial Zearing Diastolic (mm Hg) 2015-05-20 01:03:00 Mem orial Zearing BMI Calculated 2015-05-19 22:42:00 Memori al Benedict Weight 2015-05-19 22:42:00 Memorial [place] Height 2015-05-19 22:42:00 162.56 cm [facility] Benedict Systolic (mm Hg) 2015-05-19 22:42:00 Louis rial Zearing Diastolic (mm Hg) 2015-05-19 22:42:00 Mem orial Zearing Respitory Rate 2015-05-19 22:42:00 Memori al Benedict Heart Rate 2015-05-19 22:42:00 Memorial Zearing Heart Rate 2011-10-10 14:00:00 [facility] Benedict Temperature Oral (F) 2011-10-10 14:00:00 97.7 F [facility] Benedict Diastolic (mm Hg) 2011-10-10 14:00:00 Mem orial Benedict Systolic (mm Hg) 2011-10-10 14:00:00 Louis rial Benedict Respitory Rate 2011-10-10 14:00:00 Memori al Benedict Diastolic (mm Hg) 2011-10-10 09:16:00 Mem orial Zearing Systolic (mm Hg) 2011-10-10 09:16:00 Louis rial Benedict Temperature Oral (F) 2011-10-10 09:16:00 97.7 F Memorial Zearing Heart Rate 2011-10-10 09:16:00 Memorial Z[place] Respitory Rate 2011-10-10 09:16:00 Memori al Zearing Systolic (mm Hg) 2011-10-10 06:26:00 Louis rial Benedict Diastolic (mm Hg) 2011-10-10 06:26:00 Mem orial Benedict Temperature Oral (F) 2011-10-10 06:26:00 98.3 F Memorial Z[place] Respitory Rate 2011-10-10 06:26:00 Memori al Benedict Heart Rate 2011-10-10 06:26:00 [facility] Zearing Weight 2011-10-07 23:04:00 [facility] Height 2011-10-07 23:04:00 160.02 cm Memorial Z[place] Weight 2011-10-03 00:12:00 [facility] Z[place] Height 2011-10-03 00:12:00 161.29 cm [facility] Procedures Procedure Date / Time Performing Clinician Source Performed XR, foot, 2 view 2022-09-11 00:00:00 [facility]li [facility] XR, foot, 2 view 2022-08-06 [...] Orthopedi c Sports Medicine Neurectomy of intrinsic [facility] muscle of foot [facility] knee<sup>1</sup> Tonsillectomy [facility] Shoulder [facility] repair<sup>3</sup> Hysterectomy<sup>2</sup> Memoria l Benedict section [facility] Plan of Care Planned Activity Planned Date Details Comments Source Instructions Marli Orthoped [facility] Sports Medicine Encounters Start End Encounter Admission Attending Care Care Encounter Source Date/Time Date/Time Type Type Clinicians Facility Department ID 2023-02-27 2023-02-28 Outpatient MHIE MNA [id number] Memoria 15:15:00 04:59:59 Neurology 03 armin Mcmullen 2023-02-27 2023-02-28 Outpatient MHIE MNA [id number] Memoria 15:15:00 04:59:59 Neurology 03 l Luz Marina Benedict 2023-02-27 2023-02-27 Outpatient Humaira [facility] [id number] 10:15:00 23:59:59 Jaime Jamilah Castaneda 2023-02-27 2023-02-27 Outpatient MHIE MHIE [id number] Memoria 10:15:00 10:15:00 03 armin Benedict 2022-12-17 2022-12-17 Tim Vera AOS[facility] [place] - Orth[place] [id number] Marli 00:00:00 00:00:00 Ruthie Gonsalez MD: [id number] [facility], [place] [address] , Ph. [phone] 2022-09-11 2022-09-11 Outpatient FOG_[place]_ AOSM AOSM [id number] Marli 00:00:00 00:00:00 Harlan [id number] Ortho pe dic [facility] Medicin e 2022-09-11 2022-09-11 Outpatient FOG_[place]_ AOSM AOSM [id number] Marli 00:00:00 00:00:00 Harlan [id number] Ortho pe dic Sports Medicin e 2022-09-11 2022-09-11 Outpatient FOG_[place]_ AOSM AOSM [id number] Marli 00:00:00 00:00:00 Harlan [id number] Ortho pe dic Sports Medicin e 2022-09-11 2022-09-11 Outpatient FOG_[place]_ AOSM AOSM [id number] Marli 00:00:00 00:00:00 Harlan [id number] Ortho pe dic Sports Medicin e 2022-09-11 2022-09-11 Tim Vera [place] [place] - [place] [id number] Marli 00:00:00 00:00:00 Ruthie Gonsalez MD: [id number] [facility] [place] [address] , Ph. [phone] 2022-09-10 2022-09-10 Outpatient FOG_[place]_ AOSM AOSM [id number] Marli 00:00:00 00:00:00 Harlan [id number] Ortho pe dic [facility] Medicin e 2022-08-29 2022-08-30 Outpatient nullFlavo MNA [id number] Memoria 14:30:00 04:59:59 r Neurology 02 l [place] 2022-08-29 2022-08-30 Outpatient nullFlavo MNA [id number] Memoria 14:30:00 04:59:59 r Neurology 02 l Luz Marina Mcmullen 2022-08-29 2022-08-29 Outpatient JALYN Gerardo [facility] [id number] 09:30:00 23:59:59 Jaime 02 Leonel 2022-08-29 2022-08-29 Outpatient MHIE IE [id number] Memoria 09:30:00 09:30:00 02 armin Mcmullen 2022-08-26 2022-08-26 Outpatient SHERRON EnglandTO DAYS [id number] [facility] 06:57:00 06:57:00 [facility] 2022-08-26 2022-08-26 Outpatient FOG_[place]_ AOSM AOSM [id number] Marli 00:00:00 00:00:00 Harlan [id number] Ortho pe dic Sports Medicin e 2022-08-26 2022-08-26 Tim Vera [place] [place] - [place] [id number] Marli 00:00:00 00:00:00 Ruthie Gonsalez MD: [id number] FOG_Surgery dic [facility] [address] , Ph. [phone] 2022-08-20 2022-08-20 Outpatient FOG_[place]_ AOSM AOSM [id number] Marli 00:00:00 00:00:00 Harlan [id number] Ortho pe dic Sports Medicin e 2022-08-13 2022-08-13 Outpatient FOG_[place]_ AOSM AOSM [id number] Marli 00:00:00 00:00:00 Harlan [id number] Ortho pe dic Sports Medicin e 2022-08-06 2022-08-06 Outpatient FOG_[place]_ AOSM AOSM [id number] Marli 00:00:00 00:00:00 Harlan [id number] Ortho pe dic Sports Medicin e 2022-08-06 2022-08-06 Tim Vera [place] [place] - [place] [id number] Marli 00:00:00 00:00:00 Ruthie Gonsalez MD: [id number] [facility] [place] [address] , Ph. [phone] 2022-08-02 2022-08-02 Outpatient FOG_[place]_ AOSM AOSM [id number] Marli 00:00:00 00:00:00 Harlan [id number] Ortho pe dic Sports Medicin e 2022-07-22 2022-07-22 Outpatient FOG_[place]_ AOSM AOSM [id number] Marli 00:00:00 00:00:00 Harlan [id number] Ortho pe dic Sports Medicin e 2022-05-31 2022-06-01 Outpatient nullFlavo MNA [id number] Memoria 13:15:00 04:59:59 r Neurology 01 l Luz Marina Mcmullen 2022-05-31 2022-06-01 Outpatient nullFlavo MNA [id number] Memoria 13:15:00 04:59:59 r Neurology 01 l Luz Marina Mcmullen 2022-05-31 2022-05-31 Outpatient JALYN Gerardo [facility] [id number] 08:15:00 23:59:59 Jaime Morgan Castaneda 2022-05-31 2022-05-31 Outpatient MHIE MHIE [id number] Memoria 08:15:00 08:15:00 01 armin Mcmullen 2022-04-26 2022-04-27 Outpatient nullFlavo MNA [id number] Memoria 19:15:00 04:59:59 r Neurology 00 l Luz Marina Mcmullen 2022-04-26 2022-04-27 Outpatient nullFlavo MNA [id number] Memoria 19:15:00 04:59:59 r Neurology 00 l Luz Marina Turnerann 2022-04-26 2022-04-26 Outpatient HumairaSOLOMISCHER SOLOMISCHER [id number] 14:15:00 23:59:59 Jaime David Castaneda 2022-04-26 2022-04-26 Outpatient MHIE MHIE [id number] Memoria 14:15:00 14:15:00 00 l Benedict 2021-01-13 2021-01-13 Outpatient [facility] [id number] [facility] 09:15:00 09:15:00 [facility] 2020-12-16 2020-12-16 Outpatient [facility] [id number] Univers 08:40:00 08:40:00 [facility] 2015-05-19 2015-05-20 nullFlavo [facility] [id number] Memoria 22:30:00 01:41:00 Emergency r Benedict The [address] [facility] 2015-05-19 2015-05-20 EC nullFlavo [facility] [id number] Memoria 22:30:00 01:41:00 Emergency r Benedict The [address] [facility] 2015-05-19 2015-05-19 Outpatient Jay, 2.16.840. 2.16.840.1 . [id number] 17:30:00 20:41:00 Phil [id number] 01 Mary [id number] 86 7036-12-01 2014-10-11 Outpatient nullFlavo [facility] [id number] Memoria 16:51:00 05:59:00 r Benedict 35 [facility] 2014-10-10 2014-10-11 Outpatient nullFlavo [facility] [id number] Memoria 16:51:00 05:59:00 r Zearing 35 [facility] 2014-10-10 2014-10-10 Outpatient Yuliana, 2.16.840. 2.16.840.1. [id number] 10:51:00 23:59:00 Tomas Gonzalez [id number] [id number] 77 1072-12-02 2013-10-11 Outpatient 2.16.840. 2.16.840.1. [id number] Memoria 10:15:00 23:59:00 [id number] l 3.615.0.1 5.0.100 [place] 00 Memoria [facility] 2013-10-11 2013-10-11 Outpatient nullFlavo MH [facility] 3 [id number] Memoria 10:15:00 10:15:00 r [facility] 36 [facility] 2013-10-11 2013-10-11 Outpatient nullFlavo MH [facility] 3 [id number] Memoria 10:15:00 10:15:00 r [facility] 36 [facility] 2012-10-05 2012-10-05 Outpatient nullFlavo MH [facility] 3 [id number] Memoria 10:50:00 10:50:00 r [facility] 31 [facility] 2012-10-05 2012-10-05 Outpatient nullFlavo [facility] 3 [id number] Memoria 10:50:00 10:50:00 r [facility] 31 [facility] 2011-10-24 2011-10-24 Outpatient nullFlavo [facility] 3 [id number] Memoria 13:38:00 13:38:00 r [facility] 49 armin Zearing 2011-10-24 2011-10-24 Outpatient nullFlavo MH [facility] 3 [id number] Memoria 13:38:00 13:38:00 r [facility] 49 armin Zearing 2011-10-07 2011-10-10 Inpatient nullFlavo MH [facility] 39 [id number] Memoria 11:03:00 12:15:00 r [facility] 00 armin Zearing 2011-10-07 2011-10-10 Inpatient nullFlavo MH [facility] 39 [id number] Memoria 11:03:00 12:15:00 r [facility] 00 armin Zearing 2011-08-27 2011-08-27 Outpatient nullFlavo MH [facility] 3 [id number] Memoria 14:20:00 14:21:00 r [facility] 91 [facility] 2011-08-27 2011-08-27 Outpatient nullFlavo MH [facility] 3 [id number] Memoria 14:20:00 14:21:[address] Results Test Description Test Time Test Comments Results Result Comments Source HEMATOLOGY 2015-05-19 23:27:00 Test Item Value Reference Range Interpretation Comme nts Eosinophils # (test code = 0.1 See_Comment [Automated message] The system Eosinophils #) which generat ed this result transmitted ref erence range: <=0.5. The reference r bianka was not used to interpret this result as normal/abnormal . [facility]czpxozFEJRKZOFWK6207-26-42 23:27:00 Test Item Value Reference Range Interpretation Comments Monocytes # (test code 0.8 See_Comment [Aut omated message] The = Monocytes #) system which generated this result tra nsmitted reference range : <=0.8. The reference r bianka was not used to int erpret this result as normal/abnormal . [facility] RenaissanceGjtiexbCIVJAVAUJV8435-99-19 23:27:00 Test Item Value Reference Range Interpretation Comments Lymphocytes (test code = Lymphocytes) 18.5 20.0-40.0 [facility] RenaissanceXlxgeamLVIYXLSLEL8412-12-82 23:27:00 Test Item Value Reference Range Interpretation Comments Segs (test code = Segs) 74.0 45.0-75.0 [facility] RenaissanceAarwjldMUYLESTJAX5443-92-37 23:27:00 Test Item Value Reference Range Interpretation Comments PT (test code = PT) 13.0 s 12.0-14.7 [facility] RenaissanceNoixvjkFGOTGVIONB7066-14-82 23:27:00 Test Item Value Reference Range Interpretation Comments INR (test code = INR) 0.98 0.85-1.17 [place] 184515-07-10 23:27:00 Test Item Value Reference Range Interpretation Comments RBC (test code = RBC) 3.89 4.20-5.40 [facility] RenaissanceYcacufeNZYEWABQJS7703-49-07 23:27:00 Test Item Value Reference Range Interpretation Comments WBC (test code = WBC) 12.6 3.7-10.4 [facility] RenaissanceEfbscwjOAGIPCXOIZ8572-23-13 23:27:00 Test Item Value Reference Range Interpretation Comments RDW (test code = RDW) 14.0 11.5-14.5 [facility] RenaissanceYuujhpmIWOZXBWLOB4900-18-72 23:27:00 Test Item Value Reference Range Interpretation Comments MCHC (test code = MCHC) 32.7 32.0-36.0 [facility] RenaissanceWqxscegSKPEDSISNQ9707-35-76 23:27:00 Test Item Value Reference Range Interpretation Comments MCH (test code = MCH) 31.0 pg 27.0-31.0 [facility] RenaissanceBgcigfrDFLDSBLHXC6000-18-01 23:27:00 Test Item Value Reference Range Interpretation Comments Hct (test code = Hct) 37.0 36.0-48.0 [facility] RenaissanceSgfhbbbNVTHSRJWNL5658-69-73 23:27:00 Test Item Value Reference Range Interpretation Comments MCV (test code = MCV) 94.9 80.0-98.0 [facility] RenaissancePiiyiqvGLQAKHYALJ8355-66-56 23:27:00 Test Item Value Reference Range Interpretation Comments Hgb (test code = Hgb) 12.1 12.0-16.0 [facility] RenaissanceJuxzbesIGGGUONCID8537-27-41 23:27:00 Test Item Value Reference Range Interpretation Comments Platelet (test code = Platelet) 177 133-450 [facility] RenaissanceCcyyxljKVZIEILLUM2314-72-73 23:27:00 Test Item Value Reference Range Interpretation Comments MPV (test code = MPV) 9.5 7.4-10.4 [facility] RenaissanceUkqqmrhWCHXBBATNB0471-90-31 23:27:00 Test Item Value Reference Range Interpretation Comments Lymphocytes # (test code = Lymphocytes 2.3 1.0-5.5 #) [facility] RenaissanceFticarpAXLEHIWYCT2079-65-42 23:27:00 Test Item Value Reference Range Interpretation Comments Segs-Bands # (test code = Segs-Bands #) 9.3 1.5-8.1 [facility] RenaissanceHsycljoZNBKBHYUUN3590-32-68 23:27:00 Test Item Value Reference Range Interpretation Comments Basophils # (test code 0.0 See_Comment [Aut omated message] The = Basophils #) system which generated this result tra nsmitted reference range : <=0.2. The reference r bianka was not used to int erpret this result as normal/abnormal . [facility] RenaissanceHqlcowzHQYVCPKEHM4471-47-01 23:27:00 Test Item Value Reference Range Interpretation Comments Eosinophils (test code = 0.6 See_Comment [A utomated message] The Eosinophils) system which ge nerated this result tra nsmitted reference range : <=4.0. The reference r bianka was not used to int erpret this result as normal/abnormal . [place] 184515-07-10 23:27:00 Test Item Value Reference Range Interpretation Comments Basophils (test code = 0.3 See_Comment [Aut omated message] The Basophils) system which ge nerated this result tra nsmitted reference range : <=1.0. The reference r bianka was not used to int erpret this result as normal/abnormal . [facility] RenaissanceElocqjtXCUCNCYXFY2300-13-76 23:27:00 Test Item Value Reference Range Interpretation Comments Monocytes (test code = Monocytes) 6.6 2.0-12.0 [facility] RenaissanceZjrwsoxTGDWAVADEM3172-95-84 23:27:00 Test Item Value Reference Range Interpretation Comments Eosinophils # (test code 0.1 See_Comment [A utomated message] The = Eosinophils #) system whic h generated this result tra nsmitted reference range : <=0.5. The reference r bianka was not used to int erpret this result as normal/abnormal . [facility] RenaissanceGejmhonQLAHLLTALR0212-36-80 23:27:00 Test Item Value Reference Range Interpretation Comments Monocytes # (test code 0.8 See_Comment [Aut omated message] The = Monocytes #) system which generated this result tra nsmitted reference range : <=0.8. The reference r bianka was not used to int erpret this result as normal/abnormal . [facility] RenaissanceQmrvosmASLYKULISY0260-35-23 23:27:00 Test Item Value Reference Range Interpretation Comments Lymphocytes (test code = Lymphocytes) 18.5 20.0-40.0 [facility] RenaissanceTofvhstASYYUWIBVY8293-99-43 23:27:00 Test Item Value Reference Range Interpretation Comments Segs (test code = Segs) 74.0 45.0-75.0 [facility] RenaissancePtxvucpOUJPCVLSFA7957-23-66 23:27:00 Test Item Value Reference Range Interpretation Comments PT (test code = PT) 13.0 s 12.0-14.7 [facility] RenaissanceNbnyhazWHGMUVPLRS4435-98-24 23:27:00 Test Item Value Reference Range Interpretation Comments INR (test code = INR) 0.98 0.85-1.17 [facility] RenaissanceBwlzdcaQZDUBGGHCC2727-45-45 23:27:00 Test Item Value Reference Range Interpretation Comments RBC (test code = RBC) 3.89 4.20-5.40 [facility] RenaissanceEkikodiPDDHOZTJGK1439-34-38 23:27:00 Test Item Value Reference Range Interpretation Comments WBC (test code = WBC) 12.6 3.7-10.4 [facility] RenaissanceCmpqqjpLUDBXXEIVZ0746-97-39 23:27:00 Test Item Value Reference Range Interpretation Comments RDW (test code = RDW) 14.0 11.5-14.5 [facility] RenaissanceIowrivnFHGVXTZSZG4085-81-31 23:27:00 Test Item Value Reference Range Interpretation Comments MCHC (test code = MCHC) 32.7 32.0-36.0 [facility] RenaissanceSbzdcqhCSBVCNXRDB0887-02-35 23:27:00 Test Item Value Reference Range Interpretation Comments MCH (test code = MCH) 31.0 pg 27.0-31.0 [facility] RenaissanceGkxjjbmZBODSAPKOX9899-31-15 23:27:00 Test Item Value Reference Range Interpretation Comments Hct (test code = Hct) 37.0 36.0-48.0 [facility] RenaissanceZpyfmejXOHOJJNPUN9132-10-71 23:27:00 Test Item Value Reference Range Interpretation Comments MCV (test code = MCV) 94.9 80.0-98.0 [facility] RenaissanceXffqtlcEUUTARFAXZ8430-48-14 23:27:00 Test Item Value Reference Range Interpretation Comments RBC (test code = RBC) 3.89 4.20-5.40 [facility] RenaissanceXldxawnQRTRQEQPUA1402-76-13 23:27:00 Test Item Value Reference Range Interpretation Comments WBC (test code = WBC) 12.6 3.7-10.4 [facility] RenaissanceBcowgogIBRSJESEEW5347-34-95 23:27:00 Test Item Value Reference Range Interpretation Comments RDW (test code = RDW) 14.0 11.5-14.5 [facility] RenaissanceQtqyeehYDEVXKJNNH8848-87-60 23:27:00 Test Item Value Reference Range Interpretation Comments MCHC (test code = MCHC) 32.7 32.0-36.0 [facility] RenaissanceJweoxuhONVYHNTGFV2154-86-71 23:27:00 Test Item Value Reference Range Interpretation Comments MCH (test code = MCH) 31.0 pg 27.0-31.0 [facility] RenaissanceXnofwnqLWJEKJYWVK1090-76-58 23:27:00 Test Item Value Reference Range Interpretation Comments Hct (test code = Hct) 37.0 36.0-48.0 [facility] RenaissanceHkxjbdvAMNXDTQGUC0094-87-86 23:27:00 Test Item Value Reference Range Interpretation Comments MCV (test code = MCV) 94.9 80.0-98.0 [facility] RenaissanceShztvvuUDJZHPZHLJ4878-48-69 23:27:00 Test Item Value Reference Range Interpretation Comments Hgb (test code = Hgb) 12.1 12.0-16.0 [facility] RenaissanceGjbrgpjOGUJBHKQUR6733-94-28 23:27:00 Test Item Value Reference Range Interpretation Comments Platelet (test code = Platelet) 177 133-450 [facility] RenaissanceAmetnerGOYCISBSEL4241-49-87 23:27:00 Test Item Value Reference Range Interpretation Comments MPV (test code = MPV) 9.5 7.4-10.4 [facility] RenaissanceGldudetRSGYNWREDB7895-22-17 23:27:00 Test Item Value Reference Range Interpretation Comments Lymphocytes # (test code = Lymphocytes 2.3 1.0-5.5 #) [facility] RenaissanceAclrsqlGBJGYKOXUB2934-91-21 23:27:00 Test Item Value Reference Range Interpretation Comments Segs-Bands # (test code = Segs-Bands #) 9.3 1.5-8.1 [facility] RenaissanceKptqcupFCEADOGWJI2110-86-84 23:27:00 Test Item Value Reference Range Interpretation Comments Basophils # (test code 0.0 See_Comment [Aut omated message] The = Basophils #) system which generated this result tra nsmitted reference range : <=0.2. The reference r bianka was not used to int erpret this result as normal/abnormal . [facility] RenaissanceTnrbtnlEMMITUAEOX8614-19-12 23:27:00 Test Item Value Reference Range Interpretation Comments Eosinophils (test code = 0.6 See_Comment [A utomated message] The Eosinophils) system which ge nerated this result tra nsmitted reference range : <=4.0. The reference r bianka was not used to int erpret this result as normal/abnormal . [facility] [facility]YuwzneqGNPQZRVHEQ9595-00-49 23:27:00 Test Item Value Reference Range Interpretation Comments Basophils (test code = 0.3 See_Comment [Aut omated message] The Basophils) system which ge nerated this result tra nsmitted reference range : <=1.0. The reference r bianka was not used to int erpret this result as normal/abnormal . [facility]JyyxgqjCXHEAHOIWG3326-31-18 23:27:00 Test Item Value Reference Range Interpretation Comments Monocytes (test code = Monocytes) 6.6 2.0-12.0 [facility] RenaissanceBjdafwnEGIXAHUXSZ8048-20-37 23:27:00 Test Item Value Reference Range Interpretation Comments Eosinophils # (test code 0.1 See_Comment [A utomated message] The = Eosinophils #) system whic h generated this result tra nsmitted reference range : <=0.5. The reference r bianka was not used to int erpret this result as normal/abnormal . [facility] RenaissanceCyomespCIFCSHOFCY4387-03-17 23:27:00 Test Item Value Reference Range Interpretation Comments Monocytes # (test code 0.8 See_Comment [Aut omated message] The = Monocytes #) system which generated this result tra nsmitted reference range : <=0.8. The reference r bianka was not used to int erpret this result as normal/abnormal . [facility] RenaissanceIhcvvdqLSKJAWHQQL2989-59-06 23:27:00 Test Item Value Reference Range Interpretation Comments Lymphocytes (test code = Lymphocytes) 18.5 20.0-40.0 [facility] RenaissanceCfjwiwlLIWMGDCVWY7188-40-31 23:27:00 Test Item Value Reference Range Interpretation Comments Segs (test code = Segs) 74.0 45.0-75.0 [facility] RenaissanceDqoqqeoKIFJTDPMND6273-63-02 23:27:00 Test Item Value Reference Range Interpretation Comments PT (test code = PT) 13.0 s 12.0-14.7 [facility] RenaissanceHtsghvjMELRAGVIXU8461-27-61 23:27:00 Test Item Value Reference Range Interpretation Comments INR (test code = INR) 0.98 0.85-1.17 [facility] RenaissanceHjppqjnRMGIDCXEHB5289-56-98 23:27:00 Test Item Value Reference Range Interpretation Comments Hgb (test code = Hgb) 12.1 12.0-16.0 [facility] RenaissanceEippfhfVUVFDXYQHZ1206-94-53 23:27:00 Test Item Value Reference Range Interpretation Comments Platelet (test code = Platelet) 177 133-450 [facility] RenaissanceSjychkkRMVQAXMSDJ5597-33-71 23:27:00 Test Item Value Reference Range Interpretation Comments MPV (test code = MPV) 9.5 7.4-10.4 [facility] RenaissanceJpjfgnbUHLEMLTILD7816-70-65 23:27:00 Test Item Value Reference Range Interpretation Comments Lymphocytes # (test code = Lymphocytes 2.3 1.0-5.5 #) [facility] RenaissanceUtlaobtAHQCMWOEBJ8925-51-27 23:27:00 Test Item Value Reference Range Interpretation Comments Segs-Bands # (test code = Segs-Bands #) 9.3 1.5-8.1 [facility] RenaissanceJwmgyfhTYNDVLSOUI5948-59-91 23:27:00 Test Item Value Reference Range Interpretation Comments Basophils # (test code 0.0 See_Comment [Aut omated message] The = Basophils #) system which generated this result tra nsmitted reference range : <=0.2. The reference r bianka was not used to int erpret this result as normal/abnormal . [facility] RenaissanceHwxuyehCETGDTWZYB3360-10-13 23:27:00 Test Item Value Reference Range Interpretation Comments Eosinophils (test code = 0.6 See_Comment [A utomated message] The Eosinophils) system which ge nerated this result tra nsmitted reference range : <=4.0. The reference r bianka was not used to int erpret this result as normal/abnormal . [facility] RenaissanceYdbhsbhZFXEHFBMRS9738-63-25 23:27:00 Test Item Value Reference Range Interpretation Comments Basophils (test code = 0.3 See_Comment [Aut omated message] The Basophils) system which ge nerated this result tra nsmitted reference range : <=1.0. The reference r bianka was not used to int erpret this result as normal/abnormal . [facility] RenaissanceZvpxsuxXMCBGPXTHR7550-87-51 23:27:00 Test Item Value Reference Range Interpretation Comments Monocytes (test code = Monocytes) 6.6 2.0-12.0 [facility]UwctggzASGNADNCR3322-44-64 08:44:00 Test Item Value Reference Range Interpretation Comments Chloride Lvl (test code = Chloride Lvl) 106.0 95-109 N [facility]aVccwvkcHJYUIIZIQ9170-31-49 08:44:00 Test Item Value Reference Range Interpretation Comments CO2 (test code = CO2) 29.0 24-32 N [facility]aHgokmpxGULKWJHOX6188-95-61 08:44:00 Test Item Value Reference Range Interpretation Comments Calcium Lvl (test code = Calcium Lvl) 7.7 8.5-10.5 L [facility]aYyirpfbUAEOYBHAO3906-59-83 08:44:00 Test Item Value Reference Range Interpretation Comments AGAP (test code = AGAP) 9.5 10.0-20.0 L [facility]aKschxdqPGAJKFBTB4072-12-24 08:44:00 Test Item Value Reference Range Interpretation Comments Sodium Lvl (test code = Sodium Lvl) 141.0 135-145 N [facility]aHsegrbtAPHCTUDSL7848-29-56 08:44:00 Test Item Value Reference Range Interpretation Comments Potassium Lvl (test code = Potassium 3.5 3.5-5.1 N Lvl) [facility]aRkfjsreHQXSXMTIP0591-19-29 08:44:00 Test Item Value Reference Range Interpretation Comments BUN (test code = BUN) 7.0 7-22 N [facility]aZcsmkngIVGNPEJII1006-93-72 08:44:00 Test Item Value Reference Range Interpretation Comments Creatinine Lvl (test code = Creatinine 0.9 0.5-1.4 N Lvl) [facility]aCnactmlSLNDMHNVN7753-05-00 08:44:00 Test Item Value Reference Range Interpretation Comments Glucose Lvl (test code = Glucose Lvl) 108.0 [facility]aSrcoksaUBCRDDORD3148-46-69 08:44:00 Test Item Value Reference Range Interpretation Comments Chloride Lvl (test code = Chloride Lvl) 106.0 95-109 N [facility]aZrenmxaNCIFARFAW9901-13-41 08:44:00 Test Item Value Reference Range Interpretation Comments CO2 (test code = CO2) 29.0 24-32 N [facility]aSarmcqjLGLWZJXLB4372-41-38 08:44:00 Test Item Value Reference Range Interpretation Comments Calcium Lvl (test code = Calcium Lvl) 7.7 8.5-10.5 L [facility]aJyxfmbfKVTRYFDSF9889-93-20 08:44:00 Test Item Value Reference Range Interpretation Comments AGAP (test code = AGAP) 9.5 10.0-20.0 L [facility]aTslpfnrHGYFOFSYL5038-44-91 08:44:00 Test Item Value Reference Range Interpretation Comments Sodium Lvl (test code = Sodium Lvl) 141.0 135-145 N [facility]aYsyofclIBABLZBXX7357-98-60 08:44:00 Test Item Value Reference Range Interpretation Comments Potassium Lvl (test code = Potassium 3.5 3.5-5.1 N Lvl) [facility]aHighypuLIQDRHNBD1926-62-82 08:44:00 Test Item Value Reference Range Interpretation Comments BUN (test code = BUN) 7.0 7-22 N [facility]aCyknvthBDYDTVKUY1544-76-33 08:44:00 Test Item Value Reference Range Interpretation Comments Creatinine Lvl (test code = Creatinine 0.9 0.5-1.4 N Lvl) [facility]aOcgoejgZFKGHKKHQ2358-05-79 08:44:00 Test Item Value Reference Range Interpretation Comments Glucose Lvl (test code = Glucose Lvl) 108.0 [facility]aObvhgujFBEQQUKVC8242-90-91 08:44:00 Test Item Value Reference Range Interpretation Comments Chloride Lvl (test code = Chloride Lvl) 106.0 95-109 N [facility]aVjtchaoLOKUCMOYA1572-11-70 08:44:00 Test Item Value Reference Range Interpretation Comments CO2 (test code = CO2) 29.0 24-32 N [facility]aLkdlktjTWXYNBWRD3585-62-66 08:44:00 Test Item Value Reference Range Interpretation Comments Calcium Lvl (test code = Calcium Lvl) 7.7 8.5-10.5 L [facility]aQqdgwioOXAOJULGP4681-73-73 08:44:00 Test Item Value Reference Range Interpretation Comments AGAP (test code = AGAP) 9.5 10.0-20.0 L [facility]aAaistnhMMUDPFOPX0757-01-91 08:44:00 Test Item Value Reference Range Interpretation Comments Sodium Lvl (test code = Sodium Lvl) 141.0 135-145 N [facility]aItfbmkePYCAHIHOE2656-34-36 08:44:00 Test Item Value Reference Range Interpretation Comments Potassium Lvl (test code = Potassium 3.5 3.5-5.1 N Lvl) [facility]aNgaikzsGVFMQCASI9452-03-06 08:44:00 Test Item Value Reference Range Interpretation Comments BUN (test code = BUN) 7.0 7-22 N [facility]aFmwskfnDAADLNWOF4446-12-84 08:44:00 Test Item Value Reference Range Interpretation Comments Creatinine Lvl (test code = Creatinine 0.9 0.5-1.4 N Lvl) [facility]aOrqmqjsKNEYGZDMQ6947-80-67 08:44:00 Test Item Value Reference Range Interpretation Comments Glucose Lvl (test code = Glucose Lvl) 108.0 [facility]aLzyjddxRVLYEQUCB3291-44-07 10:10:00 Test Item Value Reference Range Interpretation Comments AGAP (test code = AGAP) 15.5 10.0-20.0 N [facility]aHhcsknjOZRBSSOQR0266-25-19 10:10:00 Test Item Value Reference Range Interpretation Comments Calcium Lvl (test code = Calcium Lvl) 7.8 8.5-10.5 L [facility]aUzozdirLSDDKJAMK2783-95-38 10:10:00 Test Item Value Reference Range Interpretation Comments Glucose Lvl (test code = Glucose Lvl) 101.0 [facility]aZvwzxfgKQJZJVBXZ8293-86-37 10:10:00 Test Item Value Reference Range Interpretation Comments Chloride Lvl (test code = Chloride Lvl) 106.0 95-109 N [facility]aLnparfmOWMXDKGJI5318-89-71 10:10:00 Test Item Value Reference Range Interpretation Comments CO2 (test code = CO2) 26.0 24-32 N [facility]aVhwecfeVMKLHFQKU0812-12-89 10:10:00 Test Item Value Reference Range Interpretation Comments Potassium Lvl (test code = Potassium 3.5 3.5-5.1 N Lvl) [facility]aEarchstSZWZZRWEG9367-60-82 10:10:00 Test Item Value Reference Range Interpretation Comments Creatinine Lvl (test code = Creatinine 0.8 0.5-1.4 N Lvl) [facility]aIohaxhyUIOAKDGKF9931-56-74 10:10:00 Test Item Value Reference Range Interpretation Comments Sodium Lvl (test code = Sodium Lvl) 144.0 135-145 N [facility]aEffehshYUMOVWKJO2407-85-58 10:10:00 Test Item Value Reference Range Interpretation Comments BUN (test code = BUN) 7.0 7-22 N [facility] RenaissanceRfotehnRANBGHKPUA8074-25-72 10:10:00 Test Item Value Reference Range Interpretation Comments Hgb (test code = Hgb) 9.0 12.0-16.0 L [facility] RenaissanceKriotvqUCHSTWRXGD8363-89-64 10:10:00 Test Item Value Reference Range Interpretation Comments Hct (test code = Hct) 26.3 36.0-48.0 L [facility]aDccrpbbENCFTDOJA1427-69-01 10:10:00 Test Item Value Reference Range Interpretation Comments AGAP (test code = AGAP) 15.5 10.0-20.0 N [facility]aLkxfvquABNPAHSGO8453-94-72 10:10:00 Test Item Value Reference Range Interpretation Comments Calcium Lvl (test code = Calcium Lvl) 7.8 8.5-10.5 L [facility]aBesizpeOVOKMWFXJ9493-22-99 10:10:00 Test Item Value Reference Range Interpretation Comments Glucose Lvl (test code = Glucose Lvl) 101.0 [facility]aZvsqzveAKJBCOGBT7006-78-87 10:10:00 Test Item Value Reference Range Interpretation Comments Chloride Lvl (test code = Chloride Lvl) 106.0 95-109 N [facility]aGscloluAAKZVRTLY6995-30-49 10:10:00 Test Item Value Reference Range Interpretation Comments CO2 (test code = CO2) 26.0 24-32 N [facility]aWhrvsorCTOJECAMJ5548-72-26 10:10:00 Test Item Value Reference Range Interpretation Comments Potassium Lvl (test code = Potassium 3.5 3.5-5.1 N Lvl) [facility]aMblctvpYWKJWSFLA5051-61-23 10:10:00 Test Item Value Reference Range Interpretation Comments Creatinine Lvl (test code = Creatinine 0.8 0.5-1.4 N Lvl) [facility]aVqvqljsUBWWUIGHT9966-65-78 10:10:00 Test Item Value Reference Range Interpretation Comments Sodium Lvl (test code = Sodium Lvl) 144.0 135-145 N [facility]aNeqynizNQSOSFDUV2924-13-05 10:10:00 Test Item Value Reference Range Interpretation Comments BUN (test code = BUN) 7.0 7-22 N [facility] RenaissanceMflpjavPHREHSWHFU7228-07-00 10:10:00 Test Item Value Reference Range Interpretation Comments Hgb (test code = Hgb) 9.0 12.0-16.0 L [facility] RenaissanceVoejyevOGKGNXAKFH9987-19-88 10:10:00 Test Item Value Reference Range Interpretation Comments Hct (test code = Hct) 26.3 36.0-48.0 L [facility]aStmdpjxZVEKZNEHZ7198-08-77 10:10:00 Test Item Value Reference Range Interpretation Comments AGAP (test code = AGAP) 15.5 10.0-20.0 N [facility]aTdtivhnXNAPWMTRV4834-56-46 10:10:00 Test Item Value Reference Range Interpretation Comments Calcium Lvl (test code = Calcium Lvl) 7.8 8.5-10.5 L [facility]aAotalhwJYMNZGBBC1425-59-08 10:10:00 Test Item Value Reference Range Interpretation Comments Glucose Lvl (test code = Glucose Lvl) 101.0 [facility]aQmbsnvkXVAYPPBWD5216-54-11 10:10:00 Test Item Value Reference Range Interpretation Comments Chloride Lvl (test code = Chloride Lvl) 106.0 95-109 N [facility]aCizaexvHUGXRORXD7736-66-73 10:10:00 Test Item Value Reference Range Interpretation Comments CO2 (test code = CO2) 26.0 24-32 N [facility]aGnxhqamIKSIYAUIG1761-45-75 10:10:00 Test Item Value Reference Range Interpretation Comments Potassium Lvl (test code = Potassium 3.5 3.5-5.1 N Lvl) [facility]aKrjfxrpCZLDCNGRU8987-24-59 10:10:00 Test Item Value Reference Range Interpretation Comments Creatinine Lvl (test code = Creatinine 0.8 0.5-1.4 N Lvl) [facility]aFyezpwnTBHCURRDG4284-41-36 10:10:00 Test Item Value Reference Range Interpretation Comments Sodium Lvl (test code = Sodium Lvl) 144.0 135-145 N [facility]aZsrhujsMSDRIHRZP0757-53-86 10:10:00 Test Item Value Reference Range Interpretation Comments BUN (test code = BUN) 7.0 7-22 N [facility] RenaissanceUlmnvuiSKYTLXGFQD2523-68-93 10:10:00 Test Item Value Reference Range Interpretation Comments Hgb (test code = Hgb) 9.0 12.0-16.0 L [facility] RenaissanceNexlceoCMZOGVSGVP6842-58-40 10:10:00 Test Item Value Reference Range Interpretation Comments Hct (test code = Hct) 26.3 36.0-48.0 L [facility]aLfqsjfcLZHIWEDBY9076-50-68 12:48:00 Test Item Value Reference Range Interpretation Comments Calcium Lvl (test code = Calcium Lvl) 7.6 8.5-10.5 L [facility]aYrxqbaeLTVXYFKGH1916-31-63 12:48:00 Test Item Value Reference Range Interpretation Comments Glucose Lvl (test code = Glucose Lvl) 115.0 [facility]aMgxwwxtMLGXFTCUE2347-14-57 12:48:00 Test Item Value Reference Range Interpretation Comments Potassium Lvl (test code = Potassium 3.6 3.5-5.1 N Lvl) [facility]aQntzvgsLUEEZAZNX3503-91-24 12:48:00 Test Item Value Reference Range Interpretation Comments Chloride Lvl (test code = Chloride Lvl) 107.0 95-109 N [facility]aHlvlaudFMFWNIAUJ3372-87-06 12:48:00 Test Item Value Reference Range Interpretation Comments CO2 (test code = CO2) 28.0 24-32 N [facility]aOdbidsuPBLSSCSJG1537-09-94 12:48:00 Test Item Value Reference Range Interpretation Comments BUN (test code = BUN) 6.0 7-22 L [facility]aGqtwgcuLJQQNMHLM8244-75-63 12:48:00 Test Item Value Reference Range Interpretation Comments Creatinine Lvl (test code = Creatinine 0.7 0.5-1.4 N Lvl) [facility]aErrdtxaDTWDZXBFY2687-49-31 12:48:00 Test Item Value Reference Range Interpretation Comments Sodium Lvl (test code = Sodium Lvl) 142.0 135-145 N [facility]aDxvvqwmGXKYBOHKK0488-73-40 12:48:00 Test Item Value Reference Range Interpretation Comments AGAP (test code = AGAP) 10.6 10.0-20.0 N [facility] RenaissanceIqekzjuCJBHRXHNFF5428-69-95 12:48:00 Test Item Value Reference Range Interpretation Comments MPV (test code = MPV) 9.0 7.4-10.4 N [facility] RenaissanceCkgqjfhJOEHQQEYVG3872-42-33 12:48:00 Test Item Value Reference Range Interpretation Comments Hct (test code = Hct) 28.9 36.0-48.0 L [facility] RenaissanceGqpauahAVLCXUJVYJ2924-01-80 12:48:00 Test Item Value Reference Range Interpretation Comments MCH (test code = MCH) 33.4 pg 27.0-31.0 H [facility] RenaissanceFmccyqjBCMJJPCEBA1538-66-31 12:48:00 Test Item Value Reference Range Interpretation Comments MCHC (test code = MCHC) 35.0 32.0-36.0 N [facility] RenaissanceXxfdcxhOMFRYUORWO8639-76-74 12:48:00 Test Item Value Reference Range Interpretation Comments RDW (test code = RDW) 13.9 11.5-14.5 N [facility] RenaissanceXtqknmzCLLCKQATRA5737-17-33 12:48:00 Test Item Value Reference Range Interpretation Comments MCV (test code = MCV) 95.2 81.0-99.0 N [facility] RenaissanceXeuunhnBWBKPMGINF1300-65-71 12:48:00 Test Item Value Reference Range Interpretation Comments Platelet (test code = Platelet) 125.0 133-450 L [facility] RenaissanceBunruicNECHDNIKSU4795-79-45 12:48:00 Test Item Value Reference Range Interpretation Comments WBC (test code = WBC) 6.1 3.7-10.4 N [facility] RenaissanceJrupwkiBNKRHTVPHT4399-06-30 12:48:00 Test Item Value Reference Range Interpretation Comments Hgb (test code = Hgb) 10.1 12.0-16.0 L [facility] RenaissanceTugxalfDKXECTMSCB3719-69-53 12:48:00 Test Item Value Reference Range Interpretation Comments RBC (test code = RBC) 3.03 4.20-5.40 L [facility] RenaissanceYaszuacRDKNSUZFZL5712-53-38 12:48:00 Test Item Value Reference Range Interpretation Comments Segs (test code = Segs) 63.1 45.0-75.0 N [facility] RenaissanceKrmzypfQOKUCPXCJJ7785-72-13 12:48:00 Test Item Value Reference Range Interpretation Comments Lymphocytes (test code = Lymphocytes) 21.9 20.0-40.0 N [facility] RenaissanceRufwpkrRLARALOCGT3738-35-86 12:48:00 Test Item Value Reference Range Interpretation Comments Monocytes (test code = Monocytes) 14.0 2.0-12.0 H [facility] RenaissanceEjpgstqCWAZAUMVDN8754-51-61 12:48:00 Test Item Value Reference Range Interpretation Comments Eosinophils (test code = 0.6 See_Comment N [A utomated message] The Eosinophils) system which ge nerated this result tra nsmitted reference range : <=4.0. The reference r bianka was not used to int erpret this result as normal/abnormal . [facility] RenaissanceRulkfkpSYXYAMCKLE5928-78-09 12:48:00 Test Item Value Reference Range Interpretation Comments Basophils (test code = 0.4 See_Comment N [Aut omated message] The Basophils) system which ge nerated this result tra nsmitted reference range : <=1.0. The reference r bianka was not used to int erpret this result as normal/abnormal . [facility] RenaissanceFggshsyUBLGFCJLXM5602-13-60 12:48:00 Test Item Value Reference Range Interpretation Comments Segs-Bands # (test code = Segs-Bands #) 3.8 1.5-8.1 N [facility] RenaissanceEynxgsqEHDQZCEEBT8200-17-04 12:48:00 Test Item Value Reference Range Interpretation Comments Monocytes # (test code 0.9 See_Comment H [Aut omated message] The = Monocytes #) system which generated this result tra nsmitted reference range : <=0.8. The reference r bianka was not used to int erpret this result as normal/abnormal . [facility] RenaissanceYpscivkUSVHQGDGEM7169-52-92 12:48:00 Test Item Value Reference Range Interpretation Comments Lymphocytes # (test code = Lymphocytes 1.3 1.0-5.5 N #) [facility] RenaissanceJjlpsfoOJFFZQDDAX1426-93-72 12:48:00 Test Item Value Reference Range Interpretation Comments Eosinophils # (test code 0.0 See_Comment N [A utomated message] The = Eosinophils #) system whic h generated this result tra nsmitted reference range : <=0.5. The reference r bianka was not used to int erpret this result as normal/abnormal . [facility] RenaissanceFmwjnkbNGTLHGCCZG7918-28-03 12:48:00 Test Item Value Reference Range Interpretation Comments Macrocyte (test code = 1+ *ABN*(10/08/2011 A Macrocyte) 06:48:00) ?? [facility]aYevvpmiUSIPEPXRN5795-23-75 12:48:00 Test Item Value Reference Range Interpretation Comments Calcium Lvl (test code = Calcium Lvl) 7.6 8.5-10.5 L [facility]aKxdzxpkUKGBSCWHQ7057-34-85 12:48:00 Test Item Value Reference Range Interpretation Comments Glucose Lvl (test code = Glucose Lvl) 115.0 [facility]aDoukbeqFHTHLJICB6427-15-21 12:48:00 Test Item Value Reference Range Interpretation Comments Potassium Lvl (test code = Potassium 3.6 3.5-5.1 N Lvl) [facility]aMasruxqTLILLATWR3943-26-53 12:48:00 Test Item Value Reference Range Interpretation Comments Chloride Lvl (test code = Chloride Lvl) 107.0 95-109 N [facility]aYeuheodWVJSQRWMX8381-83-62 12:48:00 Test Item Value Reference Range Interpretation Comments CO2 (test code = CO2) 28.0 24-32 N [facility]aXwmaqbpGELVTWIUK7643-05-83 12:48:00 Test Item Value Reference Range Interpretation Comments BUN (test code = BUN) 6.0 7-22 L [facility]aJbxusfnZKUWHPIJX7550-06-99 12:48:00 Test Item Value Reference Range Interpretation Comments Creatinine Lvl (test code = Creatinine 0.7 0.5-1.4 N Lvl) [facility]aWilmzzyUMUMXEOSL6662-95-49 12:48:00 Test Item Value Reference Range Interpretation Comments Sodium Lvl (test code = Sodium Lvl) 142.0 135-145 N [facility]aTqvuhqeLYLNAEWZB3107-63-00 12:48:00 Test Item Value Reference Range Interpretation Comments AGAP (test code = AGAP) 10.6 10.0-20.0 N [facility] RenaissanceUshhknsHALYOEZVRI3319-09-29 12:48:00 Test Item Value Reference Range Interpretation Comments MPV (test code = MPV) 9.0 7.4-10.4 N [facility] RenaissancePcphdpmRFHOAAOSIX4212-17-65 12:48:00 Test Item Value Reference Range Interpretation Comments Hct (test code = Hct) 28.9 36.0-48.0 L [facility] RenaissanceRjiwamiGZSBOIWKMN6923-27-08 12:48:00 Test Item Value Reference Range Interpretation Comments MCH (test code = MCH) 33.4 pg 27.0-31.0 H [facility] RenaissanceOdxepnzVLZJRUBRRE5582-36-55 12:48:00 Test Item Value Reference Range Interpretation Comments MCHC (test code = MCHC) 35.0 32.0-36.0 N [facility] RenaissanceLmqhfzqRVGPDRKOJE7503-38-87 12:48:00 Test Item Value Reference Range Interpretation Comments RDW (test code = RDW) 13.9 11.5-14.5 N [facility] RenaissanceSlzudpsKQFOCTORBA1704-46-94 12:48:00 Test Item Value Reference Range Interpretation Comments MCV (test code = MCV) 95.2 81.0-99.0 N [facility] RenaissanceIferyckGAEOWHRJOG2802-59-51 12:48:00 Test Item Value Reference Range Interpretation Comments Platelet (test code = Platelet) 125.0 133-450 L [facility] RenaissanceOjqvqdjWPTLDUAJAK4739-14-78 12:48:00 Test Item Value Reference Range Interpretation Comments WBC (test code = WBC) 6.1 3.7-10.4 N [facility] RenaissanceBiywsbfZJVJDXECUB6325-49-20 12:48:00 Test Item Value Reference Range Interpretation Comments Hgb (test code = Hgb) 10.1 12.0-16.0 L [facility] RenaissanceWbwwjbcLKXVPCAESR7142-10-00 12:48:00 Test Item Value Reference Range Interpretation Comments RBC (test code = RBC) 3.03 4.20-5.40 L [facility] RenaissanceRndghscRTPYOXGRMB2304-22-17 12:48:00 Test Item Value Reference Range Interpretation Comments Segs (test code = Segs) 63.1 45.0-75.0 N [facility] RenaissanceCgmdfbjCVOFAOZJRM1825-00-80 12:48:00 Test Item Value Reference Range Interpretation Comments Lymphocytes (test code = Lymphocytes) 21.9 20.0-40.0 N [facility] RenaissanceXqyfjbvSBKMPENDAP6658-60-18 12:48:00 Test Item Value Reference Range Interpretation Comments Monocytes (test code = Monocytes) 14.0 2.0-12.0 H [facility] RenaissanceFxhyvutHBXYGUCFEV6855-95-99 12:48:00 Test Item Value Reference Range Interpretation Comments Eosinophils (test code = 0.6 See_Comment N [A utomated message] The Eosinophils) system which ge nerated this result tra nsmitted reference range : <=4.0. The reference r bianka was not used to int erpret this result as normal/abnormal . [facility] RenaissanceDztofseIWQYUFYMDI9104-76-39 12:48:00 Test Item Value Reference Range Interpretation Comments Basophils (test code = 0.4 See_Comment N [Aut omated message] The Basophils) system which ge nerated this result tra nsmitted reference range : <=1.0. The reference r bianka was not used to int erpret this result as normal/abnormal . [facility] at RenaissanceZaxnhedPYYHRSFCPM0439-51-94 12:48:00 Test Item Value Reference Range Interpretation Comments Segs-Bands # (test code = Segs-Bands #) 3.8 1.5-8.1 N [facility] RenaissanceVecpmfkIBROGQLTJS0261-37-94 12:48:00 Test Item Value Reference Range Interpretation Comments Monocytes # (test code 0.9 See_Comment H [Aut omated message] The = Monocytes #) system which generated this result tra nsmitted reference range : <=0.8. The reference r bianka was not used to int erpret this result as normal/abnormal . [facility] RenaissanceSdkjxfyFATQZKUXYT8971-97-83 12:48:00 Test Item Value Reference Range Interpretation Comments Lymphocytes # (test code = Lymphocytes 1.3 1.0-5.5 N #) [facility] RenaissancePfhihyqGUASFQOSIP4693-32-04 12:48:00 Test Item Value Reference Range Interpretation Comments Eosinophils # (test code 0.0 See_Comment N [A utomated message] The = Eosinophils #) system [facility] h generated this result tra nsmitted reference range : <=0.5. The reference r bianka was not used to int erpret this result as normal/abnormal . [facility] RenaissanceSmacibaLLTQOMNKVR6220-69-46 12:48:00 Test Item Value Reference Range Interpretation Comments Macrocyte (test code = 1+ *ABN*(10/08/2011 A Macrocyte) 06:48:00) [facility]fwdbjiQIMSCIKXH7009-14-55 12:48:00 Test Item Value Reference Range Interpretation Comments Calcium Lvl (test code = Calcium Lvl) 7.6 8.5-10.5 L [facility]aRsxfrxuDZCFXMFJL4392-82-60 12:48:00 Test Item Value Reference Range Interpretation Comments Glucose Lvl (test code = Glucose Lvl) 115.0 [facility]aAddprfuSDMAWQBFL0316-47-82 12:48:00 Test Item Value Reference Range Interpretation Comments Potassium Lvl (test code = Potassium 3.6 3.5-5.1 N Lvl) [facility]aRxotsvlQVTQPBOAX2552-56-40 12:48:00 Test Item Value Reference Range Interpretation Comments Chloride Lvl (test code = Chloride Lvl) 107.0 95-109 N [facility]aNnlgwfoHOSWBPREJ8409-16-22 12:48:00 Test Item Value Reference Range Interpretation Comments CO2 (test code = CO2) 28.0 24-32 N [facility]aBnxztnfXGWTPMXOW6309-57-98 12:48:00 Test Item Value Reference Range Interpretation Comments BUN (test code = BUN) 6.0 7-22 L [facility]aKvdecuiMLWZTBEAC1163-85-83 12:48:00 Test Item Value Reference Range Interpretation Comments Creatinine Lvl (test code = Creatinine 0.7 0.5-1.4 N Lvl) [facility]aZzltcofVBSOHNHED7152-51-35 12:48:00 Test Item Value Reference Range Interpretation Comments Sodium Lvl (test code = Sodium Lvl) 142.0 135-145 N [facility]aTlizfwpJSDJVTVVH9742-23-24 12:48:00 Test Item Value Reference Range Interpretation Comments AGAP (test code = AGAP) 10.6 10.0-20.0 N [facility] RenaissanceSebydghNSAEUWJAFL6213-49-45 12:48:00 Test Item Value Reference Range Interpretation Comments MPV (test code = MPV) 9.0 7.4-10.4 N [facility] RenaissanceLyotcroMSAUWXFSDS5581-92-51 12:48:00 Test Item Value Reference Range Interpretation Comments Hct (test code = Hct) 28.9 36.0-48.0 L [facility] RenaissanceKdwtkliYSMOTDMLFS7780-85-08 12:48:00 Test Item Value Reference Range Interpretation Comments MCH (test code = MCH) 33.4 pg 27.0-31.0 H [facility] RenaissanceDuulgtyDVCXYIWJTZ7760-07-91 12:48:00 Test Item Value Reference Range Interpretation Comments MCHC (test code = MCHC) 35.0 32.0-36.0 N [facility] RenaissanceKzcbjzjFSDEYCRDXU1812-87-27 12:48:00 Test Item Value Reference Range Interpretation Comments RDW (test code = RDW) 13.9 11.5-14.5 N [facility] RenaissanceOujfzsgLTDJPWYPVO5518-92-71 12:48:00 Test Item Value Reference Range Interpretation Comments MCV (test code = MCV) 95.2 81.0-99.0 N [facility] RenaissanceZtmmzouSBUWSWTVWR4598-14-04 12:48:00 Test Item Value Reference Range Interpretation Comments Platelet (test code = Platelet) 125.0 133-450 L [facility] RenaissanceMrkuzusLNCNHAKNEF0695-25-10 12:48:00 Test Item Value Reference Range Interpretation Comments WBC (test code = WBC) 6.1 3.7-10.4 N [facility] RenaissanceGgeeivbWISNCOVJGG1585-15-78 12:48:00 Test Item Value Reference Range Interpretation Comments Hgb (test code = Hgb) 10.1 12.0-16.0 L [facility] RenaissanceVjhphdhSWKALYWKVG0025-12-46 12:48:00 Test Item Value Reference Range Interpretation Comments RBC (test code = RBC) 3.03 4.20-5.40 L [facility] RenaissanceVucmztxRMWHQAMLVJ8675-63-66 12:48:00 Test Item Value Reference Range Interpretation Comments Segs (test code = Segs) 63.1 45.0-75.0 N [facility] RenaissanceHqynqamHNZGMQLAQD8579-98-10 12:48:00 Test Item Value Reference Range Interpretation Comments Lymphocytes (test code = Lymphocytes) 21.9 20.0-40.0 N [facility] RenaissanceQinfrjjJZYNGMYURA7916-05-92 12:48:00 Test Item Value Reference Range Interpretation Comments Monocytes (test code = Monocytes) 14.0 2.0-12.0 H [facility] RenaissanceMujqvzvAJVNMDYEFE8364-50-66 12:48:00 Test Item Value Reference Range Interpretation Comments Eosinophils (test code = 0.6 See_Comment N [A utomated message] The Eosinophils) system which ge nerated this result tra nsmitted reference range : <=4.0. The reference r bianka was not used to int erpret this result as normal/abnormal . [facility] RenaissanceVelhnwtPTSAFOGOIZ3503-81-15 12:48:00 Test Item Value Reference Range Interpretation Comments Basophils (test code = 0.4 See_Comment N [Aut omated message] The Basophils) system which ge nerated this result tra nsmitted reference range : <=1.0. The reference r bianka was not used to int erpret this result as normal/abnormal . [facility] RenaissanceAxiuoebAIPFXJPROR4722-84-76 12:48:00 Test Item Value Reference Range Interpretation Comments Segs-Bands # (test code = Segs-Bands #) 3.8 1.5-8.1 N [facility] RenaissanceYnscibqMXKHDMNZKQ5098-25-26 12:48:00 Test Item Value Reference Range Interpretation Comments Monocytes # (test code 0.9 See_Comment H [Aut omated message] The = Monocytes #) system which generated this result tra nsmitted reference range : <=0.8. The reference r bianka was not used to int erpret this result as normal/abnormal . [facility] RenaissanceJsfwgqxNKENALICYC5011-19-25 12:48:00 Test Item Value Reference Range Interpretation Comments Lymphocytes # (test code = Lymphocytes 1.3 1.0-5.5 N #) [facility] RenaissanceWecsfaqPEXMULOAAC5922-37-50 12:48:00 Test Item Value Reference Range Interpretation Comments Eosinophils # (test code 0.0 See_Comment N [A utomated message] The = Eosinophils #) system whic h generated this result tra nsmitted reference range : <=0.5. The reference r bianka was not used to int erpret this result as normal/abnormal . [facility] RenaissanceIerrhfrVMWVYHUYNN1498-45-40 12:48:00 Test Item Value Reference Range Interpretation Comments Macrocyte (test code = 1+ *ABN*(10/08/2011 A Macrocyte) 06:48:00) ?? Rand Mcmullen Notes Date/Time Note Provider Source 2022-08-26 10:10:00-00:00 [id number] [facility] [address] [address] PATIENT NAME: BLAZE SAMUEL ADMIT DATE : 08/26/22 ACCOUNT NO: [id number] ROOM NO: AGE: 86 REPORT TYPE: OPERATIVE [...] otomy and tenorrhaphy. SURGEON: Tim Gonsalez M.D. CARVER HAND: Owen Arciniega M.D. ANESTHESIA: General plus local. [...] antibiotics in the holding area. The correct andry t was identified and signed. She was taken [...] Date Transcribed: 08/26/2022 10:26:30 DB/NAF Receipt ID: [id number] Authenticated by Tim Gonsalez MD On 07:17:00 AM Electronically Signed by Tim Gonsalez MD on 1 at 0717 PATIENT NAME: BLAZE SAMUEL 2022-08-26 08:16:00-00:00 [facility] ([facility]) Brief Op Note REPORT#:[id number] REPORT STATUS: Signed DATE:08/26/22 TIME: 815 PATIENT: BLAZE SAMUEL UNIT #: [id number] ROOM/BED: : 36 AGE: 86 SEX: F ATTEND: Eamon Gonsalez MD ADM AUTHOR: Tim Gonsalez MD * ALL edits or amendments must be made on the el [employer]/computer document * Op/Inv Proc Note - Brief Pre-procedure diagnosis: left metatarsalgia left 2/3/4 MT exostoses left 4th toe deformity Post-procedure diagnosis: same as pre procedure dx Procedures performed: left 2/3/4 MT exostectomies left 4th toe deformity correction Primary Surgeon: Sunshine Data Processing Auditor(s): Shofoluwe Findings: left 2/3/4 exostoses left 4th toe deformity Complications: none Estimated blood loss in ml's: 10 Specimens removed/altered: left 2/3/4 exostoses Electronically Signed by Tim Gonsalez MD on at 1004 [facility] #:[id number] END OF REPORT 2022-08-06 11:56:00-00:00 [id number] [facility] [place] [address] PATIENT NAME: BLAZE SAMUEL ADMIT DATE: ACCOUNT NO: [id number] ROOM NO: AGE: 86 REPORT TYPE: ELECTROCARDIOGRAM SEX: F ADMITTING PHYSICIAN: ATTENDING PHYSICIAN:Tim Gonsalez MD Order: [id number] Test Reason : PRE-OP CLEARANCE HTN Test [...] was found Confirmed by SHONA EDEN MD ([id number]) on 08/07/2022 8:49:32 PM Referred By: Tim Gonsalez Confirmed by:SHONA EDEN MD PATIENT NAME: BLAZE SAMUEL 2015-05-19 18:18:34-00:00 Name: BLAZE SAMUEL [facility] : 1935 Ordering Physician: Phil Thompson Pelvis [...] both hip joints as de scribed. SL: 2015-05-19 18:18:34-00:00 Name: BLAZE SAMUEL [facility] : 1935 Ordering Physician: Phil Thompson Wrist [...] described. SL: 2015-05-19 18:18:34-00:00 Name: BLAZE SAMUEL [facility] : 1935 Ordering Physician: Phil Thompson Forearm [...] minimally displaced ulnar styloid fracture. SL: 2015-05-19 18:18:34-00:00 Name: BLAZE SAMUEL [facility] : 1935 Ordering Physician: Phil Thompson Pelvis [...] both hip joints as de scribed. SL: 2015-05-19 18:18:34-00:00 Name: BLAZE SAMUEL [facility] : 1935 Ordering Physician: Phil Thompson Wrist [...] described. SL: 2015-05-19 18:18:34-00:00 Name: BLAZE SAMUEL [facility] : 1935 Ordering Physician: Phil Thompson Forearm [...] fracture. SL: 2015-05-19 17:48:56-00:00 Name: BLAZE SAMUEL [facility] : 1935 Ordering Physician: Phil Thompson Facial bone wo contrast CT : May 19, 2015 05:49: 00 PM. CLINICAL INDICATION: Pain Post Trauma Comparison Examination: None. TECHNIQUE: CT of the facial bones is performed with a multi-detector CT. Coronal and sagittal reconstructions were obtained and viewed on the [employer] workstation. Total DLP = 223.98 mGy/cm FINDINGS: [...] acute displaced facial bone fracture. SL: 2015-05-19 17:48:56-00:00 Name: BLAZE SAMUEL [facility] : 1935 Ordering Physician: Phil Thompson Facial bone wo contrast CT : May 19, 2015 05:49: 00 PM. CLINICAL INDICATION: Pain Post Trauma Comparison Examination: None. TECHNIQUE: CT of the facial bones is performed with a multi-detector CT. Coronal and sagittal reconstructions were obtained and viewed on the [employer] workstation. Total DLP = 223.98 mGy/cm FINDINGS: [...] fracture. SL: 2015-05-19 17:48:51-00:00 Name: BLAZE SAMUEL [facility] : 1935 SEX: F Ordering Physician: Phil [...] osseous or prevertebr al soft tissue abnormality. -2015-05-19 17:48:51-00:00 Name: BLAZE SAMUEL [facility] : 1935 SEX: F Ordering Physician: Phil [...] osseous or prevertebr al soft tissue abnormality. 2015-05-19 17:48:38-00:00 Name: SAMUEL BLAZE [facility] : 1935 Ordering Physician: Phil Thompson Brain [...] evidence of acute intracranial abnormal ity. SL: 2015-05-19 17:48:38-00:00 Name: BLAZE SAMUEL [facility] : 1935 Ordering Physician: Phil Thompson wo contrast CT : May 19, 2015 [...] 2014-10-10 11:00:43-00:00 STUDY: Knee AP and lateral [facility] COMPARISON: Knee x-rays dated October 11, 2013. FINDINGS: Two views of the r ight knee were obtained. Examination demonstrates postoperative changes of right total knee arthroplasty with patellar resurfacing, in anatomic alignment. Small suprapatellar joint effusion is identified. Lorri-articular os teopenia is noted. IMPRESSION: Postoperative ch anges of right knee arthroplasty in anatomic alignment. Unchanged exam. 2014-10-10 11:00:43-00:00 STUDY: Knee AP and lateral [facility] COMPARISON: Knee x-rays dated October 11, 2013. [...] 11:19:20-00:00 Exam: Right knee x-ray, 3 views [facility] Reason for Exam: Right knee pain. Arthroplasty. Comparison Exam: Right knee x-ray 10/05/2012 Discussion: The patient is status post r ecent Right knee arthroplasty. The metallic hardware appears unremarkable. No acute fracture lines are seen within the bones. No suspicious osteoblastic or osteolytic lesions. Impression: 1. Unremarkable appearance of the Right knee sta tus post arthroplasty. 2013-10-11 11:19:20-00:00 Exam: Right knee x-ray, 3 views [facility] Reason for Exam: Right knee pain. Arthroplasty. Comparison Exam: Right knee x-ray 10/05/2012 Discussion: The patient is status post r ecent Right knee arthroplasty. The metallic hardware appears unremarkable. No acute fracture lines are seen within the bones. No suspicious osteoblastic or osteolytic lesions. Impression: 1. Unremarkable appearance of the Right knee sta tus post arthroplasty.
[2023-07-14 10:49] LABS: Absolute Lymphocytes (CBC) 2.5 K/uL (0.7-4.9); Lymphocytes % 29.8 % (15.3-44.8); MCV 93.5 fL (80-100); MPV 8.4 fL (7.6-11.3); Platelets 184 thou/uL (152-406); RBC Red Blood Cell Count 3.96 M/uL (3.86-4.86)
--- NOTE | 2023-07-14 11:06 | RAD REPORT ---
EXAM DESCRIPTION: CT - Head Brain Wo Cont - 07/14/2023 10:44 am CLINICAL HISTORY: Headache COMPARISON: 2019 TECHNIQUE: Computed axial tomography of the head was obtained. IV contrast was not requested. All CT scans are performed using dose optimization technique as appropriate and may include automated exposure control or mA/KV adjustment according to patient size. FINDINGS: An intracranial bleed is not seen The ventricles are normal in caliber No extra-axial fluid collection is noted. Mild to moderate low-density areas within periventricular, deep and subcortical white matter likely r epresent ischemic changes secondary to small vessel disease. Mild fluid left maxillary and ethmoid sinuses IMPRESSION: No acute intracranial abnormality is seen. If patient's symptoms persist MRI of the brain may be helpful for further evaluation Fluid within the left maxillary and ethmoid sinuses may indicate acute sinusitis.
[2023-07-14 11:15] LABS: Protime INR 1.04
[2023-07-14] MEDS ORDERED: KETOROLAC 30 MG/ML INJ ONE (11:27)
[2023-07-14] MEDS ORDERED: METOCLOPRAMIDE 10 MG/2mL INJ ONE (11:27)
[2023-07-14] MEDS ORDERED: ACETAMINOPHEN 325 MG TABLET ONE (11:27)
[2023-07-14] MEDS ORDERED: NA CHLORIDE 0.9% 500 ML ONE (11:27)
[2023-07-14 11:38] LABS: Albumin 2.8 g/dL (3.4-5.0); Bilirubin Direct 0.1 mg/dL (0-0.2); Bilirubin Indirect, Calculated 0.3 mg/dL (0.2-0.8); Bilirubin Total 0.4 mg/dL (0.2-1.0); Magnesium 2.2 mg/dL (1.6-2.4); Potassium 3.9 mEq/L (3.5-5.1); Protein, Total 5.8 g/dL (6.4-8.2); Troponin High Sensitivity 9.6 pg/mL (<58.9)
--- NOTE | 2023-07-14 12:09 | EDPHYS ---
Physician Documentation [facility] Name: Julia Chpapell Age: 87 yrs Sex: Female : 1935 Arrival Date: 07/14/2023 Time: 10:05 Bed 12 Private MD: ED Physician Raulito Wilkerson HPI: 07/14 10:15 This 87 yrs old Female presents to ER via Unassigned with complaints of sp4 Tested positive for covid, Headache, Cough, Runny Nose. 10:33 87-year-old female presents with headache starting yesterday associated with feeling sp4 unwell overall. Patient tested positive for COVID on 07/03/2023. Patient completed course of Paxlovid. Yesterday patient developed left-sided headache associated with a left ear pain. Patient also developed cough runny nose and left-sided headache. Patient takes daily aspirin 81 mg. Patient denied vomiting, syncope, chest pain, shortness of breath. . Historical: - Allergies: 10:17 HYDRALAZINE; kc6 - PMHx: 10:17 Hyperlipidemia; Hypertension; Hypothyroidism; kc6 - PSHx: 10:17 section; Appendectomy; kc6 - Immunization history:: Client reports receiving the 2nd dose of the Covid vaccine, Flu vaccine is not up to date. - Social history:: Smoking status: Patient denies any tobacco usage or history of. - Family history:: not pertinent. ROS: 10:33 Constitutional: Negative for fever, chills, and weight loss, Neuro: Negative for sp4 weakness, numbness, tingling, and seizure, positive for headache 10:33 All other systems are negative. Exam: 10:33 Constitutional: This is a well developed, well nourished patient who is awake, alert, sp4 and in no acute distress. Head/Face: Normocephalic, atraumatic. Eyes: Pupils equal round and reactive to light, extra-ocular motions intact. Lids and lashes normal. Conjunctiva and sclera are not injected. Cornea within normal limits. Periorbital areas with no swelling, redness, or edema. ENT: Nares patent. No nasal discharge, no septal abnormalities noted. Tympanic membranes are normal and external auditory canals are clear. Oropharynx with no redness, swelling, or masses, exudates, or evidence of obstruction, uvula midline. Mucous membranes moist. Neck: Trachea midline, no thyromegaly or masses palpated, and no cervical lymphadenopathy. Supple, full range of motion without nuchal rigidity, or vertebral point tenderness. Chest/axilla: Normal chest wall appearance and motion. Nontender with no deformity. No lesions are appreciated. Cardiovascular: Regular rate and rhythm with a normal S1 and S2. No gallops, murmurs, or rubs. Normal PMI, no JVD. No pulse deficits. Respiratory: Lungs have equal breath sounds bilaterally, clear to auscultation and percussion. No rales, rhonchi or wheezes noted. No increased work of breathing, no retractions or nasal flaring. Abdomen/GI: Soft, non-tender, with normal bowel sounds. No distension or tympany. No guarding or rebound. No evidence of tenderness throughout. Back: No spinal tenderness. No costovertebral tenderness. Skin: Warm, dry with normal turgor. Normal color with no rashes, no lesions, and no evidence of cellulitis. MS/ Extremity: Pulses equal, no cyanosis. Neurovascular intact. Full, normal range of motion. Neuro: Awake and alert, GCS 15, oriented to person, place, time, and situation. Cranial nerves II-XII grossly intact. Motor strength 5/5 in all extremities. Sensory grossly intact. Psych: Awake, alert, with orientation to person, place and time. Behavior, mood, and affect are within normal limits 10:33 ECG was reviewed by the Attending Physician. EKG 10:31 AM there is normal sinus rhythm, sp4 rightward axis, no ST elevations, ventricular rate 71, no signs of acute ischemia, no ectopy Vital Signs: 10:16 BP 143 / 57; Pulse 73; Resp 18 S; Temp 98.1(O); Pulse Ox 95% on R/A; Weight 67.13 kg kc6 (R); Height 5 ft. 4 in. (R); 10:16 Body Mass Index 25.40 (67.13 kg, 162.56 cm) kc6 Sarah Coma Score: 10:33 Eye Response: spontaneous(4). Motor Response: obeys commands(6). Verbal Response: sp4 oriented(5). Total: 15. MDM: 10:17 Patient medically screened. sp4 10:33 Data reviewed: vital signs, nurses notes, lab test result(s), EKG, radiologic studies, sp4 CT scan. 11:55 Differential diagnosis: cluster headache, epidural hematoma, hypertensive headache, sp4 hyponatremia, migraine, tension headache, vasomotor headache. Consideration of Admission/Observation Escalation of care including admission/observation considered. ED course: Very pleasant 87-year-old female presents with worsening headache secondary to recently diagnosed COVID. Patient was in urgent care clinic and was prescribed amoxicillin which she has started on 07/08/2023. Patient today has improvement in her headache after medications in the emergency department. CAT scan revealed sinusitis. Probably acute bacterial sinusitis associated with recent COVID infection which represents bacterial superinfection,. Patient will be prescribed Zithromax once a day for 5 days with starting dose given in the ER today. Additionally advised ibuprofen 400 mg plus Tylenol 500 mg every 4 hours as needed for headache. Otherwise stable for discharge home. 07/14 10:16 Order name: Basic Metabolic Panel; Complete Time: 11:48 4 07/14 10:16 Order name: CBC with Diff; Complete Time: 11:29 sp4 07/14 10:16 Order name: LFT's; Complete Time: 11:48 sp4 07/14 10:16 Order name: Magnesium; Complete Time: 11:48 sp4 07/14 10:16 Order name: NT PRO-BNP; Complete Time: 11:48 sp4 07/14 10:16 Order name: PT-INR; Complete Time: 11:29 sp4 07/14 10:16 Order name: Troponin HS; Complete Time: 11:48 sp4 07/14 10:28 Order name: Influenza Screen (a \T\ B); Complete Time: 11:29 sp4 07/14 10:28 Order name: Strep [facility] 07/14 11:12 Order name: Throat Culture [facility] 07/14 10:29 Order name: CT Head Brain wo Cont; Complete Time: 11:29 sp4 07/14 10:16 Order name: EKG; Complete Time: 10:17 sp4 07/14 10:16 Order name: Cardiac monitoring; Complete Time: 10:59 sp4 07/14 10:16 Order name: EKG - Nurse/Tech; Complete Time: 10:59 sp4 07/14 10:16 Order name: IV Saline Lock; Complete Time: 10:59 sp4 07/14 10:16 Order name: Labs collected and sent; Complete Time: 10:59 sp4 07/14 10:16 Order name: O2 Per Protocol; Complete Time: 10:20 sp4 07/14 10:16 Order name: O2 Sat Monitoring; Complete Time: 10:20 sp4 EC:33 Rate is 71 beats/min. Rhythm is regular, Normal Sinus Rhythm. Right axis deviation sp4 noted. DE interval is normal. QRS interval is normal. No ST changes noted. Clinical impression: Normal ECG. Interpreted by me. Administered Medications: 11:24 Drug: metoCLOPramide IVP 10 mg Route: IVP; Site: right antecubital; kc6 12:15 Follow up: Response: No adverse reaction kc6 11:24 Drug: NS 0.9% IV 500 ml Route: IV; Rate: bolus; Site: right antecubital; kc6 12:15 Follow up: IV Status: Completed infusion; IV Intake: 500ml kc6 11:25 Drug: Ketorolac IVP 15 mg Route: IVP; Site: right antecubital; kc6 12:15 Follow up: Response: No adverse reaction; Pain is decreased kc6 11:25 Drug: Acetaminophen PO 650 mg Route: PO; kc6 12:15 Follow up: Response: No adverse reaction; Pain is decreased kc6 12:26 Drug: AZITHromycin PO 500 mg Route: PO; kc6 12:31 Follow up: Response: No adverse reaction kc6 Disposition Summary: 07/14/23 12:09 Discharge Ordered Location: Home sp4 Problem: new sp4 Symptoms: have improved sp4 Condition: Stable sp4 Diagnosis - Acute maxillary sinusitis, unspecified sp4 - Acute ethmoidal sinusitis, unspecified sp4 - Acute COVID-19, upper respiratory infection, acute maxillary and ethmoid sinusitissp4 Followup: sp4 - With: Private Physician - When: 7 - 10 days - Reason: Recheck today's complaints Discharge Instructions: - Discharge Summary Sheet sp4 - Sinusitis, Adult sp4 Forms: - Antibiotic Education sp4 - Patient Portal Instructions sp4 Prescriptions: - ibuprofen 400 mg Oral tablet - take 1 tablet by ORAL route every 6 hours PRN headache ( may take together with sp4 Tylenol 500 mg every 6 hours ); 30 tablet; Refills: 0, Product Selection Permitted - Zithromax Z-Tremaine 250 mg Oral Tablet - take 1 tablet by ORAL route as directed for 5 days Day 1 - take two (2) tablets sp4 one time. Day 2, 3, 4 , 5 take one (1) tablet once daily.; 6 tablet; Refills: 0, Product Selection Permitted Signatures: Dispatcher [employer] Suma Tavera RN RN kc6 [place] Wilkerson MD MD sp4 Corrections: (The following items were deleted from the chart) 10:31 10:17 Chest Single View+[email or web address] ordered. EDMS EDMS
--- NOTE | 2023-07-14 12:09 | ER ---
Nurse's Notes [facility] Name: Julia Chappell Age: 87 yrs Sex: Female : 1935 Arrival Date: 07/14/2023 Time: 10:05 Bed 12 Private MD: Diagnosis: Acute maxillary sinusitis, unspecified;Acute ethmoidal sinusitis, unspecified;Acute COVID-19, upper respiratory infection, acute maxillary and ethmoid sinusitis Presentation: 07/14 10:16 Chief complaint: Patient states: she tested positive for covid on 07/03 and again kc6 yesterday. stated she finished Paxlovid and steroids. still has a headache, congestion, cough and left ear pain. Coronavirus screen: At this time, the client does not indicate any symptoms associated with coronavirus-19. Ebola Screen: No symptoms or risks identified at this time. Initial Sepsis Screen: Does the patient meet any 2 criteria? No. Patient's initial sepsis screen is negative. Does the patient have a suspected source of infection? No. Patient's initial sepsis screen is negative. Risk Assessment: Do you want to hurt yourself or someone else? Patient reports no desire to harm self or others. Onset of symptoms was July 14, 2023. 10:16 Method Of Arrival: Ambulatory kc6 10:16 Acuity: MAGI 4 kc6 Triage Assessment: 10:17 Headache History: Denies prior headaches. General: Appears in no apparent distress. kc6 comfortable, ill, well groomed, Behavior is calm, cooperative, appropriate for age. Pain: Complains of pain in left ear. EENT: Reports nasal discharge. Neuro: Level of Consciousness is awake, alert, obeys commands, Oriented to person, place, time, situation, Appropriate for age Reports headache. Cardiovascular: Capillary refill < 3 seconds. Respiratory: Reports cough that is Airway is patent Trachea midline Respiratory effort is even, unlabored, Respiratory pattern is regular, symmetrical. GI: No signs and/or symptoms were reported involving the gastrointestinal system. : No signs and/or symptoms were reported regarding the genitourinary system. Derm: No signs and/or symptoms reported regarding the dermatologic system. Skin is intact, is healthy with good turgor, Skin is pink, warm \T\ dry. Musculoskeletal: No signs and/or symptoms reported regarding the musculoskeletal system. Circulation, motion, and sensation intact. Capillary refill < 3 seconds, Range of motion: intact in all extremities. Historical: - Allergies: 10:17 HYDRALAZINE; 6 - PMHx: 10:17 Hyperlipidemia; Hypertension; Hypothyroidism; kc6 - PSHx: 10:17 section; Appendectomy; kc6 - Immunization history:: Client reports receiving the 2nd dose of the Covid vaccine, Flu vaccine is not up to date. - Social history:: Smoking status: Patient denies any tobacco usage or history of. - Family history:: not pertinent. Screenin:19 [facility] ED Fall Risk Assessment (Adult) History of falling in the last 3 months, 6 including since admission No falls in past 3 months (0 pts) Confusion or Disorientation No (0 pts) Intoxicated or Sedated No (0 pts) Impaired Gait No (0 pts) Mobility Assist Device Used No (0 pt) Altered Elimination No (0 pt) Score/Fall Risk Level 0 - 2 = Low Risk. Abuse screen: Denies threats or abuse. Denies injuries from another. Nutritional screening: No deficits noted. Tuberculosis screening: No symptoms or risk factors identified. Assessment: 10:19 Reassessment: please see triage assessment. [facility] 11:19 Reassessment: Patient appears in no apparent distress at this time. No changes from [facility] previously documented assessment. Patient and/or family updated on plan of care and expected duration. Pain level reassessed. Patient is alert, oriented x 3, equal unlabored respirations, skin warm/dry/pink. 12:19 Reassessment: Patient appears in no apparent distress at this time. No changes from [facility] previously documented assessment. Patient and/or family updated on plan of care and expected duration. Pain level reassessed. Patient is alert, oriented x 3, equal unlabored respirations, skin warm/dry/pink. Vital Signs: 10:16 BP 143 / 57; Pulse 73; Resp 18 S; Temp 98.1(O); Pulse Ox 95% on R/A; Weight 67.13 kg kc6 (R); Height 5 ft. 4 in. (R); 10:16 Body Mass Index 25.40 (67.13 kg, 162.56 cm) [facility] [place] Coma Score: 10:33 Eye Response: spontaneous(4). Motor Response: obeys commands(6). Verbal Response: sp4 oriented(5). Total: 15. ED Course: 10:08 Patient arrived in ED. ts1 10:10 Suma Garza RN is Primary Nurse. kc6 10:15 Raulito Wilkerson MD is Attending Physician. sp4 10:17 Triage completed. kc6 10:17 Arm band placed on. kc6 10:19 Patient has correct armband on for positive identification. Bed in low position. Call kc6 light in reach. Side rails up X 1. Adult w/ patient. Client placed on continuous cardiac and pulse oximetry monitoring. NIBP monitoring applied. 10:46 CT Head Brain wo Cont In Process Unspecified. EDMS 10:59 Strep Sent. kc6 10:59 Influenza Screen (a \T\ B) Sent. kc6 12:31 No provider procedures requiring assistance completed. IV discontinued, intact, kc6 bleeding controlled, No redness/swelling at site. Pressure dressing applied. Administered Medications: 11:24 Drug: metoCLOPramide IVP 10 mg Route: IVP; Site: right antecubital; kc6 12:15 Follow up: Response: No adverse reaction kc6 11:24 Drug: NS 0.9% IV 500 ml Route: IV; Rate: bolus; Site: right antecubital; kc6 12:15 Follow up: IV Status: Completed infusion; IV Intake: 500ml kc6 11:25 Drug: Ketorolac IVP 15 mg Route: IVP; Site: right antecubital; kc6 12:15 Follow up: Response: No adverse reaction; Pain is decreased kc6 11:25 Drug: Acetaminophen PO 650 mg Route: PO; kc6 12:15 Follow up: Response: No adverse reaction; Pain is decreased kc6 12:26 Drug: AZITHromycin PO 500 mg Route: PO; kc6 12:31 Follow up: Response: No adverse reaction kc6 Medication: 12:32 VIS not applicable for this client. kc6 Intake: 12:15 IV: 500ml; Total: 500ml. kc6 Outcome: 12:09 Discharge ordered by . sp4 12:31 Discharged to home ambulatory, with family. kc6 12:31 Condition: stable 12:31 Discharge instructions given to patient, Instructed on discharge instructions, follow up and referral plans. medication usage, Demonstrated understanding of instructions, follow-up care, medications, Prescriptions given X 2. 12:32 Patient left the ED. kc6 Signatures: Dispatcher [employer] EDSuma Chow RN RN kc6 Raulito Wilkerson MD MD sp4 Holli Carlson PAS PAS ts1
[2023-07-14] MEDS ORDERED: AZITHROMYCIN 250 MG TAB ONE (12:28)
[2023-07-14 14:27] VITALS: BP 143/57; TEMP 98.1; O2SAT 95
--- NOTE | 2023-07-15 16:48 | EKG ---
Test Date: 2023-07-14 Test Time: 10:31:12 Metal Casket Maker: VIRGILIO MEASUREMENT RESULTS: Intervals: Rate: 71 VT: 156 QRSD: 96 QT: 412 QTc: 447 [place]: P: 41 VT: 156 QRS: 93 T: 112 INTERPRETIVE STATEMENTS: Normal sinus rhythm Rightward axis Nonspecific ST and T wave abnormality Abnormal ECG Compared to ECG 09/23/2019 10:23:30 Right-axis deviation now present ST (T wave) deviation still present Electronically Signed On 07-15-23 16:43:48 CDT by Gary Forbes
== END 2023-07-14 12:32 | disposition home or self-care (01) ==
LOC: ER 10:05
DX: U07.1 COVID-19 (principal); J01.00 Acute maxillary sinusitis, unspecified; J01.20 Acute ethmoidal sinusitis, unspecified
CPT/HCPCS: 96361; 93005; 87070; 85025; 80048; 36415; 83735; 85610; 80076; 87081; 84484; 83880; 87804 ×2; 70450; 96375; 96374; 99284; J2765; J7040

== ENCOUNTER 2023-10-01 06:30 | Day surgery (SDC) | payer OTHER, BC ==
--- NOTE | 2023-09-30 13:40 | RAD REPORT ---
EXAM DESCRIPTION: RAD - Chest Pa And Lat (2 Views) - 09/30/2023 1:28 pm CLINICAL HISTORY: Pre op pending heart catheterization COMPARISON: Chest Pa And Lat (2 Views) dated 07/10/2021; Chest Pa And Lat (2 Views) dated 07/12/2020; C hest Pa And Lat (2 Views) dated 06/10/2019; Chest Pa And Lat (2 Views) dated 07/14/2018 FINDINGS: Lines: None. Lungs: No evidence of edema or pneumonia. Pleural: No significant pleural effusions or pneumothorax. Cardiac: The heart size is within normal limits. Mediastinum: Within normal limits. Bones: No acute fractures. Soft tissue anchors in the right humeral head. Other: None IMPRESSION: No acute cardiopulmonary disease.
[2023-09-30 14:03] LABS: Hematocrit 35.8 % (36.0-45.0); Lymphocytes % 42.6 % (15.3-44.8); MCV 94.7 fL (80-100); MPV 9.5 fL (7.6-11.3); Platelets 146 thou/uL (152-406); RBC Red Blood Cell Count 3.78 M/uL (3.86-4.86)
[2023-09-30 14:09] LABS: Protime INR 0.99
[2023-10-01] MEDS ORDERED: HEPA 1000U/500MLS 2,000 UNIT/1,000 ML BAG IV ONE (06:44)
[2023-10-01] MEDS ORDERED: LIDOCAINE 1% 20 ML MDV ONE (06:44)
[2023-10-01] MEDS ORDERED: FENTANYL CITR 100 MCG/2 ML ONE (06:45)
[2023-10-01] MEDS ORDERED: MIDAZOLAM HCL 2 MG/2 ML INJ ONE (06:45)
[2023-10-01] MEDS ORDERED: HEPARIN 5000 UNIT/ML 1 ML VIAL ONE (06:45)
[2023-10-01] MEDS ORDERED: CLOPIDOGREL 75 MG TABLET ONE (06:46)
[2023-10-01] MEDS ORDERED: HEPARIN 10,000 UNIT/10 ML VIAL IV ONE (06:46)
[2023-10-01] MEDS ORDERED: ASPIRIN 325 MG TAB ONE (06:46)
[2023-10-01] MEDS ORDERED: VERAPAMIL HCL 10 MG/4 ML VIAL IV ONE (06:46)
[2023-10-01] MEDS ORDERED: TICAGRELOR 90 MG TABLET PO ONE (06:46)
[2023-10-01] MEDS ORDERED: ATROPINE SULF 1 MG/10 ML SYR IV ONE (06:47)
[2023-10-01] MEDS ORDERED: NA CHLORIDE 0.9% 500 ML ONE (07:13)
[2023-10-01 08:37] VITALS: TEMP 97.5
--- NOTE | 2023-10-01 08:46 | OP ---
Date of Procedure: 10/01/2023 Surgeon: ROBERTO OLGUIN Procedure Performed: 1.Selective coronary angiogram. 2.Left heart catheterization. Indication: Unstable angina. Access: Right radial artery 6-[place] closed with TR band. Complications: None. Bleeding: Less than 20 mL. Anesthesia: Total sedation time was 30 minutes, used fentanyl and Versed. Description Of Procedure: After risks, benefits, alternatives were explained, patient agreed to proc edure and signed informed consent. Patient was brought into cardiac catheterization laboratory, prep ped and draped in the usual sterile fashion. Then, I accessed right radial artery using pediatric mi cropuncture kit, placed 6-[place] Slender sheath and took 5-[place] Potlatch 4.0 catheter into the aortic root, engaged left main and the right coronary artery, took standard views and then a catheter was pu shed over the wire into the LV, measured LVEDP. Pullback did not record any gradient. We removed th e catheter and sheath, placed TR band with good hemostasis. Findings: 1.Left main; large and normal. 2.LAD; proximal 10% to 20% stenosis in multiple areas and in the mid segment there is focal 30% sten osis after the diagonal takeoff. The diagonals are normal. The rest of the LAD is normal. 3.Left circumflex is moderate-sized and normal. Normal OM branches. 4.RCA; large and dominant and normal. 5.Normal LVEDP. LVEDP at 5 mmHg. Conclusion: 1.Mild nonobstructive coronary artery disease. 2.Normal LVEDP. Recommendation: Medical management. /LESIAL Voice ID: [id number] Report ID: [id number]
[2023-10-01 10:03] VITALS: BP 128/59
[2023-10-01 10:19] VITALS: O2SAT 98
== END 2023-10-01 10:32 | disposition home or self-care (01) ==
LOC: CCL 06:30
PROVIDERS: ATTEND Internal Medicine
DX: I25.110 Atherosclerotic heart disease of native coronary artery with unstable angina pectoris (principal); I10 Essential (primary) hypertension; E78.2 Mixed hyperlipidemia; Z79.899 Other long term (current) drug therapy; Z82.49 Family history of ischemic heart disease and other diseases of the circulatory system
CPT/HCPCS: 85025; 80048; 36415; 83721; 85610; 85730; 71046; 93458; 76937; C1893; Q9966; J1644; J2001; J2250; J3010; J7040; J0461

== ENCOUNTER → 2024-01-28 | Emergency (ER) | payer OTHER, BC ==
[~2024-01-28] MED LIST: ALBUTEROL 2.5 MG/3 ML NEB SOL ONE; BENZONATATE 100 MG CAP PO ONE; IPRATROPIUM BROM 0.5MG/2.5ML ONE
[2024-01-28 14:38] LABS: Absolute Basophils 0.1 K/uL (0-0.5); Absolute Eosinophils 0.3 K/uL (0-0.5); Absolute Lymphocytes (CBC) 2.9 K/uL (0.7-4.9); Absolute Monocytes 0.6 K/uL (0.1-1.3); Absolute Neutrophil 3.3 K/uL (1.8-8.0); Basophils % 1.1 % (0-1.3); Eosinophils % 4.2 % (0-4.4); Hematocrit 35.3 % (36.0-45.0); Hemoglobin 12.1 g/dL (12.0-15.0); Lymphocytes % 40.3 % (15.3-44.8); MCH 31.9 pg (27.0-35.0); MCHC 34.3 g/dL (32.0-36.0); MCV 93.1 fL (80-100); MPV 9.2 fL (7.6-11.3); Monocytes % 8.5 % (3.3-12.3); Neutrophils % 45.9 % (41.7-73.7); Nucleated Red Blood Cells % 0.1 % (0-0); Platelets 160 thou/uL (152-406); RBC Red Blood Cell Count 3.79 M/uL (3.86-4.86); Red Cell Distribution Width 14.1 % (12.1-15.2)
--- NOTE | 2024-01-28 15:00 | RAD REPORT ---
EXAM DESCRIPTION: [place]ner Single View01/28/2024 2:34 pm CLINICAL HISTORY: cough COMPARISON: 2022 FINDINGS: The lungs appear clear of acute infiltrate. The heart is normal size IMPRESSION: No acute abnormalities displayed
[2024-01-28 15:01] LABS: Anion Gap 6.9 mEq/L (5.0-15.0); Potassium 3.9 mEq/L (3.5-5.1)
--- NOTE | 2024-01-28 15:08 | EDPHYS ---
Physician Documentation [facility] Name: Julia Chappell Age: 88 yrs Sex: Female : 1935 Arrival Date: 01/28/2024 Time: 13:41 Bed 20 Private MD: ED Physician Lonnie Bergeron HPI: 01/27 14:10 This 88 yrs old Female presents to ER via Ambulatory with complaints of URI ec2 s/s. 14:10 Patient arrives today for URI. Patient been having cough and cold symptoms ongoing for ec2 5 days. Patient reports productive sputum. Patient reports no fevers or chills, no nausea or vomiting. No issues with p.o. intake. No shortness of breath.. Historical: - Allergies: 13:54 HYDRALAZINE; ld1 - PMHx: 13:54 Hyperlipidemia; Hypertension; Hypothyroidism; ld1 - PSHx: 13:54 Appendectomy; section; ld1 - Immunization history:: Adult Immunizations up to date. - Social history:: Smoking status: Patient denies any tobacco usage or history of. Patient/guardian denies using alcohol. ROS: 14:10 Constitutional: as per hpi ec2 Exam: 14:10 Constitutional: GEN: NAD Head: atraumatic Eyes: EOMI Ears: External ears are ec2 normal. CV: regular rate LUNGS: no respiratory distress, no wheezes, rales, or rhonchi ABD: non-distended SKIN: no evidence of rashes MSK: no evidence of trauma NEURO: moves all extremities equally Vital Signs: 13:53 BP 157 / 64; Pulse 64; Resp 18; Temp 97.8(TE); Pulse Ox 99% on R/A; Weight 67.13 kg; ld1 Height 5 ft. 4 in. ; Pain 0/10; 15:01 BP 143 / 48; Pulse 82; Resp 18; Temp 97.7(TE); Pulse Ox 97% on R/A; Pain 0/10; nj1 15:08 BP 128 / 64; ec2 13:53 Body Mass Index 25.40 (67.13 kg, 162.56 cm) ld1 13:53 Pain Scale: Adult ld1 15:01 Pain Scale: Adult nj1 MDM: 14:08 Patient medically screened. ec2 14:10 Data reviewed: vital signs. ED course: Patient arrives today for URI signs and ec2 symptoms. Examination remarkable for well-appearing nontoxic individual is otherwise in no acute distress. Will obtain lab work, EKG, chest x-ray. Suspect viral infection, lower suspicion for pneumonia, doubt ACS or PE.. 14:33 ED course: EKG independently reviewed and interpreted by me, shows normal sinus rhythm, ec2 rate of 70, no acute ST segment elevations, nonconcerning intervals.. 15:05 ED course: Metabolic profile reassuring, CBC reassuring, chest x-ray shows no acute ec2 intrathoracic process. Suspect viral process causing patient's symptoms. Will discharge home. Return precautions given. . 03 14:09 Order name: Basic Metabolic Panel; Complete Time: 15:05 ec2 01/27 14:09 Order name: CBC with Diff; Complete Time: 15:05 ec2 01/27 14:09 Order name: XRAY Chest (1 view); Complete Time: 15:05 ec2 01/27 14:09 Order name: EKG; Complete Time: 14:09 ec2 01/27 14:09 Order name: Cardiac monitoring; Complete Time: 14:29 ec2 01/27 14:09 Order name: EKG - Nurse/Tech; Complete Time: 14:29 ec2 01/27 14:09 Order name: IV Saline Lock; Complete Time: 14:22 ec2 01/27 14:09 Order name: Labs collected and sent; Complete Time: 14:22 ec2 01/27 14:09 Order name: O2 Per Protocol; Complete Time: 14:10 ec2 01/27 14:09 Order name: O2 Sat Monitoring; Complete Time: 14:10 ec2 Administered Medications: 14:29 Drug: DuoNeb Nebulize (3:1) (2.5 mg - 0.5 mg) 3 ml Nebulizer once Route: Nebulizer; ll1 15:11 Follow up: Response: No adverse reaction; Marked relief of symptoms nj1 14:29 Drug: Tessalon Perle PO 100 mg PO once Route: PO; ll1 15:11 Follow up: Response: No adverse reaction nj1 Disposition Summary: 01/28/24 15:08 Discharge Ordered Notes: Location: Home ec2 Problem: new ec2 Symptoms: have improved ec2 Condition: Stable ec2 Diagnosis - Viral infection, unspecified ec2 Followup: ec2 - With: Private Physician - When: - Reason: Re-evaluation by your physician Discharge Instructions: - Discharge Summary Sheet ec2 - Viral Illness, Adult ec2 Forms: - Medication Reconciliation Form ec2 - Thank You Letter ec2 - Antibiotic Education ec2 - Prescription Opioid Use ec2 - Patient Portal Instructions ec2 - Leadership Thank You Letter ec2 Prescriptions: - albuterol sulfate 90 mcg/actuation Inhalation HFA Aerosol Inhaler - inhale 2 puff INHALATION route every 4 hours administer via ventilator; 90 ec2 microgram; Refills: 0, Product Selection Permitted - Prednisone 20 mg Oral Tablet - take 2 tablets ORAL route once daily for 5 days; 10 tablet; Refills: 0, Product ec2 Selection Permitted Signatures: Dispatcher [employer] Ross Rolon RN RN ll1 Blanquita Cabral RN RN ld1 Lonnie Bergeron MD MD ec2 Deepthi Haskins RN nj1
--- NOTE | 2024-01-28 15:08 | ER ---
Nurse's Notes [facility] Name: Julia Chappell Age: 88 yrs Sex: Female : 1935 Arrival Date: 01/28/2024 Time: 13:41 Bed 20 Private MD: Diagnosis: Viral infection, unspecified Presentation: 01/27 13:53 Chief complaint: Patient states: Productive cough and SOB X 4 days. Coronavirus screen: ld1 At this time, the client does not indicate any symptoms associated with coronavirus-19. Ebola Screen: No symptoms or risks identified at this time. Initial Sepsis Screen: Does the patient meet any 2 criteria? No. Patient's initial sepsis screen is negative. Does the patient have a suspected source of infection? No. Patient's initial sepsis screen is negative. Risk Assessment: Do you want to hurt yourself or someone else? Patient reports no desire to harm self or others. Onset of symptoms was January 28, 2024. 13:53 Method Of Arrival: Ambulatory ld1 13:53 Acuity: MAGI 3 ld1 Triage Assessment: 13:54 General: Appears in no apparent distress. comfortable, Behavior is calm, cooperative, ld1 appropriate for age. Pain: Denies pain. EENT: No signs and/or symptoms were reported regarding the EENT system. Neuro: Level of Consciousness is awake, alert, obeys commands, Oriented to person, place, time, situation. Cardiovascular: Capillary refill < 3 seconds Patient's skin is warm and dry. Respiratory: Airway is patent Respiratory effort is even, unlabored. GI: Abdomen is flat, non-distended. : No signs and/or symptoms were reported regarding the genitourinary system. Derm: No signs and/or symptoms reported regarding the dermatologic system. Musculoskeletal: No signs and/or symptoms reported regarding the musculoskeletal system. Historical: - Allergies: 13:54 HYDRALAZINE; ld1 - PMHx: 13:54 Hyperlipidemia; Hypertension; Hypothyroidism; ld1 - PSHx: 13:54 Appendectomy; section; ld1 - Immunization history:: Adult Immunizations up to date. - Social history:: Smoking status: Patient denies any tobacco usage or history of. Patient/guardian denies using alcohol. Screenin:02 [facility] ED Fall Risk Assessment (Adult) History of falling in the last 3 months, nj1 including since admission No falls in past 3 months (0 pts) Confusion or Disorientation No (0 pts) Intoxicated or Sedated No (0 pts) Impaired Gait No (0 pts) Mobility Assist Device Used Yes (1 pt) Altered Elimination No (0 pt) Score/Fall Risk Level 0 - 2 = Low Risk Oriented to surroundings, Maintained a safe environment, Hourly rounding (assess needs \T\ fall precautionary measures) done. Abuse screen: Denies threats or abuse. Denies injuries from another. Nutritional screening: No deficits noted. Tuberculosis screening: No symptoms or risk factors identified. Assessment: 14:29 Reassessment: No changes from previously documented assessment. Patient and/or family ll1 updated on plan of care and expected duration. Pain level reassessed. Patient is alert, oriented x 3, equal unlabored respirations, skin warm/dry/pink. 15:02 Reassessment: Patient appears in no apparent distress at this time. Patient and/or nj1 family updated on plan of care and expected duration. Pain level reassessed. Patient is alert, oriented x 3, equal unlabored respirations, skin warm/dry/pink. Vital Signs: 13:53 BP 157 / 64; Pulse 64; Resp 18; Temp 97.8(TE); Pulse Ox 99% on R/A; Weight 67.13 kg; ld1 Height 5 ft. 4 in. ; Pain 0/10; 15:01 BP 143 / 48; Pulse 82; Resp 18; Temp 97.7(TE); Pulse Ox 97% on R/A; Pain 0/10; nj1 15:08 BP 128 / 64; ec2 13:53 Body Mass Index 25.40 (67.13 kg, 162.56 cm) ld1 13:53 Pain Scale: Adult ld1 15:01 Pain Scale: Adult nj1 ED Course: 13:45 Patient arrived in ED. ec2 13:45 Lonnie Bergeron MD is Attending Physician. ec2 13:54 Triage completed. ld1 13:54 Arm band placed on right wrist. ld1 14:00 Deepthi Haskins, ISABEL is Primary Nurse. nj1 14:33 EKG done, by ED staff. [email or web address] 14:36 XRAY Chest (1 view) In Process Unspecified. EDMS 15:09 Patient has correct armband on for positive identification. Bed in low position. Call nj1 light in reach. Side rails up X 1. Provided Education on: call light, fall precautions. 15:19 No provider procedures requiring assistance completed. IV discontinued, intact, nj1 bleeding controlled, Pressure dressing applied. Administered Medications: 14:29 Drug: DuoNeb Nebulize (3:1) (2.5 mg - 0.5 mg) 3 ml Nebulizer once Route: Nebulizer; [facility] 15:11 Follow up: Response: No adverse reaction; Marked relief of symptoms nj1 14:29 Drug: Tessalon Perle PO 100 mg PO once Route: PO; 1 15:11 Follow up: Response: No adverse reaction nj1 Medication: 15:21 VIS not applicable for this client. nj1 Outcome: 15:08 Discharge ordered by . ec2 15:19 Discharged to home ambulatory, nj1 15:19 Condition: stable 15:19 Discharge instructions given to patient, Instructed on discharge instructions, follow up and referral plans. medication usage, Demonstrated understanding of instructions, follow-up care, medications, Prescriptions given X 2, 15:21 Patient left the ED. nj1 Signatures: Dispatcher [employer] EDRoss Grayson RN RN ll1 Blanquita Cabral RN RN ld1 Deepthi Haskins RN RN nj1 Lonnie Bergeron MD MD ec2 Roshan Celeste [email or web address] Corrections: (The following items were deleted from the chart) 15:02 15:01 BP 143 / 48; Pulse 82bpm; Resp 18bpm; Temp 97.7F Temporal; Pain 0/10, Adult; nj1 nj1
--- NOTE | 2024-01-29 14:26 | EKG ---
Test Date: 2024-01-28 Test Time: 13:26:32 Photographic Hand Developer: HAYLEE MEASUREMENT RESULTS: Intervals: Rate: 70 MO: 184 QRSD: 110 QT: 412 QTc: 444 [place]: P: 57 MO: 184 QRS: 22 T: 1 INTERPRETIVE STATEMENTS: Normal sinus rhythm Normal ECG Compared to ECG 07/14/2023 10:31:12 Right-axis deviation no longer present ST (T wave) deviation no longer present Electronically Signed On 01-29-24 14:23:19 CDT by Gary Forbes
== END ==
LOC: ER 13:41
DX: B34.9 Viral infection, unspecified (principal); Z88.8 Allergy status to other drugs, medicaments and biological substances
CPT/HCPCS: 85025; 80048; 36415; 71045; J7613; J7644; 93005

== ENCOUNTER 2024-07-15 19:42 | Emergency (ER) | payer OTHER, BC ==
[2024-07-15 20:24] LABS: Absolute Basophils 0.1 K/uL (0-0.5); Absolute Eosinophils 0.2 K/uL (0-0.5); Absolute Lymphocytes (CBC) 2.9 K/uL (0.7-4.9); Absolute Monocytes 0.8 K/uL (0.1-1.3); Absolute Neutrophil 2.7 K/uL (1.8-8.0); Basophils % 1.2 % (0-1.3); Eosinophils % 3.3 % (0-4.4); Hematocrit 35.4 % (36.0-45.0); Hemoglobin 11.8 g/dL (12.0-15.0); Lymphocytes % 43.7 % (15.3-44.8); MCH 31.9 pg (27.0-35.0); MCHC 33.5 g/dL (32.0-36.0); MCV 95.2 fL (80-100); Monocytes % 11.7 % (3.3-12.3); Neutrophils % 40.1 % (41.7-73.7); Nucleated Red Blood Cells % 0.2 % (0-0); Platelets 146 thou/uL (152-406); RBC Red Blood Cell Count 3.71 M/uL (3.86-4.86); Red Cell Distribution Width 14.2 % (12.1-15.2)
[2024-07-15 20:30] LABS: Protime INR 0.98
[2024-07-15 20:45] LABS: Albumin 3.4 g/dL (3.4-5.0); Albumin/Globulin Ratio 1.1 (1.1-1.8); Anion Gap 8.7 mEq/L (5.0-15.0); Bilirubin Direct 0.2 mg/dL (0-0.2); Bilirubin Indirect, Calculated 0.3 mg/dL (0.2-0.8); Bilirubin Total 0.5 mg/dL (0.2-1.0); Globulin 3.1 g/dL (2.3-3.5); Magnesium 2.2 mg/dL (1.6-2.4); Potassium 4.7 mEq/L (3.5-5.1); Protein, Total 6.5 g/dL (6.4-8.2); Troponin High Sensitivity 7.1 pg/mL (<58.9)
[2024-07-15 20:49] LABS: Thyroid Stimulating Hormone 0.58 uIU/mL (0.358-3.740)
--- NOTE | 2024-07-15 21:08 | RAD REPORT ---
EXAM DESCRIPTION: RADChest Single View07/15/2024 8:44 pm CLINICAL HISTORY: CHEST PAIN COMPARISON: Chest Single View dated 01/28/2024; Chest Pa And Lat (2 Views) dated 09/30/2023; Chest Pa And Lat (2 Views) dated 07/10/2021; Chest Pa And Lat (2 Views) dated 07/12/2020 TECHNIQUE: Portable AP view of the chest. FINDINGS: The lungs are clear. No pneumothorax or effusion. The cardiomediastinal contours are unre markable. IMPRESSION: No acute cardiopulmonary process.
[2024-07-15] MEDS ORDERED: MAGNES/ALUMIN/SIMET 30ML UCUP ONE (23:21)
[2024-07-15] MEDS ORDERED: FAMOTIDINE 20 MG/2 ML VIAL IV ONE (23:21)
[2024-07-15] MEDS ORDERED: METHYLPREDNISOLONE 125 MG INJ ONE (23:27)
[2024-07-15] MEDS ORDERED: ONDANSETRON 4 MG/2 ML VIAL ONE (23:27)
[2024-07-15] MEDS ORDERED: DIPHENHYDRAMINE 50 MG/ML VIAL ONE (23:28)
--- NOTE | 2024-07-16 00:14 | EDPHYS ---
Physician Documentation [facility] Name: Julia Chappell Age: 88 yrs Sex: Female : 1935 Arrival Date: 07/15/2024 Time: 19:42 Bed 7 Private MD: ED Physician Raulito Wilkerson HPI: 07/15 20:02 This 88 yrs old Female presents to ER via EMS with complaints of Chest Pain. sp4 07/16 00:19 Patient is a very pleasant 88-year-old female who presents with complaint of discomfort sp4 in the chest with radiation into her back. Pain is nonexertional it has begun earlier in the day. Patient denied shortness of breath denied cold sweats denied other symptoms . Patient has arrived with EMS was administered full dose p.o. aspirin. Patient has additional history of noncritical coronary artery disease. Patient has had left heart cath on 10/01/2023 and that has discovered normal left main artery, 10 to 20% stenosis LAD, 30% focal stenosis after diagonal takeoff, normal left circumflex, normal obtuse marginal, normal RCA, normal LVEDP, in conclusion patient was found to have mild nonobstructive coronary artery disease, normal LVEDP. Regrader then advised medical management. Patient currently takes Synthroid, nebivolol, and atorvastatin. She takes baby aspirin daily. . Historical: - Allergies: 07/15 19:52 HYDRALAZINE; jj7 - PMHx: 19:52 Hyperlipidemia; Hypertension; Hypothyroidism; jj7 - PSHx: 19:52 Appendectomy; section; HYSTERECTOMY ( section); RIGHT SHOULDER jj7 ( section); LEFT FOOT ( section); - Immunization history:: Adult Immunizations up to date, Client reports receiving the 2nd dose of the Covid vaccine. - Infectious Disease History:: Denies. - Social history:: Smoking status: Patient denies any tobacco usage or history of. Patient uses alcohol, but reports only rare drinking. - Family history:: not pertinent. ROS: 07/16 00:19 Constitutional: Negative for fever, chills, and weight loss, for chest discomfort sp4 associated with radiation to the back. All other systems are negative, Exam: 07/15 21:14 Constitutional: This is a well developed, well nourished patient who is awake, alert, sp4 and in no acute distress. Head/Face: Normocephalic, atraumatic. Eyes: Pupils equal round and reactive to light, extra-ocular motions intact. Lids and lashes normal. Conjunctiva and sclera are not injected. Cornea within normal limits. Periorbital areas with no swelling, redness, or edema. ENT: Nares patent. No nasal discharge, no septal abnormalities noted. Tympanic membranes are normal and external auditory canals are clear. Oropharynx with no redness, swelling, or masses, exudates, or evidence of obstruction, uvula midline. Mucous membranes moist. Neck: Trachea midline, no thyromegaly or masses palpated, and no cervical lymphadenopathy. Supple, full range of motion without nuchal rigidity, or vertebral point tenderness. Chest/axilla: Normal chest wall appearance and motion. Nontender with no deformity. No lesions are appreciated. Cardiovascular: Regular rate and rhythm with a normal S1 and S2. No gallops, murmurs, or rubs. Normal PMI, no JVD. No pulse deficits. Respiratory: Lungs have equal breath sounds bilaterally, clear to auscultation and percussion. No rales, rhonchi or wheezes noted. No increased work of breathing, no retractions or nasal flaring. Abdomen/GI: Soft, with normal bowel sounds. No distension or tympany. No guarding or rebound. No evidence of tenderness throughout. Back: No spinal tenderness. No costovertebral tenderness. Skin: Warm, dry with normal turgor. Normal color with no rashes, no lesions, and no evidence of cellulitis. MS/ Extremity: Pulses equal, no cyanosis. Neurovascular intact. Full, normal range of motion. Neuro: Awake and alert, GCS 15, oriented to person, place, time, and situation. Cranial nerves II-XII grossly intact. Motor strength 5/5 in all extremities. Sensory grossly intact. Psych: Awake, alert, with orientation to person, place and time. Behavior, mood, and affect are within normal limits ECG was reviewed by the Attending Physician. at 1954 EKG reveals normal sinus rhythm at the rate of 60, normal EKG 23:30 EKG 2315 reveals sinus bradycardia rate 56 otherwise normal EKG. This is repeat sp4 EKG at 2315 Vital Signs: 19:48 BP 168 / 74; Pulse 61; Resp 16; Temp 98.4; Pulse Ox 97% ; Weight 65.77 kg; Height 5 ft. jj7 3 in. ; 21:00 BP 107 / 84; Pulse 58; Resp 20; Pulse Ox 98% ; jj7 22:00 BP 160 / 69; Pulse 56; Resp 17; Pulse Ox 98% ; jj7 23:00 BP 151 / 96; Pulse 58; Resp 17 S; Pulse Ox 96% on R/A; ha1 07/16 00:00 BP 118 / 74; Pulse 66; Resp 17 S; Pulse Ox 95% on R/A; ha1 07/15 19:48 Body Mass Index 25.69 (65.77 kg, 160.02 cm) j7 MDM: 07/15 20:16 Patient medically screened. sp4 23:30 ED course: Patient manifested with a diffuse allergic rash here in ER. We have sp4 Administered medications for acute allergic hives. 07/16 00:19 Differential diagnosis: abnormal EKG, acute myocardial infarction, acute pericarditis, sp4 anxiety, esophagitis, gastritis. HEART Score: History: Slightly Suspicious (0), ECG: Normal (0), Age: > or = 65 years (2), Risk Factors: 1 or 2 risk factors (1), Troponin: < or = 1 x Normal Limit (0), Total Score = 3. The patient was not given aspirin in the Emergency Department. Administered by EMS. Data reviewed: vital signs, nurses notes, EMS record, old medical records, lab test result(s), EKG, radiologic studies, plain films. ED course: [facility] 8:44 pm CLINICAL HISTORY: CHEST PAIN COMPARISON: Chest Single View dated 01/28/2024; Chest Pa And Lat (2 Views) dated 09/30/2023; Chest Pa And Lat (2 Views) dated 07/10/2021; Chest Pa And Lat (2 Views) dated 07/12/2020 TECHNIQUE: Portable AP view of the chest. FINDINGS: The lungs are clear. No pneumothorax or effusion. The cardiomediastinal contours are unremarkable. IMPRESSION: No acute cardiopulmonary process. . 00:26 ED course: Troponin x 2 is negative, EKG x 2 is normal. Patient stable for discharge sp4 home. Patient's acute allergic hives were managed in the emergency room. Patient prescribed prednisone for the next 5 days to suppress acute allergic reaction. Recommended [id number] Benadryl every 8 hours as needed for itching and redness. . 07/15 19:55 Order name: Basic Metabolic Panel; Complete Time: 21: sp3 07/15 19:55 Order name: CBC with Diff; Complete Time: 21: sp3 07/15 19:55 Order name: LFT's; Complete Time: 21: sp3 07/15 19:55 Order name: Magnesium; Complete Time: 21: sp3 07/15 19:55 Order name: NT PRO-BNP; Complete Time: 21: sp3 07/15 19:55 Order name: PT-INR; Complete Time: 21: sp3 07/15 19:55 Order name: Troponin HS; Complete Time: 21: sp3 07/15 20:03 Order name: TSH; Complete Time: 21:4 07/15 20:03 Order name: T4 Free; Complete Time: 21:4 07/15 21:47 Order name: Troponin High Sensitivity: Collect at 23:00; Complete Time: 23:09 sp4 07/15 19:55 Order name: XRAY Chest (1 view); Complete Time: 23:09 3 07/15 19:55 Order name: EKG; Complete Time: 19:56 sp3 07/15 23:09 Order name: EKG; Complete Time: 23:10 sp4 07/15 19:55 Order name: Cardiac monitoring; Complete Time: 20:08 sp3 07/15 19:55 Order name: EKG - Nurse/Tech; Complete Time: 20:08 sp3 07/15 19:55 Order name: IV Saline Lock; Complete Time: 20:08 sp3 07/15 19:55 Order name: Labs collected and sent; Complete Time: 20:08 sp3 07/15 19:55 Order name: O2 Per Protocol; Complete Time: 20:08 sp3 07/15 19:55 Order name: O2 Sat Monitoring; Complete Time: 20:08 sp3 07/15 23:09 Order name: EKG - Nurse/Tech; Complete Time: 23:18 sp4 EC/05 21:14 Rate is 60 beats/min. Rhythm is regular, Normal Sinus Rhythm. QRS [place] is Normal. [place] sp4 interval is normal. QRS interval is normal. QT interval is normal. No Q waves. T waves are Normal. No ST changes noted. Clinical impression: Normal ECG. Interpreted by me. Reviewed by me. Administered Medications: 23:35 Drug: Ondansetron IVP 4 mg IVP once; over 2 minutes Route: IVP; Site: left antecubital; [facility] 07/16 00:00 Follow up: Response: No adverse reaction; Nausea is decreased 07/15 23:37 Drug: MethylPrednisoLONE IVP 125 mg IVP once Route: IVP; Site: left antecubital; [facility] 07/16 00:00 Follow up: Response: No adverse reaction; Marked relief of symptoms [facility] 07/15 23:39 Drug: diphenhydrAMINE IVP 25 mg IVP once Route: IVP; Site: left antecubital; [facility] 07/16 00:00 Follow up: Response: No adverse reaction; Marked relief of symptoms [facility] 07/15 23:41 Drug: Famotidine PO 20 mg PO once {Note: given IV at left AC.} Route: PO; [facility] 07/16 00:00 Follow up: Response: No adverse reaction; Marked relief of symptoms; Nausea is decreased07/15 23:41 Drug: Alum-Mag Hydroxide-Simeth PO Suspension (200 mg-200 mg-20 mg/5 mL) 30 ml PO once ha1 Route: PO; 07/16 00:00 Follow up: Response: No adverse reaction; Marked relief of symptoms [facility] Disposition Summary: 07/16/24 00:13 Discharge Ordered Notes: Location: Home sp4 Problem: new sp4 Symptoms: have improved sp4 Condition: Stable sp4 Diagnosis - Chest pain, unspecified sp4 - Acute Allergic Hives , Acute Nausea, Atypical chest pain sp4 Followup: sp4 - With: Gary Forbes MD - When: 7 - 10 days - Reason: Recheck today's complaints Discharge Instructions: - Discharge Summary Sheet sp4 - Hives, [id number] sp4 Forms: - Patient Portal Instructions sp4 Prescriptions: - Pepcid 20 mg Oral tablet - take 1 tablet ORAL route every 12 hours for 30 days; 60 tablet; Refills: 0, sp4 Product Selection Permitted - Prednisone 20 mg Oral Tablet - take 2 tablets ORAL route once daily for 5 days; 10 tablet; Refills: 0, Product sp4 Selection Permitted Signatures: Dispatcher [employer] Rani Clements MD MD sp3 Analy Horowitz RN RN ha1 Radha Benavides RN RN jj7 Raulito Wilkerson MD MD sp4
--- NOTE | 2024-07-16 00:14 | ER ---
Nurse's Notes [facility] Name: Julia Chappell Age: 88 yrs Sex: Female : 1935 Arrival Date: 07/15/2024 Time: 19:42 Bed 7 Private MD: Diagnosis: Chest pain, unspecified;Acute Allergic Hives , Acute Nausea, Atypical chest pain Presentation: 07/15 19:48 Chief complaint: Patient states: WAS HAVING CHEST PAIN BUT NOW IT FEEL LIKE INDIGESTION jj7 EMS states: PT STATED TO THEM SHE WAS SITTING WATCHING TV WHEN SHE HAD AN EPISODE OF CP THAT RADIATED TO HER LEFT ARM AND BACK. ALSO C/O OF HIGH BP. Coronavirus screen: At this time, the client does not indicate any symptoms associated with coronavirus-19. Ebola Screen: No symptoms or risks identified at this time. Initial Sepsis Screen: Does the patient meet any 2 criteria? No. Patient's initial sepsis screen is negative. Does the patient have a suspected source of infection? No. Patient's initial sepsis screen is negative. Risk Assessment: Do you want to hurt yourself or someone else? Patient reports no desire to harm self or others. Onset of symptoms was July 15, 2024. Care prior to arrival: Medication(s) given: Nitroglycerin, 0.4 mg SL x 1, LABETOLOL 10MG IV IV initiated. 20 GA, in the left antecubital area. 19:48 Method Of Arrival: EMS: [facility] j7 19:48 Acuity: MAGI 3 jj7 Triage Assessment: 19:52 General: Appears in no apparent distress. comfortable, Behavior is calm, cooperative, jj7 appropriate for age. Pain: Complains of pain in xiphoid area. Cardiovascular: Reports chest pain, CP FEELS LIKE INDIGESTION. Historical: - Allergies: 19:52 HYDRALAZINE; jj7 - PMHx: 19:52 Hyperlipidemia; Hypertension; Hypothyroidism; jj7 - PSHx: 19:52 Appendectomy; section; HYSTERECTOMY ( section); RIGHT SHOULDER jj7 ( section); LEFT FOOT ( section); - Immunization history:: Adult Immunizations up to date, Client reports receiving the 2nd dose of the Covid vaccine. - Infectious Disease History:: Denies. - Social history:: Smoking status: Patient denies any tobacco usage or history of. Patient uses alcohol, but reports only rare drinking. - Family history:: not pertinent. Screenin:[address] [facility] ED Fall Risk Assessment (Adult) History of falling in the last 3 months, jj7 including since admission No falls in past 3 months (0 pts) Confusion or Disorientation No (0 pts) Intoxicated or Sedated No (0 pts) Impaired Gait No (0 pts) Mobility Assist Device Used No (0 pt) Altered Elimination No (0 pt) Score/Fall Risk Level 0 - 2 = Low Risk Oriented to surroundings, Maintained a safe environment, Educated pt \\T\\ family on fall prevention, incl call for assistance when getting out of bed, Assessed \\T\\ reinforced patient's understanding of fall precautions. Abuse screen: Denies threats or abuse. Nutritional screening: No deficits noted. Tuberculosis screening: No symptoms or risk factors identified. Assessment: 19:56 Reassessment: SEE TRIAGE ASSESSMENT. Pain: Pain radiates to back and left arm Pain jj7 began 1 hour ago. 21:00 Reassessment: Patient and/or family updated on plan of care and expected duration. Pain ha1 level reassessed. Patient is alert, oriented x 3, equal unlabored respirations, skin warm/dry/pink. 22:00 Reassessment: Patient and/or family updated on plan of care and expected duration. Pain ha1 level reassessed. Patient is alert, oriented x 3, equal unlabored respirations, skin warm/dry/pink. 23:00 Reassessment: Patient and/or family updated on plan of care and expected duration. Pain ha1 level reassessed. Patient is alert, oriented x 3, equal unlabored respirations, skin warm/dry/pink. 23:15 Reassessment: reports rash and itchiness on her back and around abdomen States " I ha1 forgot to mention about this itchiness, maybe I am having an allergic reaction." Notified Dr. Wilkerson. 23:15 GI: Reports epigastric pain, nausea. ha1 23:15 Derm: Rash noted that is itchy, red, raised, on back and abdomen. ha1 23:17 Reassessment: Dr. Wilkerson in the room. ha1 07/16 00:00 Reassessment: Patient and/or family updated on plan of care and expected duration. Pain ha1 level reassessed. Patient is alert, oriented x 3, equal unlabored respirations, skin warm/dry/pink. Patient denies pain at this time. Patient states feeling better. Patient states symptoms have improved. Vital Signs: 07/15 19:48 BP 168 / 74; Pulse 61; Resp 16; Temp 98.4; Pulse Ox 97% ; Weight 65.77 kg; Height 5 ft. jj7 3 in. ; 21:00 BP 107 / 84; Pulse 58; Resp 20; Pulse Ox 98% ; jj7 22:00 BP 160 / 69; Pulse 56; Resp 17; Pulse Ox 98% ; jj7 23:00 BP 151 / 96; Pulse 58; Resp 17 S; Pulse Ox 96% on R/A; ha1 07/16 00:00 BP 118 / 74; Pulse 66; Resp 17 S; Pulse Ox 95% on R/A; ha1 07/15 19:48 Body Mass Index 25.69 (65.77 kg, 160.02 cm) [facility] ED Course: 07/15 19:44 Patient arrived in ED. j6 19:48 Radha Benavides, RN is Primary Nurse. j7 19:52 Triage completed. j7 19:52 Arm band placed on right wrist. Patient placed in an exam room, on a stretcher, on 7 surveillance system monitor. 19:56 Patient has correct armband on for positive identification. Placed in gown. Bed in low jj7 position. Call light in reach. Side rails up X2. Adult w/ patient. Provided Education on: USE OF CALL FRANZ. Client placed on continuous cardiac and pulse oximetry monitoring. NIBP monitoring applied. monitor technician on. Warm blanket given. 19:56 Maintain EMS IV. Dressing intact. Good blood return noted. Site clean \\T\\ dry. Gauge \\T\\ jj 7 site: 20 LEFT AC. Flushed with 10 mL NS. 20:02 Raulito Wilkerson MD is Attending Physician. sp4 20:45 XRAY Chest (1 view) In Process Unspecified. EDMS 21:36 Patient maintains SpO2 saturation greater than 95% on room air. ha1 22:15 Troponin High Sensitivity: Collect at 23:00 Sent. jj7 23:15 EKG done, by ED staff, reviewed by Raulito Wilkerson MD. ha1 07/16 00:12 Gary Forbes MD is Referral Physician. sp4 00:23 No provider procedures requiring assistance completed. IV discontinued, intact, jj7 bleeding controlled, No redness/swelling at site. Pressure dressing applied. Administered Medications: 07/15 23:35 Drug: Ondansetron IVP 4 mg IVP once; over 2 minutes Route: IVP; Site: left antecubital; 07/16 00:00 Follow up: Response: No adverse reaction; Nausea is decreased 07/15 23:37 Drug: MethylPrednisoLONE IVP 125 mg IVP once Route: IVP; Site: left antecubital; 1 07/16 00:00 Follow up: Response: No adverse reaction; Marked relief of symptoms 07/15 23:39 Drug: diphenhydrAMINE IVP 25 mg IVP once Route: IVP; Site: left antecubital; 1 07/16 00:00 Follow up: Response: No adverse reaction; Marked relief of symptoms [facility] 07/15 23:41 Drug: Famotidine PO 20 mg PO once {Note: given IV at left AC.} Route: PO; 1 07/16 00:00 Follow up: Response: No adverse reaction; Marked relief of symptoms; Nausea is decreased07/15 23:41 Drug: Alum-Mag Hydroxide-Simeth PO Suspension (200 mg-200 mg-20 mg/5 mL) 30 ml PO once ha1 Route: PO; 07/16 00:00 Follow up: Response: No adverse reaction; Marked relief of symptoms Medication: 07/15 19:56 VIS not applicable for this client. jj7 Outcome: 07/16 00:13 Discharge ordered by . sp4 00:23 Discharged to home via wheelchair, with family, jj7 00:23 Condition: improved 00:23 Discharge instructions given to patient, Instructed on discharge instructions, follow up and referral plans. medication usage, Demonstrated understanding of instructions, follow-up care, medications, Prescriptions given X 1, 00:24 Patient left the ED. jj7 Signatures: Dispatcher [employer] EDMS Lyn Roth jj6 Analy Horowitz RN RN ha1 Radha Benavides RN RN jj7 Raulito Wilkerson MD MD sp4 Corrections: (The following items were deleted from the chart) 07/15 23:43 23:38 MethylPrednisoLONE IVP 125 mg IVP in left antecubital ha1 07/16 00:04 07/15 23:15 GI: Reports epigastric pain, nausea, ha1 07/16 00:06 00:00 Response: No adverse reaction 1
[2024-07-16 00:29] VITALS: TEMP 98.4
[2024-07-16 00:33] VITALS: BP 118/74; O2SAT 95
--- NOTE | 2024-07-16 14:05 | EKG ---
Test Date: 2024-07-15 Test Time: 19:55:36 Dye Feeder: MEASUREMENT RESULTS: Intervals: Rate: 60 PA: 158 QRSD: 100 QT: 426 QTc: 426 [place]: P: 12 PA: 158 QRS: 10 T: 0 INTERPRETIVE STATEMENTS: Normal sinus rhythm Normal ECG Compared to ECG 01/28/2024 13:26:32 No significant changes Electronically Signed On 07-16-24 14:05:19 CDT by Gary Forbes
--- NOTE | 2024-07-19 17:11 | EKG ---
Test Date: 2024-07-15 Test Time: 23:16:37 Turbine Subassembler: SHERRON MEASUREMENT RESULTS: Intervals: Rate: 56 AK: 184 QRSD: 98 QT: 426 QTc: 411 [place]: P: 23 AK: 184 QRS: -5 T: -3 INTERPRETIVE STATEMENTS: Sinus bradycardia Minimal voltage criteria for LVH, may be normal variant Borderline ECG Compared to ECG 07/15/2024 19:55:36 Left ventricular hypertrophy now present Sinus rhythm no longer present Electronically Signed On 07-19-24 17:01:53 CDT by Gary Forbes
== END 2024-07-16 00:24 | disposition home or self-care (01) ==
LOC: ER 19:42
DX: R07.89 Other chest pain (principal); L50.0 Allergic urticaria; R11.0 Nausea; I10 Essential (primary) hypertension; E03.9 Hypothyroidism, unspecified
CPT/HCPCS: 93005 ×2; 85025; 80048; 36415; 83735; 85610; 80076; 84443; 84484 ×2; 84439; 83880; 71045; 96375; 96374; 99285; J1200; J2919; J2405

== ENCOUNTER 2024-07-18 10:34 | Emergency (ER) | payer OTHER, BC ==
[2024-07-18] MEDS ORDERED: DIPHENHYDRAMINE 50 MG/ML VIAL ONE (11:00)
[2024-07-18] MEDS ORDERED: NA CHLORIDE 0.9% 1,000 ML ONE (11:00)
[2024-07-18] MEDS ORDERED: dexAMETHasone 10 MG/ML VIAL ONE (11:00)
[2024-07-18] MEDS ORDERED: FAMOTIDINE 20 MG/2 ML VIAL IV ONE (11:00)
--- NOTE | 2024-07-18 12:40 | ER ---
Nurse's Notes [facility] Name: Julia Chappell Age: 88 yrs Sex: Female : 1935 Arrival Date: 07/18/2024 Time: 10:34 Bed 17 Private MD: Diagnosis: Urticaria, unspecified Presentation: 07/18 10:46 Chief complaint: Patient states: night BP was high, came into ER, but broke tm6 out into hives on back. Been taking prednisone and benadryl, but still feel like my throat is tight. Coronavirus screen: Vaccine status: Patient reports receiving the 2nd dose of the covid vaccine. Ebola Screen: Patient negative for fever greater than or equal to 101.5 degrees Fahrenheit, and additional compatible Ebola Virus Disease symptoms Patient denies exposure to infectious person. Patient denies travel to an Ebola-affected area in the 21 days before illness onset. No symptoms or risks identified at this time. Onset: The symptoms/episode began/occurred this morning. Anaphylaxis evaluation, no signs or symptoms of anaphylaxis were noted. Initial Sepsis Screen: Does the patient meet any 2 criteria? No. Patient's initial sepsis screen is negative. Does the patient have a suspected source of infection? No. Patient's initial sepsis screen is negative. Risk Assessment: Do you want to hurt yourself or someone else? Patient reports no desire to harm self or others. Onset of symptoms was July 18, 2024. 10:46 Method Of Arrival: Ambulatory tm6 10:46 Acuity: MAGI 3 tm6 Triage Assessment: 10:47 General: Appears in no apparent distress. Behavior is calm, cooperative. Pain: Denies tm6 pain. EENT: Reports tightness in throat. Neuro: Level of Consciousness is awake, alert, obeys commands, Oriented to person, place, time, situation. Cardiovascular: Patient's skin is warm and dry. Respiratory: Airway is patent Respiratory effort is even, unlabored, Respiratory pattern is regular, symmetrical. GI: No signs and/or symptoms were reported involving the gastrointestinal system. Abdomen is flat, non-distended. : No signs and/or symptoms were reported regarding the genitourinary system. Derm: No signs and/or symptoms reported regarding the dermatologic system. Musculoskeletal: No signs and/or symptoms reported regarding the musculoskeletal system. 10:49 Derm: Reports hives on abdomen and arms, itching. tm6 Historical: - Allergies: 10:47 HYDRALAZINE; tm6 - PMHx: 10:47 Hyperlipidemia; Hypertension; Hypothyroidism; tm6 - PSHx: 10:47 Appendectomy; section; hysterectomy (an); left foot (an); right shoulder (an); tm6 - Immunization history:: Client reports receiving the 2nd dose of the Covid vaccine. - Infectious Disease History:: Denies. - Social history:: Smoking status: Patient denies any tobacco usage or history of. Patient/guardian denies using alcohol. Screenin:58 [facility] ED Fall Risk Assessment (Adult) History of falling in the last 3 months, ap3 including since admission No falls in past 3 months (0 pts) Confusion or Disorientation No (0 pts) Intoxicated or Sedated No (0 pts) Impaired Gait No (0 pts) Mobility Assist Device Used No (0 pt) Altered Elimination No (0 pt) Score/Fall Risk Level 0 - 2 = Low Risk Oriented to surroundings, Maintained a safe environment, Educated pt \T\ family on fall prevention, incl call for assistance when getting out of bed, Assessed \T\ reinforced patient's understanding of fall precautions, Hourly rounding (assess needs \T\ fall precautionary measures) done, Used ambulatory aids as needed (educated on \T\ assisted with), Used gait belt as appropriate. Abuse screen: Denies threats or abuse. Nutritional screening: No deficits noted. Tuberculosis screening: No symptoms or risk factors identified. Assessment: 11:17 General: Appears in no apparent distress. Behavior is calm, cooperative, appropriate ap3 for age. Pain: Denies pain. Neuro: Level of Consciousness is awake, alert, obeys commands, Oriented to person, place, time, situation, Appropriate for age. Cardiovascular: Patient's skin is warm and dry. Respiratory: Airway is patent Respiratory effort is even, unlabored. EENT: Reports itchy throat. 13:01 Respiratory: Breath sounds are clear. ap3 Vital Signs: 10:45 BP 156 / 72; Pulse 59; Resp 20; Temp 98.9(O); Pulse Ox 97% on R/A; Weight 65.77 kg; tm6 Height 5 ft. 3 in. ; Pain 0/10; 13:00 BP 179 / 99; Pulse 60; Resp 17; Pulse Ox 99% on R/A; ap3 10:45 Body Mass Index 25.69 (65.77 kg, 160.02 cm) tm6 10:45 Pain Scale: Adult tm6 ED Course: 10:40 Patient arrived in ED. sj2 10:42 Ne Azul [facility]C [facility]. kb 10:42 Dorian Trivedi MD is Attending Physician. kb 10:47 Triage completed. tm6 10:47 Arm band placed on right wrist. tm6 10:55 Shanelle Peguero, ISABEL is Primary Nurse. ap3 11:17 Inserted saline lock: 22 gauge in right antecubital area, using aseptic technique. ap3 12:59 Patient has correct armband on for positive identification. Bed in low position. Call ap3 light in reach. Side rails up X 1. Pulse ox on. NIBP on. 12:59 Provided Education on: call light education. ap3 12:59 No provider procedures requiring assistance completed. IV discontinued, intact, ap3 bleeding controlled, No redness/swelling at site. Pressure dressing applied. Administered Medications: 11:17 Drug: NS 0.9% IV 1000 ml IV at 1000 ml once Route: IV; Rate: 1000 ml; Site: right ap3 antecubital; 12:58 Follow up: IV Status: Completed infusion; IV Intake: 1000ml ap3 11:17 Drug: Decadron - Dexamethasone IVP 10 mg IVP once Route: IVP; Site: right antecubital; ap3 12:59 Follow up: Response: No adverse reaction ap3 11:17 Drug: diphenhydrAMINE IVP 12.5 mg IVP once Route: IVP; Site: right antecubital; ap3 12:59 Follow up: Response: No adverse reaction ap3 11:17 Drug: Famotidine IVP 20 mg IVP once; dilute with 10 mL 0.9% NaCl; give over 2 minutes ap3 Route: IVP; Site: right antecubital; 12:59 Follow up: Response: No adverse reaction ap3 Medication: 12:59 VIS not applicable for this client. ap3 Intake: 12:58 IV: 1000ml; Total: 1000ml. ap3 Outcome: 12:39 Discharge ordered by . kb 13:00 Discharged to home ambulatory, ap3 13:00 Condition: good 13:00 Discharge instructions given to patient, Instructed on discharge instructions, follow up and referral plans. medication usage, Demonstrated understanding of instructions, follow-up care, medications, Prescriptions given X 1, 13:01 Patient left the ED. ap3 Signatures: Ne Azul, JORDAN-C JORDAN-Shanelle Johnson RN RN ap3 Cayla Easley RN RN tm6 Javed [facility], [place]
--- NOTE | 2024-07-18 12:40 | EDPHYS ---
Physician Documentation [facility] Name: Julia Chappell Age: 88 yrs Sex: Female : 1935 Arrival Date: 07/18/2024 Time: 10:34 Bed 17 Private MD: ED Physician Dorian Trivedi HPI: 07/18 12:50 This 88 yrs old Female presents to ER via Ambulatory with complaints of Allergic kb Reaction, THROAT FEELING TIGHT. 12:50 Pt is an 88 year old female who presents for continued tightening feeling to throat and kb hives that started 4 days ago. States she has been on prednisone and benadryl which helps, but the symptoms return. Denies shortness of breath. Historical: - Allergies: 10:47 HYDRALAZINE; tm6 - PMHx: 10:47 Hyperlipidemia; Hypertension; Hypothyroidism; tm6 - PSHx: 10:47 Appendectomy; section; hysterectomy (an); left foot (an); right shoulder (an); tm6 - Immunization history:: Client reports receiving the 2nd dose of the Covid vaccine. - Infectious Disease History:: Denies. - Social history:: Smoking status: Patient denies any tobacco usage or history of. Patient/guardian denies using alcohol. ROS: 12:38 Constitutional: As per HPI kb Exam: 12:37 Constitutional: This is a well developed, well nourished patient who is awake, alert, kb and in no acute distress. Head/Face: Normocephalic, atraumatic. ENT: Moist Mucous membranes Cardiovascular: Regular rate Respiratory: Respirations even and unlabored. No increased work of breathing. Talking in full sentences Skin: Warm, dry with normal turgor. Normal color. MS/ Extremity: Pulses equal, no cyanosis. Neurovascular intact. Full, normal range of motion. Neuro: Awake and alert, GCS 15, oriented to person, place, time, and situation. Moves all extremities. Normal gait. Vital Signs: 10:45 BP 156 / 72; Pulse 59; Resp 20; Temp 98.9(O); Pulse Ox 97% on R/A; Weight 65.77 kg; tm6 Height 5 ft. 3 in. ; Pain 0/10; 13:00 BP 179 / 99; Pulse 60; Resp 17; Pulse Ox 99% on R/A; ap3 10:45 Body Mass Index 25.69 (65.77 kg, 160.02 cm) tm6 10:45 Pain Scale: Adult tm6 MDM: 10:42 Patient medically screened. kb 12:39 Data reviewed: vital signs, nurses notes. kb 12:51 Differential diagnosis: anaphylaxis, angioedema, urticaria. Counseling: I had a kb detailed discussion with the patient and/or guardian regarding the historical points, exam findings, and any diagnostic results supporting the discharge/admit diagnosis, the need for outpatient follow up, a family practitioner, to return to the emergency department if symptoms worsen or persist or if there are any questions or concerns that arise at home. Response to treatment: the patient's symptoms have resolved after treatment. 07/18 10:52 Order name: IV Start; Complete Time: 11:17 kb Administered Medications: 11:17 Drug: NS 0.9% IV 1000 ml IV at 1000 ml once Route: IV; Rate: 1000 ml; Site: right ap3 antecubital; 12:58 Follow up: IV Status: Completed infusion; IV Intake: 1000ml ap3 11:17 Drug: Decadron - Dexamethasone IVP 10 mg IVP once Route: IVP; Site: right antecubital; ap3 12:59 Follow up: Response: No adverse reaction ap3 11:17 Drug: diphenhydrAMINE IVP 12.5 mg IVP once Route: IVP; Site: right antecubital; ap3 12:59 Follow up: Response: No adverse reaction ap3 11:17 Drug: Famotidine IVP 20 mg IVP once; dilute with 10 mL 0.9% NaCl; give over 2 minutes ap3 Route: IVP; Site: right antecubital; 12:59 Follow up: Response: No adverse reaction ap3 Disposition: 13:41 Co-signature as Attending Physician, Dorian Trivedi MD I reviewed the patient's care rt provided by the Advanced Practice Provider and agree with the diagnosis and treatment plan. Disposition Summary: 07/18/24 12:39 Discharge Ordered Notes: Location: Home Condition: Stable kb Diagnosis - Urticaria, unspecified kb Followup: kb - With: Emergency Department - When: As needed - Reason: Worsening of condition Followup: kb - With: Private Physician - When: 2 - 3 days - Reason: Recheck today's complaints, Continuance of care, Re-evaluation by your physician Discharge Instructions: - Discharge Summary Sheet kb - Allergies, Adult kb - Hives, [id number] kb Forms: - Medication Reconciliation Form kb - Antibiotic Education kb - Prescription Opioid Use kb - Patient Portal Instructions kb - Leadership Thank You Letter kb Prescriptions: - Pepcid 20 mg Oral Tablet - take 1 tablet ORAL route every 12 hours for 5 days; 10 tablet; Refills: 0, kb Product Selection Permitted Signatures: Ne Azul, JORDAN-Shanelle iRchard RN RN ap3 Dorian Trivedi MD MD rt Cayla Easley RN RN tm6
[2024-07-18 13:43] VITALS: TEMP 98.9
[2024-07-18 13:46] VITALS: BP 179/99; O2SAT 99
== END 2024-07-18 13:01 | disposition home or self-care (01) ==
LOC: ER 10:34
DX: L50.9 Urticaria, unspecified (principal); E78.5 Hyperlipidemia, unspecified; I10 Essential (primary) hypertension; E03.9 Hypothyroidism, unspecified
CPT/HCPCS: 96361; 96375; 96374; 99284; J1200; J1100; J7030

== ENCOUNTER 2024-12-12 09:45 | Observation (INO) | payer OTHER, BC ==
--- NOTE | 2024-12-12 10:39 | RAD REPORT ---
EXAM: Chest Single View HISTORY: PALPITATIONS COMPARISON: 07/15/2024 FINDINGS: LUNGS/PLEURA: The lungs are clear. No pleural effusions or pneumothorax. No pulmonary edema. MEDIASTINUM: The mediastinal silhouette is within normal limits. CARDIAC: The cardiac silhouette is within normal limits. UPPER ABDOMEN: No significant abnormality. BONES: No acute abnormality. Soft tissue anchors in the right humeral head. LINES/TUBES/OTHER: N/A IMPRESSION: No evidence of acute cardiopulmonary disease.
[2024-12-12 11:36] LABS: Absolute Basophils 0.1 K/uL (0-0.5); Absolute Eosinophils 0.1 K/uL (0-0.5); Absolute Lymphocytes (CBC) 2.2 K/uL (0.7-4.9); Absolute Monocytes 0.6 K/uL (0.1-1.3); Basophils % 1.1 % (0-1.3); Eosinophils % 2.4 % (0-4.4); Hemoglobin 12.6 g/dL (12.0-15.0); Lymphocytes % 36.5 % (15.3-44.8); MCH 31.8 pg (27.0-35.0); MCHC 33.9 g/dL (32.0-36.0); MCV 93.8 fL (80-100); MPV 9.4 fL (7.6-11.3); Monocytes % 10.7 % (3.3-12.3); Neutrophils % 49.3 % (41.7-73.7); Platelets 170 thou/uL (152-406); RBC Red Blood Cell Count 3.95 M/uL (3.86-4.86); Red Cell Distribution Width 13.8 % (12.1-15.2)
[2024-12-12 11:42] LABS: PT Prothrombin Time 11.9 SECONDS (9.4-12.5); Protime INR 1.13
[2024-12-12 12:03] LABS: Potassium 4.2 mEq/L (3.5-5.1); Troponin High Sensitivity 38.5 (<58.9)
[2024-12-12 12:04] LABS: Magnesium 2.2
[2024-12-12 12:26] LABS: Anion Gap 8.2 mEq/L (5.0-15.0); Thyroid Stimulating Hormone 0.72 uIU/mL (0.358-3.740)
--- NOTE | 2024-12-12 12:56 | RAD REPORT ---
EXAMINATION: CT ABDOMEN AND PELVIS WITH CONTRAST CLINICAL INDICATION: Female, 89 years old.dark stool TECHNIQUE: CT abdomen and pelvis was performed, after the administration of IV contrast, [facility]. Axial, sagittal and coronal reconstructions were obtained. One or more of the following dose reduction techniques were used: Automated exposure control, adjustment of the mA and/o r kV according to patient size, and/or iterative reconstruction. Unless otherwise specified, incidental findings do not require dedicated imaging follow-up. [id number]. COMPARISON: 10/18/2016 FINDINGS: LOWER CHEST: No acute process identified.No significant pericardial effusion. Mitral annular and aort ic root calcifications. UPPER GI: No significant abnormality. LIVER: Low-density lesion in the medial right hepatic lobe is unchanged and likely benign. GALLBLADDER/BILE DUCTS: No biliary ductal dilatation.? PANCREAS: No mass, ductal dilation, or rehan-pancreatic fluid. SPLEEN: Unremarkable. ADRENALS: No adrenal masses. KIDNEYS AND URETERS: No hydronephrosis.Left renal sinus cysts. ABDOMINAL AORTA AND OTHER VESSELS: Moderate atherosclerotic changes without aortic aneurysm. PERITONEUM: No abnormal free fluid. No free air. LYMPH NODES: No pathologic lymphadenopathy. ABDOMINAL WALL: Unremarkable SMALL BOWEL/COLON: Small bowel has normal course and caliber. No colonic wall thickening or pericolon ic inflammatory changes. Mild diverticulosis without diverticulitis. Mild to moderate formed stool in the colon. URINARY BLADDER: Underdistended but grossly unremarkable. REPRODUCTIVE ORGANS: No pathologic process. MUSCULOSKELETAL: Multilevel degenerative changes in the spine. No acute fracture. ADDITIONAL FINDINGS: None. IMPRESSION: No acute or significant abnormalities seen in the abdomen or pelvis. Incidental findings as noted abo ve.
--- NOTE | 2024-12-12 14:14 | ER ---
Nurse's Notes [facility] Name: Julia Chappell Age: 89 yrs Sex: Female : 1935 Arrival Date: 12/12/2024 Time: 09:45 Bed 16 Private MD: Diagnosis: Palpitations Presentation: 12/12 10:20 Chief complaint: Headache, bilateral ear pain, sore throat, and nausea since last hb night. Palpitations this morning. Coronavirus screen: At this time, the client does not indicate any symptoms associated with coronavirus-19. Ebola Screen: No symptoms or risks identified at this time. Initial Sepsis Screen: Does the patient meet any 2 criteria? No. Patient's initial sepsis screen is negative. Does the patient have a suspected source of infection? No. Patient's initial sepsis screen is negative. Risk Assessment: Do you want to hurt yourself or someone else? Patient reports no desire to harm self or others. Onset of symptoms was December 12, 2024. 10:20 Method Of Arrival: Ambulatory hb 10:20 Acuity: MAGI 3 hb Triage Assessment: 10:21 General: Appears in no apparent distress. uncomfortable, Behavior is calm, cooperative. hb Pain: Pain currently is 6 out of 10 on a pain scale. EENT: Reports bilateral ear pain, sore throat. Neuro: GCS 15. Reports headache. Cardiovascular: Patient's skin is warm and dry. Respiratory: Respiratory effort is even, unlabored, Respiratory pattern is regular, symmetrical. Historical: - Allergies: 10:21 HYDRALAZINE; hb - PMHx: 10:21 Hyperlipidemia; Hypertension; Hypothyroidism; hb - PSHx: 10:21 Appendectomy; section; hysterectomy; left foot; right shoulder; hb - Immunization history:: Adult Immunizations up to date. - Infectious Disease History:: Denies. - Family history:: not pertinent. - Hospitalizations: : No recent hospitalization is reported. - Social history:: Smoking status: Patient denies any tobacco usage or history of. Screenin:01 [facility] ED Fall Risk Assessment (Adult) History of falling in the last 3 months, db including since admission No falls in past 3 months (0 pts) Confusion or Disorientation No (0 pts) Intoxicated or Sedated No (0 pts) Impaired Gait No (0 pts) Mobility Assist Device Used No (0 pt) Altered Elimination No (0 pt) Score/Fall Risk Level 0 - 2 = Low Risk Oriented to surroundings, Maintained a safe environment. Abuse screen: Denies threats or abuse. Denies injuries from another. Nutritional screening: No deficits noted. Tuberculosis screening: No symptoms or risk factors identified. Assessment: 11:00 Reassessment: Patient appears in no apparent distress at this time. Patient and/or db family updated on plan of care and expected duration. Pain level reassessed. Patient is alert, oriented x 3, equal unlabored respirations, skin warm/dry/pink. General: Appears in no apparent distress. comfortable, Behavior is calm, cooperative. Neuro: Level of Consciousness is awake, alert, obeys commands, Oriented to person, place, time, situation. Respiratory: Airway is patent Respiratory effort is even, unlabored, Respiratory pattern is regular, symmetrical. 13:00 Reassessment: Patient appears in no apparent distress at this time. Patient and/or db family updated on plan of care and expected duration. Pain level reassessed. Patient is alert, oriented x 3, equal unlabored respirations, skin warm/dry/pink. 15:00 Reassessment: Patient appears in no apparent distress at this time. Patient and/or db family updated on plan of care and expected duration. Pain level reassessed. Patient is alert, oriented x 3, equal unlabored respirations, skin warm/dry/pink. Neuro: Level of Consciousness is awake, alert, obeys commands, Oriented to person, place, time, situation. Respiratory: Airway is patent Respiratory effort is even, unlabored, Respiratory pattern is regular, symmetrical, Breath sounds are clear. Vital Signs: 10:20 BP 153 / 70; Pulse 66; Resp 16; Temp 98.4(O); Pulse Ox 100% on R/A; Weight 67.13 kg; hb Height 5 ft. 3 in. ; Pain 6/10; 11:00 BP 128 / 61; Pulse 67; Resp 16; Pulse Ox 97% ; db 12:00 BP 148 / 69; Pulse 61; Resp 18; Pulse Ox 97% on R/A; db 12:43 BP 156 / 68; Pulse 64; Resp 16; Pulse Ox 97% on R/A; db 13:00 BP 149 / 74; Pulse 60; Resp 16; Pulse Ox 97% on R/A; db 14:00 BP 160 / 57; Pulse 61; Resp 16; Pulse Ox 97% on R/A; db 14:30 BP 162 / 70; Pulse 57; Resp 16; Pulse Ox 97% ; db 15:30 BP 174 / 64; Pulse 64; Resp 16; Pulse Ox 95% ; db 10:20 Body Mass Index 26.22 (67.13 kg, 160.02 cm) hb 10:20 Pain Scale: Adult hb ED Course: 09:53 Patient arrived in ED. al6 09:54 Jacob Enriquez MD is Attending Physician. rn 10:21 Triage completed. hb 10:21 Arm band placed on. hb 10:37 XRAY Chest (1 view) In Process Unspecified. EDMS 11:10 Patient has correct armband on for positive identification. Bed in low position. Call db light in reach. Side rails up X 1. Client placed on continuous cardiac and pulse oximetry monitoring. NIBP monitoring applied. groundwater monitoring technician on. Pulse ox on. NIBP on. Warm blanket given. Pillow given. 11:10 Initial lab(s) drawn, by me, sent to lab. EKG done. Inserted saline lock: 22 gauge in db left antecubital area, using aseptic technique. Blood collected. Flushed with 10 mL NS. 12:00 Elis Ibrahim, RN is Primary Nurse. db 12:[address] via wheelchair. db 12:39 CT Abd/Pelvis - IV Contrast Only In Process Unspecified. EDMS 14:12 Krystyna Vanegas MD is Hospitalizing Provider. rn 15:45 Provided Education on: ADMISSION. db 15:45 No provider procedures requiring assistance completed. Patient admitted, IV remains in db place. Administered Medications: No medications were administered Medication: 12:15 VIS not applicable for this client. db Outcome: 14:14 Decision to Hospitalize by Provider. rn 15:45 Admitted to Med/surg accompanied by tech, room 230, Report called to FAXED db 15:45 Condition: stable 15:45 Instructed on the need for admit, 15:49 Patient left the ED. db 16:10 Patient left the ED. eb Signatures: Dispatcher [employer] EDMS Jacob Enriquez MD MD rn Baxter, Heather, RN RN Elvia Cage Elis Ibrahim, RN RN Kari Love al6
--- NOTE | 2024-12-12 14:14 | EDPHYS ---
Physician Documentation [facility] Name: Julia Chappell Age: 89 yrs Sex: Female : 1935 Arrival Date: 12/12/2024 Time: 09:45 Bed 16 Private MD: ED Physician Jacob Enriquez HPI: 12/12 10:37 This 89 yrs old Female presents to ER via Ambulatory with complaints of Sore Throat, rn Ear Pain, Palpitations, Headache. 10:37 The patient presents with a history of heart racing. Onset: The symptoms/episode rn began/occurred this morning. Duration: The patient or guardian reports a single episode. Modifying factors: The symptoms are aggravated by nothing. The symptoms are alleviated by nothing. Severity of symptoms: At their worst the symptoms were moderate in the emergency department the symptoms have improved. The patient has experienced similar episodes in the past. Patient reports has been having episodes of palpitations and heart racing, no clear diagnosis, happened again this morning and her blood pressure cuff read heart rate of 200. Patient felt heart racing with flushing and ringing in her years with headache. No syncope. No chest pain. Does not currently feel the same symptoms. Also reports 4 episodes of dark bowel movement. Denies abdominal pain or diarrhea. No vomiting. Does have history of GERD.. Historical: - Allergies: 10:21 HYDRALAZINE; hb - PMHx: 10:21 Hyperlipidemia; Hypertension; Hypothyroidism; hb - PSHx: 10:21 Appendectomy; section; hysterectomy; left foot; right shoulder; hb - Immunization history:: Adult Immunizations up to date. - Infectious Disease History:: Denies. - Family history:: not pertinent. - Hospitalizations: : No recent hospitalization is reported. - Social history:: Smoking status: Patient denies any tobacco usage or history of. ROS: 10:37 Constitutional: Negative for fever, chills, and weight loss, Cardiovascular: Positive rn for heart racing, negative for chest pain Respiratory: Negative for shortness of breath, cough, wheezing, and pleuritic chest pain, Abdomen/GI: Negative for abdominal pain, nausea, vomiting, diarrhea, and constipation, MS/Extremity: Negative for injury and deformity, Skin: Negative for injury, rash, and discoloration, Neuro: Negative for headache, weakness, numbness, tingling, and seizure, Exam: 10:37 Constitutional: This is a well developed, well nourished patient who is awake, alert, rn and in no acute distress. ENT: Moist mucous membranes, no stridor Neck: No masses Cardiovascular: Regular rate and rhythm. No pulse deficits. Respiratory: Speaking full sentences, unlabored. No increased work of breathing, no retractions or nasal flaring. Abdomen/GI: Soft, non-tender MS/ Extremity: Pulses equal, no cyanosis. Neuro: Awake and alert, GCS 15, oriented to person, place, time, and situation. Cranial nerves II-XII grossly intact. Motor strength 5/5 in all extremities. Sensory grossly intact. Cerebellar exam normal. Vital Signs: 10:20 BP 153 / 70; Pulse 66; Resp 16; Temp 98.4(O); Pulse Ox 100% on R/A; Weight 67.13 kg; hb Height 5 ft. 3 in. ; Pain 6/10; 11:00 BP 128 / 61; Pulse 67; Resp 16; Pulse Ox 97% ; db 12:00 BP 148 / 69; Pulse 61; Resp 18; Pulse Ox 97% on R/A; db 12:43 BP 156 / 68; Pulse 64; Resp 16; Pulse Ox 97% on R/A; db 13:00 BP 149 / 74; Pulse 60; Resp 16; Pulse Ox 97% on R/A; db 14:00 BP 160 / 57; Pulse 61; Resp 16; Pulse Ox 97% on R/A; db 14:30 BP 162 / 70; Pulse 57; Resp 16; Pulse Ox 97% ; db 15:30 BP 174 / 64; Pulse 64; Resp 16; Pulse Ox 95% ; db 10:20 Body Mass Index 26.22 (67.13 kg, 160.02 cm) hb 10:20 Pain Scale: Adult hb MDM: 09:54 Medical Screening Exam initiated rn 14:12 Differential diagnosis: arrythmia, dehydration, stress disorder. Data reviewed: vital rn signs, nurses notes, lab test result(s), EKG, radiologic studies, CT scan, plain films, and as a result, I will admit patient. Consideration of Admission/Observation Patient was admitted/placed on observation. Escalation of care including admission/observation considered. Counseling: I had a detailed discussion with the patient and/or guardian regarding the historical points, exam findings, and any diagnostic results supporting the discharge/admit diagnosis, lab results, radiology results, the need for further work-up and treatment in the hospital. ED course: Discussed case with Dr. Vanegas, request admission on telemetry and cardiology consultation.. 12/12 10:24 Order name: Basic Metabolic Panel; Complete Time: 12:27 rn 12/12 10:24 Order name: CBC with Diff; Complete Time: 11:38 rn 12/12 10:24 Order name: Magnesium; Complete Time: 12:27 rn 12/12 10:24 Order name: NT PRO-BNP; Complete Time: 12:27 rn 12/12 10:24 Order name: PT-INR; Complete Time: 12:27 rn 12/12 10:24 Order name: Troponin HS; Complete Time: 12:27 rn 12/12 10:24 Order name: TSH; Complete Time: 12:27 rn 12/12 10:24 Order name: T4 Free; Complete Time: 12:27 rn 12/12 10:24 Order name: XRAY Chest (1 view); Complete Time: 11:02 rn 12/12 10:24 Order name: CT Abd/Pelvis - IV Contrast Only; Complete Time: 13:17 rn 12/12 14:24 Order name: CONS Physician Consult EDIL 12/12 10:24 Order name: Cardiac monitoring; Complete Time: 12:00 rn 12/12 10:24 Order name: EKG - Nurse/Tech; Complete Time: 12:00 rn 12/12 10:24 Order name: IV Saline Lock; Complete Time: 12:00 rn 12/12 10:24 Order name: Labs collected and sent; Complete Time: 12:00 rn 12/12 10:24 Order name: O2 Per Protocol; Complete Time: 12:00 rn 12/12 10:24 Order name: O2 Sat Monitoring; Complete Time: 12:01 rn Administered Medications: No medications were administered Disposition Summary: 12/12/24 14:14 Hospitalization Ordered Notes: Hospitalization Status: Observation rn Provider: Krystyna Vanegas rn Location: Telemetry/MedSurg (observation) rn Condition: Stable rn Problem: new rn Symptoms: have improved rn Bed/Room Type: Standard rn Room Assignment: 230(12/12/24 14:34) eb Diagnosis - Palpitations rn Forms: - Medication Reconciliation Form rn - SBAR form rn - Leadership Thank You Letter rn Signatures: Dispatcher [employer] EDMS Jacob Enriquez MD MD rn Baxter, Heather, RN RN hb Botello, Elizabeth eb Benton, Danielle RN RN db Corrections: (The following items were deleted from the chart) 10:25 10:24 BASIC METABOLIC PANEL+C.LAB.BRZ ordered. EDMS EDMS 10:25 10:24 CBC+H.LAB.BRZ ordered. EDMS EDMS 10:25 10:24 MAGNESIUM+C.LAB.BRZ ordered. EDMS EDMS 10:25 10:24 PROBNP+C.LAB.BRZ ordered. EDMS EDMS 10:25 10:24 PROTIME (+INR)+COAG.LAB.BRZ ordered. EDMS EDMS 10:25 10:24 Troponin High Sensitivity+C.LAB.BRZ ordered. EDMS EDMS 10:25 10:25 Chest Single View+RAD.RAD.BRZ ordered. EDMS EDMS 10:25 10:25 Abdomen Pelvis W Con+CT.RAD.BRZ ordered. EDMS EDMS 10:25 10:25 THYROID STIMULAT HORMONE+C.LAB.BRZ ordered. EDMS EDMS 10:25 10:25 T4 FREE+C.LAB.BRZ ordered. EDMS EDMS 14:34 14:14 aj maddox
[2024-12-12 16:19] VITALS: O2SAT 95
[2024-12-12] MEDS ORDERED: ONDANSETRON 4 MG/2 ML VIAL IV PRN (16:49)
[2024-12-12 16:58] VITALS: BMI 26.2
[2024-12-12] MEDS ORDERED: ACETAMINOPHEN 500 MG TAB PO PRN (20:54)
[2024-12-12] MEDS: NEBIVOLOL HCL 5 MG TAB PO SCH (21:21)
[2024-12-12] MEDS: ROSUVASTATIN 10 MG TAB PO SCH (21:21)
[2024-12-13] MEDS: LEVOTHYROXINE SOD 0.075 MG TAB PO SCH (05:59)
[2024-12-13 07:26] LABS: Absolute Basophils 0.1 K/uL (0-0.5); Absolute Eosinophils 0.2 K/uL (0-0.5); Absolute Lymphocytes (CBC) 2.6 K/uL (0.7-4.9); Absolute Monocytes 0.6 K/uL (0.1-1.3); Absolute Neutrophil 2.4 K/uL (1.8-8.0); Basophils % 1.2 % (0-1.3); Eosinophils % 3.3 % (0-4.4); Hematocrit 34.6 % (36.0-45.0); Hemoglobin 11.7 g/dL (12.0-15.0); Lymphocytes % 43.9 % (15.3-44.8); MCH 31.8 pg (27.0-35.0); MCHC 33.9 g/dL (32.0-36.0); MCV 93.7 fL (80-100); MPV 9.2 fL (7.6-11.3); Monocytes % 10.9 % (3.3-12.3); Neutrophils % 40.7 % (41.7-73.7); Nucleated Red Blood Cells % 0.2 % (0-0); Platelets 175 thou/uL (152-406); RBC Red Blood Cell Count 3.69 M/uL (3.86-4.86); Red Cell Distribution Width 13.4 % (12.1-15.2)
[2024-12-13 07:54] LABS: Albumin 3.1 g/dL (3.4-5.0); Albumin/Globulin Ratio 1.1 (1.1-1.8); Bilirubin Total 0.5 mg/dL (0.2-1.0); Globulin 2.8 g/dL (2.3-3.5); Protein, Total 5.9 g/dL (6.4-8.2)
[2024-12-13] MEDS ORDERED: METOPROLOL TAR 25 MG TAB PO SCH ×2 (08:00→09:00)
--- NOTE | 2024-12-13 08:45 | P.CNS ---
Date of Consult: 12/13/24 Chief Complaint: palpitations History of Present Illness: Patient with PMH of HTN, HLD presented with palpitations overnight, HR went up to 200, denies chest pain, no PAUL, no syncope. Allergies No Known Allergies Allergy (Verified 09/30/23 12:58) Home medications list reviewed: Yes Home Medications: Timolol 0.5% Opth [Timoptic 0.5% Opth*] 50 drops EACH EYE BEDTIME 08/22/16 Xalatan Opthalmic 0 drop OPTH BEDTIME 08/29/16 [place]-3S/Dha/Epa/Fish Oil [[place]-3 Fish Oil 1,200 mg Sfgl] 1 each PO DAILY 07/24/17 Vit C/E/Zn/Coppr/Lutein/Zeaxan [Preservision Areds 2 Softgel] 1 each PO BID 07/24/17 Levothyroxine [Synthroid*] 0.075 mg PO DAILY 12/12/24 Nebivolol HCl [Bystolic*] 5 mg PO DAILY 12/12/24 Rosuvastatin [Crestor*] 20 mg PO DAILY 12/12/24 - Past Medical/Surgical History Diabetic: No -: Hypothyroidism -: HTN -: Maurilio cataracts -: C Section x3 -: Hysterectomy -: Tonsillectomy -: R Shoulder Sx -: R Knee sx -: L Knee sx - Family History Father Medical History: Heart disease Mother Medical History: Stroke, Cancer - Social History Alcohol use: No CD- Drugs: No Caffeine use: Yes Place of Residence: Home Review of Systems 10-point ROS is otherwise unremarkable Physical Examination Temp Pulse Resp BP Pulse Ox 97.3 F 59 16 134/63 95 12/13/24 04:00 12/13/24 04:00 12/13/24 04:00 12/13/24 04:00 12/13/24 04:00 General: Alert, In no apparent distress HEENT: Atraumatic, PERRLA, Mucous membr. moist/pink, EOMI, Sclerae nonicteric Neck: Supple, 2+ carotid pulse no bruit, No LAD, Without JVD or thyroid abnormality Respiratory: Clear to auscultation bilaterally, Normal air movement Cardiovascular: Regular rate/rhythm, Normal S1 S2 Gastrointestinal: Normal bowel sounds, No tenderness Musculoskeletal: No tenderness Integumentary: No rashes Neurological: Normal gait, Normal speech, Normal tone, Normal affect Lymphatics: No axilla or inguinal lymphadenopathy Laboratory Data (last 24 hrs) 12/12/24 12/12/24 12/12/24 11:26 11:26 11:26 WBC 6.00 Hgb 12.6 Hct 37.0 Plt Count 170 PT 11.9 INR 1.13 Sodium 141 Potassium 4.2 BUN 19 H Creatinine 0.83 Glucose 113 H Magnesium 2.2 - Problems (1) Palpitation Status: Acute Plan: agree with switching nebivolol to Metoprolol 25 mg po BID Outpatient follow up for event monitor.
[2024-12-13] MEDS ORDERED: ASPIRIN EC 81 MG TAB PO SCH (09:00)
[2024-12-13 09:49] VITALS: BP 159/62; TEMP 97.8
--- NOTE | 2024-12-14 12:18 | EKG ---
Test Date: 2024-12-12 Test Time: 17:41:26 Health Information Director: OJ MEASUREMENT RESULTS: Intervals: Rate: 60 [place]: 158 QRSD: 104 QT: 422 QTc: 422 [place]: P: -3 [place]: 158 QRS: 1 T: 5 INTERPRETIVE STATEMENTS: Sinus rhythm with occasional premature ventricular complexes ST abnormality, possible digitalis effect Abnormal ECG Compared to ECG 12/12/2024 17:40:14 Ventricular premature complex(es) now present ST (T wave) deviation now present Electronically Signed On 12-14-24 12:15:04 FISHER DIVING by Main Russ
--- NOTE | 2024-12-14 12:18 | EKG ---
Test Date: 2024-12-12 Test Time: 17:40:14 Licensing Worker: OJ MEASUREMENT RESULTS: Intervals: Rate: 61 [place]: 166 QRSD: 104 QT: 418 QTc: 420 [place]: P: -13 [place]: 166 QRS: 7 T: 12 INTERPRETIVE STATEMENTS: Normal sinus rhythm Normal ECG Compared to ECG 07/15/2024 23:16:37 Sinus bradycardia no longer present Left ventricular hypertrophy no longer present Electronically Signed On 12-14-24 12:15:10 FULLER BRUSH MAN by Main Russ
--- NOTE | 2024-12-14 12:19 | EKG ---
Test Date: 2024-12-12 Test Time: 11:13:18 Dance Coach: AM MEASUREMENT RESULTS: Intervals: Rate: 69 [place]: 178 QRSD: 104 QT: 406 QTc: 435 [place]: P: 34 [place]: 178 QRS: -3 T: 19 INTERPRETIVE STATEMENTS: Normal sinus rhythm Septal infarct, age undetermined Abnormal ECG Compared to ECG 07/15/2024 23:16:37 Myocardial infarct finding now present Sinus bradycardia no longer present Left ventricular hypertrophy no longer present Electronically Signed On 12-14-24 12:15:36 SHIPFITTER by Main Russ
--- NOTE | 2024-12-14 14:24 | HP ---
Date of Admission: 12/12/2024 Chief Complaint: Palpitation. History Of Present Illness: This is an 89-year-old very pleasant female patient, who has had history of palpitation off and on lately and it may last up to 1 hour or so as she describes, but yesterday when she had this episode, she checked her blood pressure and her blood pressure monitor reported her heart rate was around 200 while she was having palpitation and this feeling did not go away like it normally does, so she decided to come to emergency room. By the time she came into emergency room, h er feeling of palpitation had gone away. EKG in emergency room and surveillance system monitor had shown sinus r hythm. After appropriate workup was done in emergency room, I was contacted requesting admission to hospital and the patient was admitted to telemetry unit for observation. Overnight, her hospital sta y has remained unremarkable on telemetry unit and I have reviewed her telemetry unit tracing with the artificial breeding technician and there has not been any evidence of any cardiac arrhythmia and the patient has remaine d in sinus rhythm overnight on monitoring engineer. She denies any chest pain or shortness of breath a ssociated with palpitation. In the past, she had Holter monitor done by subway guard Dr. Forbes and echocardiogram on outpatient basis and those testing were unremarkable as she says, but obviously she did not have any palpitation while she was wearing a heart monitor. Allergies: TO VALACYCLOVIR CAUSING RASH AND HIVES. Medications: Aspirin 81 mg daily, Celebrex 200 mg daily as needed, vitamin D3 2000 units daily, levo thyroxine 75 mcg daily, rosuvastatin 20 mg daily, nebivolol 10 mg daily, and latanoprost eyedrops. Review of Systems: Cardiovascular: As mentioned above. All other systems reviewed and negative. Past Medical History: Significant for hypertension, hyperlipidemia, hypothyroidism, thyroid nodules, liver cyst, kidney stone, osteoarthritis at multiple sites. Past Surgical History: Cataract surgery, tonsillectomy, , hysterectomy, right shoulder surg diamond, left knee replacement, and foot surgery. Family History: Father had heart disease. Mother had breast cancer and stroke. Sister had Alzheime r's disease and breast cancer. Social History: Negative for smoking. Use of alcohol, glass of wine rarely. Physical Examination: Vital Signs: This morning, temperature 97.3, pulse 59, respiratory rate 16, blood pressure 134/63, o xygen saturation 95% on room air. Height 5 feet 3 inches, weight 148 pounds. General: Awake, alert, oriented, not in distress. HEENT: Head atraumatic, normocephalic. Conjunctivae nonerythematous. Sclerae white. Mouth, no thr ush or edema noted. Ears/Nose, no mass, lesion, discharge noted. Neck: Supple. No JVD, lymph nodes, bruit, thyromegaly noted. Lungs: Bilateral good equal air entry. Clear to auscultation. No rhonchi. No rales. Heart: Normal heart sounds, no murmur or gallop. Abdomen: Soft, bowel sounds normal. No guarding, rigidity, tenderness, mass, hepatosplenomegaly, dis tention, or bruit noted. Extremities: No leg edema. No calf tenderness. Skin: No rash, ulcer, cellulitis. Lymphatics: No lymph node enlargement in neck, supraclavicular, infraclavicular region. Neuro: No focal neurological deficit. Chest: Unremarkable. External Genitalia: Deferred. Rectal: Deferred. Laboratory Data: Yesterday, upon admission, WBC 6, hemoglobin 12.6, platelets 170. Sodium 141, pota ssium 4.2, chloride 110, bicarb 27, BUN 19, creatinine 0.83, glucose 113. Troponin 38.5 on the first set, second set 46.4, third set 43.6. TSH yesterday was 0.720, free T4 1.41. Magnesium was 2.2. T his morning, WBC 5.9, hemoglobin 11.7, platelets 175. Liver function tests unremarkable. Sodium 139 , potassium 4, chloride 109, bicarb 28, BUN 17, creatinine 0.71, glucose 100. CAT scan of the abdome n and pelvis, no significant abnormality noted. Presence of liver cyst in the right hepatic lobe unc hanged. Atherosclerotic changes of aorta involving abdominal aorta and diverticulosis. Chest x-ray does not show any acute intrathoracic changes. Hospital Course: After the patient was evaluated in emergency room, she was admitted to hospital. O vernight, she has remained in sinus rhythm on telemetry unit and has not had any recurrence of palpit ation. The patient's daughter was at bedside. My immediate concern will be whether we are dealing w ith supraventricular tachycardia or atrial fibrillation as likely scenario and we will need to identi fy first type of cardiac arrhythmia, so we can provide targeted treatment and appropriate interventio n and all those details were discussed with the patient and the patient's daughter. Since her Holter monitor really did not help to answer this question, she will need device like event monitor, where she can use it for longer period of time and try to capture this cardiac arrhythmia and this can be m anaged with subway guard office on outpatient basis. There is no need for ongoing hospital stay for this patient, but I have recommended her to discontinue her nebivolol and start metoprolol 25 mg 2 ti mes a day and I have also instructed her that she can take extra dose of 1 tablet of metoprolol on as needed basis when she ends up having this kind of palpitation problem. Prescription for metoprolol was sent to her pharmacy. I have instructed her to follow up at my office next week and to follow up with [employer] guard this week. Dr. Russ from Cardiology Service was consulted, who had chance to ev aluate the patient prior to her discharge also. Discharge Medications And Instructions: Continue all prior home medication except following changes: 1. Stop nebivolol. 2. Start metoprolol 25 mg take 1 tablet by mouth 2 times a day. 3. Follow up at my office next week. 4. Follow up with subway guard this week. Final Diagnoses: 1. Palpitation. 2. Hypertension. 3. Hyperlipidemia. 4. Diverticulosis. 5. Osteoarthritis, multiple sites. 6. Hypothyroidism. 7. Thyroid nodules. 8. Aortic atherosclerosis. Total time spent 90 minutes including review of last 2 office visit records, review of emergency room visit record, communication with emergency room physician, performing today's evaluation and management, and review of cardiology cons ultation report. JESENIA/MODL Voice ID: [id number]
== END 2024-12-13 08:42 | disposition home or self-care (01) ==
LOC: ER 09:45 → ERHOLD 14:21 → 2ND 15:03
PROVIDERS: ADMIT Internal Medicine; ATTEND Internal Medicine
DX: R00.2 Palpitations (principal); I10 Essential (primary) hypertension; E78.5 Hyperlipidemia, unspecified; E03.9 Hypothyroidism, unspecified; M19.90 Unspecified osteoarthritis, unspecified site; N20.0 Calculus of kidney; K57.90 Diverticulosis of intestine, part unspecified, without perforation or abscess without bleeding; E04.2 Nontoxic multinodular goiter; I70.0 Atherosclerosis of aorta
CPT/HCPCS: 93005 ×3; 85025 ×2; 80048; 36415; 83735; 85610; 82947; 84443; 84484 ×3; 84439; 80053; 83880; 74177; 71045; 99285; Q9967; G0378 ×3